=== PATIENT | female | born 1940 | race Caucasian/White ===

== ENCOUNTER 2019-08-15 11:36 | Observation (INO) ==
[2019-08-15] MEDS ORDERED: SODIUM CHLORIDE 0.9% 500 ML IV SCH (13:15)
--- NOTE | 2019-08-15 13:19 | Emergency Department Note ---
Impression & Plan Near syncope, Bigeminy, Bradycardia, Diaphoresis ED Provider Note NAME: RENATO ALICIA AGE: 78 SEX: F : 1940 ARRIVES VIA: Ambulance INFORMANT: [Patient][ems] ED PROVIDER(S): [Inocencio Cohn MD] CHIEF COMPLAINT: Near syncope HISTORY OF PRESENT ILLNESS: The patient is a 78-year-old female who presents by EMS after a near syncopal episode. The patient was outside and on the way in, began to feel warm across the chest. No chest pain, no dyspnea. She felt lightheaded and dizzy. She sat down in a chair and began to sweat. She felt quite faint. She was nauseated and vomited 1 time. Her whole episode lasted for about 15 to 20 minutes. Again, no chest pain or shortness of breath. The patient's pulse was noted to be low and EMS was summoned. The patient states she now feels better than before. She is on digoxin for a reported faster heart rate. She has had 5 coronary stents but never had an OK. The patient states she does at times get dizzy. The spells usually last few seconds at most, this was quite a bit longer and scared her. REVIEW OF SYSTEMS: See HPI for pertinent positives and negatives. A total of ten systems were reviewed and were otherwise negative. PMHx/PSHx: See Below SOCIAL HISTORY: See Below. PHYSICAL EXAM: GENERAL: Patient is in no acute distress. HEENT: No acute trauma, normocephalic atraumatic, mucous membranes moist, no nasal congestion, no scleral icterus. NECK: No stridor, no adenopathy, no meningismus, trachea is midline. LUNGS: Clear to auscultation bilaterally, no wheeze, no rhonchi, breath sounds equal. HEART: Irregular rhythm, somewhat bradycardic, no murmurs. ABDOMEN: Soft, nontender, bowel sounds positive, no hernias, no peritonitis. EXTREMITIES: No cyanosis or edema, full range of motion of all the joints without pain or difficulty, no signs for acute trauma. NEUROLOGIC: Oriented x 3, no acute motor or sensory deficits, no focal weakness. SKIN: No rash, no jaundice, no diaphoresis. DIFFERENTIAL DIAGNOSIS: Infection, dehydration, metabolic abnormality, hypo/hyperglycemia, dysrhythmia, A. fib or a flutter, OK, electrolyte disturbance, anemia, hypoxia, cardiac sources, intracerebral event, toxicologic, neurologic, as well as other pathologies. EMERGENCY DEPARTMENT COURSE/PROCEDURES: ECG: Indication was near syncope. The EKG shows a sinus rhythm with PVCs in a pattern of bigeminy. The rate is 68. There is no ST elevation, the QTc is 416. No PACs. Continuous Cardiac Monitoring: An order was placed for continuous cardiac monitoring. The monitor shows a rate of 66 with sinus rhythm with frequent PVCs. MEDICAL DECISION MAKING: There is a very slight leukocytosis, this could be consistent with the stress of her situation or possibly infection. A very mild anemia was noted. There was a normal platelet count. There was some dehydration/renal insufficiency present with a creatinine of 1.34. Magnesium was low at 1.6. No concerning liver enzyme elevation. The patient appeared to be in a euthyroid state. Urinalysis does not show evidence for infection. Digoxin level was actually low. EKG showed sinus rhythm with bigeminy, basically very frequent PVCs. Cardiac enzyme testing x1 was not consistent with acute cardiac injury. The patient received IV saline for hydration. She was given oral and IV magnesium. The patient presents with a near syncopal event. She was bradycardic on scene. She has had multiple PVCs, at times, she is in bigeminy. Given her cardiac history, given her presentation and findings, I do think a hospital stay is warranted. I did speak to the patient and wrapper caser. The on-call hospitalist was consulted. Past Med/Surg History Medical History CAD (coronary artery disease) DM w/o complication type II Right leg DVT 03/2019 - treated 3 months with eliquis (provoked by arthroscopic knee surgery) Surgical History H/O arthroscopy of right knee H/O: hysterectomy History of coronary artery stent placement 5 stents S/P appendectomy S/P laparoscopic cholecystectomy Family History Daughter , age 57 Coronary heart disease Congestive heart failure Father , age 71 Heart disease Mother , age 77 Heart disease Diabetes Social History Preferred Language: Eritrean Communication Ability: Effective Audio Operator Required: No Beliefs That Will Affect Care: None marital status: Current Living Situation: Spouse current occupational status: retired current occupation: worked in [employer] nearly 40 years Other Information That Helps Us Care for You: No other: 3 children; 1 recently (daughter) Feels Safe at Home: Yes Safety Concerns: Feels Safe At This Time Smoking Status: Never smoker Hx Alcohol Use: No Hx Substance Use: No Allergies Allergies Allergy/AdvReac Type Severity Reaction Status Date / Time No Known Allergies Allergy Unverified 08/15/19 14:03 Home Meds Home Medications Medication Instructions Recorded Confirmed aspirin [Aspir-81] 81 mg PO QAM 08/15/19 08/15/19 carvedilol 12.5 mg PO BID 08/15/19 08/15/19 digoxin 125 mcg PO QAM 08/15/19 08/15/19 metformin 1,000 mg PO BID 08/15/19 08/15/19 Results & Data (ED) Vital Signs Vital Signs - 24 hr 08/15/19 11:51 08/15/19 13:22 08/15/19 13:51 Temperature 36.7 C Temperature Source Oral Pulse Rate 73 Pulse Rate [Apical] 68 Respiratory Rate 18 18 Blood Pressure 158/51 H Blood Pressure [Left Arm] 151/52 H Blood Pressure Mean 86 Blood Pressure Mean [Left Arm] 85 Pulse Oximetry 98 96 97 Oxygen Delivery Method Room Air Room Air Room Air Sepsis Recent Fever Within 48 Hours No Sepsis New/Unexplained Change in Mental Status No Sepsis Action Taken by Nursing No Action Required 08/15/19 15:00 Temperature Temperature Source Pulse Rate Pulse Rate [Apical] 81 Respiratory Rate 18 Blood Pressure Blood Pressure [Left Arm] 168/102 H Blood Pressure Mean Blood Pressure Mean [Left Arm] 124 Pulse Oximetry 97 Oxygen Delivery Method Room Air Sepsis Recent Fever Within 48 Hours Sepsis New/Unexplained Change in Mental Status Sepsis Action Taken by Shelter Medications Current Medication List: was personally reviewed by me Laboratory Data Attestation: I reviewed the patient's lab results. Result diagrams: 08/15/19 12:20 08/15/19 12:20 Lab Results 08/15/19 08/15/19 08/15/19 Range/Units 12:20 12:20 12:20 WBC 10.89 H (4.8-10.8) K/uL RBC 3.69 L (4.2-5.4) M/uL Hgb 11.1 L (12.0-16.0) g/dL Hct 34.2 L (37-47) % MCV 92.7 (80-100) fL MCH 30.1 (25-34) pg MCHC 32.5 (32-36) g/dL RDW Std Deviation 48.6 H (36.4-46.3) fL RDW Coeff of Valerie 14.2 (11.5-14.5) % Plt Count 339 (130-400) K/uL MPV 11.4 H (7.4-10.4) fL Immature Gran % (Auto) 0.2 % Neut % (Auto) 66.6 % Lymph % (Auto) 24.1 % [place] % (Auto) 5.9 % Eos % (Auto) 1.7 % Baso % (Auto) 1.5 % Immature Gran # (Auto) 0.02 (0.00-0.02) K/uL Neut # (Auto) 7.27 H (1.4-6.5) K/uL Lymph # (Auto) 2.62 (1.2-3.4) K/uL [place] # (Auto) 0.64 H (0.11-0.59) K/uL Eos # (Auto) 0.18 (0-0.5) K/uL Baso # (Auto) 0.16 (0-0.2) K/uL Sodium 140 (136-145) mmol/L Potassium 4.6 (3.5-5.1) mmol/L Chloride 107 (98-107) mmol/L Carbon Dioxide 25 (21-32) mmol/L Anion Gap 8.0 (3-11) BUN 19 H (7-18) mg/dl Creatinine 1.34 H (0.6-1.2) mg/dl Est Cr Clr Drug Dosing 29.0 ml/min Est GFR ( Amer) 44.2 Est GFR (Non-Af Amer) 38.1 BUN/Creatinine Ratio 13.8 (10-20) Glucose 104 H (70-99) mg/dl Calcium 8.8 (8.5-10.1) mg/dl Magnesium 1.6 L (1.8-2.4) mg/dl Total Bilirubin 0.3 (0.2-1) mg/dl AST 15 (15-37) U/L ALT 12 (12-78) U/L Alkaline Phosphatase 57 (45-117) U/L Troponin I < 0.015 (0-0.045) ng/ml Total Protein 6.6 (6.4-8.2) gm/dl Albumin 2.9 L (3.4-5.0) gm/dl Globulin 3.7 (2.5-4.0) gm/dl Albumin/Globulin Ratio 0.8 L (0.9-2) TSH 2.650 (0.300-4.500) uIu/ml Urine Color Urine Appearance (Clear) Urine pH (4.5-7.5) Ur Specific [place] (1.000-1.030) Urine Protein (Negative) Urine Glucose (UA) (Negative) Urine Ketones (Negative) Urine Blood (Negative) Urine Nitrite (Negative) Urine Bilirubin (Negative) Urine Urobilinogen (Negative) Ur Leukocyte Esterase (Negative) Digoxin 0.2 L (0.8-2.0) ng/ml 08/15/19 Range/Units 15:50 WBC (4.8-10.8) K/uL RBC (4.2-5.4) M/uL Hgb (12.0-16.0) g/dL Hct (37-47) % MCV (80-100) fL MCH (25-34) pg MCHC (32-36) g/dL RDW Std Deviation (36.4-46.3) fL RDW Coeff of Valerie (11.5-14.5) % Plt Count (130-400) K/uL MPV (7.4-10.4) fL Immature Gran % (Auto) % Neut % (Auto) % Lymph % (Auto) % [place] % (Auto) % Eos % (Auto) % Baso % (Auto) % Immature Gran # (Auto) (0.00-0.02) K/uL Neut # (Auto) (1.4-6.5) K/uL Lymph # (Auto) (1.2-3.4) K/uL [place] # (Auto) (0.11-0.59) K/uL Eos # (Auto) (0-0.5) K/uL Baso # (Auto) (0-0.2) K/uL Sodium (136-145) mmol/L Potassium (3.5-5.1) mmol/L Chloride (98-107) mmol/L Carbon Dioxide (21-32) mmol/L Anion Gap (3-11) BUN (7-18) mg/dl Creatinine (0.6-1.2) mg/dl Est Cr Clr Drug Dosing ml/min Est GFR ( Amer) Est GFR (Non-Af Amer) BUN/Creatinine Ratio (10-20) Glucose (70-99) mg/dl Calcium (8.5-10.1) mg/dl Magnesium (1.8-2.4) mg/dl Total Bilirubin (0.2-1) mg/dl AST (15-37) U/L ALT (12-78) U/L Alkaline Phosphatase (45-117) U/L Troponin I (0-0.045) ng/ml Total Protein (6.4-8.2) gm/dl Albumin (3.4-5.0) gm/dl Globulin (2.5-4.0) gm/dl Albumin/Globulin Ratio (0.9-2) TSH (0.300-4.500) uIu/ml Urine Color Yellow Urine Appearance Clear (Clear) Urine pH 5.0 (4.5-7.5) Ur Specific [place] 1.012 (1.000-1.030) Urine Protein Negative (Negative) Urine Glucose (UA) Negative (Negative) Urine Ketones Negative (Negative) Urine Blood Negative (Negative) Urine Nitrite Negative (Negative) Urine Bilirubin Negative (Negative) Urine Urobilinogen Negative (Negative) Ur Leukocyte Esterase Negative (Negative) Digoxin (0.8-2.0) ng/ml Administered Medications Carvedilol (Coreg) 12.5 mg PO BID [facility] Stop: 09/14/19 20:59 Last Admin: 08/15/19 20:05 Dose: 12.5 mg Documented by: [id number] Enoxaparin Sodium (Lovenox) 30 mg SQ Q24H [facility] Stop: 09/14/19 19:59 Last Admin: 08/15/19 20:05 Dose: 30 mg Documented by: [id number] Sodium Chloride (Nss 1000ml) 1,000 mls @ 75 mls/hr IV .[id number] [facility] Stop: 08/16/19 08:13 Last Admin: 08/15/19 20:04 Dose: 75 mls/hr Documented by: [id number] Insulin Aspart (Novolog Flexpen) 0 units SC ACHS [facility] Stop: 09/14/19 18:53 Last Admin: 08/15/19 20:04 Dose: Not Given Documented by: [id number] Cosigned by: [id number] Admin: 08/15/19 20:04 Dose: Not Given Documented by: [id number] Cosigned by: [id number] Discontinued Medications Sodium Chloride (Nss) 500 mls @ 999 mls/hr IV .Q31M [facility] Stop: 08/15/19 13:45 Last Infusion: 08/15/19 14:01 Dose: 0 mls/hr Documented by: [id number] Admin: 08/15/19 13:27 Dose: 999 mls/hr Documented by: [id number] Magnesium Sulfate/Dextrose (Magnesium Sulfate / D5w) 1 gm in 100 mls @ 100 mls/hr IV NOW STA Stop: 08/15/19 14:37 Last Infusion: 08/15/19 14:51 Dose: 0 mls/hr Documented by: [id number] Admin: 08/15/19 13:47 Dose: 100 mls/hr Documented by: [id number] Magnesium Oxide (Mag-Ox) 400 mg PO NOW STA Stop: 08/15/19 13:39 Last Admin: 08/15/19 13:47 Dose: 400 mg Documented by: [id number] Imaging Data Radiologist's Impression: XR chest 1V portable HISTORY: 78 years-old Female weakness acute weakness COMPARISON: None TECHNIQUE: Portable AP view of the chest FINDINGS: Cardiomediastinal and hilar silhouettes are within normal limits. Coronary arterial stent. Calcified plaque of the thoracic aortic arch. No pneumothorax, large pleural effusion, overt pulmonary edema or airspace consolidation typical for pneumonia. Mild blunting of the costophrenic angles. Degenerative changes of the shoulders and spine. IMPRESSION: 1. No airspace consolidation to suggest pneumonia. 2. Mild blunting of the costophrenic angles may be secondary to atelectasis versus trace effusions. Blood Pressure Blood Pressure Findings: Elevated blood pressure Blood Pressure Disposition: further management by hospitalist Discharge Plan Visit Data *Final* Discharge Date/Time: 08/15/19 18:11 Chief Complaint: Syncope (Near Syncope) Stated Complaint: Near Syncope/Bradycardia ED Provider: Inocencio Cohn Discharge Problem: Near syncope, Bigeminy, Bradycardia, Diaphoresis Patient Disposition: Admitted As Inpatient Condition: Good Discharge Instructions Interventions: ED Discharge Assessment Last Done: 08/15/19 18:11
[2019-08-15 13:28] LABS: Basophils # (auto) 0.16 K/uL (0-0.2); Basophils % (auto) 1.5 %; Eosinophils # (auto) 0.18 K/uL (0-0.5); Eosinophils % (auto) 1.7 %; Hematocrit (blood only) 34.2 % (37-47); Hemoglobin 11.1 g/dL (12.0-16.0); Immature Granulocytes # (auto) 0.02 K/uL (0.00-0.02); Immature Granulocytes % (auto) 0.2 %; Lymphocytes # (auto) 2.62 K/uL (1.2-3.4); Lymphocytes % (auto) 24.1 %; Mean Corpuscular Hemoglobin 30.1 pg (25-34); Mean Corpuscular Hgb Conc 32.5 g/dL (32-36); Mean Corpuscular Volume 92.7 fL (80-100); Mean Platelet Volume 11.4 fL (7.4-10.4); Monocytes # (auto) 0.64 K/uL (0.11-0.59); Monocytes % (auto) 5.9 %; Neutrophils # (auto) 7.27 K/uL (1.4-6.5); Neutrophils % (auto) 66.6 %; Platelet Count 339 K/uL (130-400); RDW Coefficient of Variation 14.2 % (11.5-14.5); RDW Standard Deviation 48.6 fL (36.4-46.3); Red Blood Count 3.69 M/uL (4.2-5.4); White Blood Count 10.89 K/uL (4.8-10.8)
[2019-08-15 13:35] LABS: Albumin Level 2.9 gm/dl (3.4-5.0); BUN Creatinine Ratio 13.8 (10-20); Blood Urea Nitrogen 19 mg/dl (7-18); Calcium 8.8 mg/dl (8.5-10.1); Carbon Dioxide 25 mmol/L (21-32); Chloride 107 mmol/L (98-107); Est GFR (African American) 44.2; Est GFR (Non-African American) 38.1; Glucose 104 mg/dl (70-99); Magnesium 1.6 mg/dl (1.8-2.4); Potassium 4.6 mmol/L (3.5-5.1); Sodium 140 mmol/L (136-145)
--- NOTE | 2019-08-15 13:36 | XRay Report ---
XR chest 1V portable HISTORY: 78 years-old Female weakness acute weakness COMPARISON: None TECHNIQUE: Portable AP view of the chest FINDINGS: Cardiomediastinal and hilar silhouettes are within normal limits. Coronary arterial stent. Calcified plaque of the thoracic aortic arch. No pneumothorax, large pleural effusion, overt pulmonary edema or airspace consolidation typical for pneumonia. Mild blunting of the costophrenic angles. Degenerative changes of the shoulders and spine. IMPRESSION: 1. No airspace consolidation to suggest pneumonia. 2. Mild blunting of the costophrenic angles may be secondary to atelectasis versus trace effusions. ACT 112: Negative or not required by law. The above report was generated using voice recognition software. It may contain grammatical, syntax o r spelling errors. Electronically signed by: Jasson Driver M.D. 08/15/2019 1:35 PM
[2019-08-15] MEDS ORDERED: MAGNESIUM SULFATE / D5W 1 GM/100 ML BAG IV STA (13:38)
[2019-08-15] MEDS ORDERED: MAGNESIUM OXIDE 400 MG TAB PO STA (13:38)
[2019-08-15 13:46] LABS: Alanine Aminotransferase 12 U/L (12-78); Albumin Globulin Ratio 0.8 (0.9-2); Alkaline Phosphatase 57 U/L (45-117); Aspartate Aminotransferase 15 U/L (15-37); Bilirubin,Total 0.3 mg/dl (0.2-1); Globulin 3.7 gm/dl (2.5-4.0); Total Protein 6.6 gm/dl (6.4-8.2); Troponin I < 0.015 ng/ml (0-0.045)
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
--- NOTE | 2019-08-15 15:34 | Electrocardiogram Report ---
Test Reason : Blood Pressure : / mmHG Vent. Rate : 068 BPM Atrial Rate : 068 BPM P-R Int : 168 ms QRS Dur : 088 ms QT Int : 392 ms P-R-T Axes : 016 013 031 degrees QTc Int : 416 ms Sinus rhythm with frequent Premature ventricular complexes in a pattern of bigeminy Otherwise normal ECG No previous ECGs available Confirmed by Jamey Trejo ([id number]) on 08/15/2019 3:33:49 PM Referred By: REFERRED SELF Confirmed By:Rick Trejo
[2019-08-15 16:12] LABS: Appearance Urine Clear (Clear); Bilirubin Urine Negative (Negative); Blood Urine Negative (Negative); Color Urine Yellow; Glucose Urine UA Negative (Negative); Ketones Urine Negative (Negative); Leukocyte Esterase Urine Negative (Negative); Nitrite Urine Negative (Negative); Protein Urine Negative (Negative); Specific Gravity Urine 1.012 (1.000-1.030); Urobilinogen Urine Negative (Negative)
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
[2019-08-15] MEDS ORDERED: SODIUM CHLORIDE 0.9% 1000ML 1,000 ML IV SCH (18:54)
[2019-08-15] MEDS ORDERED: ONDANSETRON INJ 2 MG/ML 2 ML VIAL IV PRN (18:54)
[2019-08-15] MEDS ORDERED: ACETAMINOPHEN 325 MG TAB PO PRN (18:54)
[2019-08-15] MEDS ORDERED: NITROGLYCERIN SL 0.4 MG/TAB TAB SL PRN (18:54)
[2019-08-15] MEDS ORDERED: CARBOHYDRATES FOR HYPOGLYCEMIA PO PRN (19:15)
[2019-08-15] MEDS ORDERED: GLUCOSE 10 TABS/TUBE PO PRN (19:15)
[2019-08-15] MEDS ORDERED: GLUCOSE 40% GEL 15 GM TUBE PO PRN (19:15)
[2019-08-15] MEDS ORDERED: GLUCAGON FOR INJ 1 MG VIAL IM PRN (19:15)
[2019-08-15] MEDS ORDERED: DEXTROSE 50% 50 ML SYRINGE IV PRN (19:15)
[2019-08-15] MEDS ORDERED: ENOXAPARIN INJ 30 MG/0.3 ML SYR SQ SCH (20:00)
[2019-08-15] MEDS: INSULIN ASPART 100 UNITS/ML 3 ML PEN SC SCH (20:04)
[2019-08-15] MEDS: carvediloL 12.5 MG TAB PO SCH (20:05)
[2019-08-16] MEDS: carvediloL 12.5 MG TAB PO SCH (07:33)
[2019-08-16] MEDS: INSULIN ASPART 100 UNITS/ML 3 ML PEN SC SCH ×2 (08:38→12:22)
[2019-08-16] MEDS ORDERED: ASPIRIN 81 MG ECTAB PO SCH (09:00)
--- NOTE | 2019-08-16 09:30 | XCELERA ---
[id number]
[2019-08-16 10:17] LABS: Basophils # (auto) 0.11 K/uL (0-0.2); Basophils % (auto) 1.3 %; Eosinophils # (auto) 0.25 K/uL (0-0.5); Eosinophils % (auto) 2.9 %; Hemoglobin 10.4 g/dL (12.0-16.0); Immature Granulocytes # (auto) 0.02 K/uL (0.00-0.02); Immature Granulocytes % (auto) 0.2 %; Lymphocytes # (auto) 2.75 K/uL (1.2-3.4); Mean Corpuscular Hemoglobin 29.6 pg (25-34); Mean Corpuscular Hgb Conc 31.5 g/dL (32-36); Mean Platelet Volume 10.7 fL (7.4-10.4); Monocytes # (auto) 0.31 K/uL (0.11-0.59); Monocytes % (auto) 3.6 %; Neutrophils # (auto) 5.16 K/uL (1.4-6.5); Platelet Count 323 K/uL (130-400); RDW Coefficient of Variation 14.4 % (11.5-14.5); RDW Standard Deviation 49.3 fL (36.4-46.3); Red Blood Count 3.51 M/uL (4.2-5.4)
--- NOTE | 2019-08-16 10:29 | Cardiology Progress Note ---
Date of Service August 16, 2019 Assessment & Plan (1) Pre-syncope: Believe the etiology the patient's episode was likely high vagal tone. There was some concern regarding an arrhythmia given her cardiac history. However, with preserved LV systolic function in the absence of notable arrhythmi as on telemetry monitoring he would be safe for discharge. (2) Ventricular bigeminy: Does have frequent PVCs. She is not symptomatic. She has preserved LV systolic function. She is on a beta-medardo which could be increased over time perhaps improved efficacy in reducing PVCs.. (3) CAD (coronary artery disease): No current symptoms to suggest coronary insufficiency or angina. I do not think her symptoms were related to an acute coronary event. Symptoms leading up to her prior interventions involve mostly dyspnea which he has not had recently. She should continue on secondary prevention. She is on aspirin. She is not on a anti-lipid agent. Admission and Anticipated Discharge Date Admission Date: August 15, 2019 Subjective Summary the patient is feeling well. No recurrent symptoms of nausea or dizziness. She has not been aware of palpitations. She has been ambulatory without dizziness or recurrent symptoms. Review of Systems Review of Systems: Per HPI Physical Exam Physical Exam: She is alert and oriented x3. Mood affect appear normal. She answered all questions appropriately. HEENT: Sclerae are anicteric. Pupils are equal and reactive to light and accommodation. Extraocular movements were intact. Neuro: Cranial nerves intact Lungs: Lungs are clear to auscultation bilaterally. There are no rales wheezes or rhonchi. She has normal respiratory effort without use of accessory muscles. There is normal pulmonary excursion. Cardiac: The rhythm was irregular with frequent ectopy. S1 and S2 were normal. There are no murmurs on examination. The PMI was not markedly displaced on palpation. Abdomen: The abdomen was soft and nontender. Extremities: Patient has bilateral radial pulses that are equal in intensity. There is no evidence cyanosis or clubbing. There was no evidence of significant peripheral edema bilaterally. Skin: There are no rashes noted on examination today. She has some abrasions on her right hand and forearm Results & Data ([facility]) Vital Signs (Past 12 Hours) Vital Signs Temp Pulse Pulse Resp BP BP Pulse Ox 08/16/19 07:47 36.6 C 86 18 145/71 H 95 08/16/19 04:34 36.5 C 64 17 138/58 L 98 08/16/19 00:18 36.4 C L 56 L 18 125/60 96 Laboratory Results Abnormal Lab Results 08/15/19 08/15/19 08/15/19 12:20 12:20 12:20 WBC 10.89 H RBC 3.69 L Hgb 11.1 L Hct 34.2 L MCV 92.7 MCH 30.1 MCHC 32.5 RDW Std Deviation 48.6 H RDW Coeff of Valerie 14.2 Plt Count 339 MPV 11.4 H Immature Gran % (Auto) 0.2 Neut % (Auto) 66.6 Lymph % (Auto) 24.1 Wheeler % (Auto) 5.9 Eos % (Auto) 1.7 Baso % (Auto) 1.5 Immature Gran # (Auto) 0.02 Neut # (Auto) 7.27 H Lymph # (Auto) 2.62 Wheeler # (Auto) 0.64 H Eos # (Auto) 0.18 Baso # (Auto) 0.16 Sodium 140 Potassium 4.6 Chloride 107 Carbon Dioxide 25 Anion Gap 8.0 BUN 19 H Creatinine 1.34 H Est Cr Clr Drug Dosing 29.0 Est GFR ( Amer) 44.2 Est GFR (Non-Af Amer) 38.1 BUN/Creatinine Ratio 13.8 Glucose 104 H POC Glucose Calcium 8.8 Magnesium 1.6 L Total Bilirubin 0.3 AST 15 ALT 12 Alkaline Phosphatase 57 Troponin I < 0.015 Total Protein 6.6 Albumin 2.9 L Globulin 3.7 Albumin/Globulin Ratio 0.8 L TSH 2.650 Urine Color Urine Appearance Urine pH Ur Specific [place] Urine Protein Urine Glucose (UA) Urine Ketones Urine Blood Urine Nitrite Urine Bilirubin Urine Urobilinogen Ur Leukocyte Esterase Digoxin 0.2 L 08/15/19 08/15/19 08/15/19 15:50 19:03 19:06 WBC RBC Hgb Hct MCV MCH MCHC RDW Std Deviation RDW Coeff of Valerie Plt Count MPV Immature Gran % (Auto) Neut % (Auto) Lymph % (Auto) Wheeler % (Auto) Eos % (Auto) Baso % (Auto) Immature Gran # (Auto) Neut # (Auto) Lymph # (Auto) Wheeler # (Auto) Eos # (Auto) Baso # (Auto) Sodium Potassium Chloride Carbon Dioxide Anion Gap BUN Creatinine Est Cr Clr Drug Dosing Est GFR ( Amer) Est GFR (Non-Af Amer) BUN/Creatinine Ratio Glucose POC Glucose 87 Calcium Magnesium Total Bilirubin AST ALT Alkaline Phosphatase Troponin I < 0.015 Total Protein Albumin Globulin Albumin/Globulin Ratio TSH Urine Color Yellow Urine Appearance Clear Urine pH 5.0 Ur Specific [place] 1.012 Urine Protein Negative Urine Glucose (UA) Negative Urine Ketones Negative Urine Blood Negative Urine Nitrite Negative Urine Bilirubin Negative Urine Urobilinogen Negative Ur Leukocyte Esterase Negative Digoxin 08/16/19 08/16/19 08/16/19 01:07 08:11 09:58 WBC 8.60 RBC 3.51 L Hgb 10.4 L Hct 33.0 L MCV 94.0 MCH 29.6 MCHC 31.5 L RDW Std Deviation 49.3 H RDW Coeff of Valerie 14.4 Plt Count 323 MPV 10.7 H Immature Gran % (Auto) 0.2 Neut % (Auto) 60.0 Lymph % (Auto) 32.0 Wheeler % (Auto) 3.6 Eos % (Auto) 2.9 Baso % (Auto) 1.3 Immature Gran # (Auto) 0.02 Neut # (Auto) 5.16 Lymph # (Auto) 2.75 Wheeler # (Auto) 0.31 Eos # (Auto) 0.25 Baso # (Auto) 0.11 Sodium Potassium Chloride Carbon Dioxide Anion Gap BUN Creatinine Est Cr Clr Drug Dosing Est GFR ( Amer) Est GFR (Non-Af Amer) BUN/Creatinine Ratio Glucose POC Glucose 136 H Calcium Magnesium Total Bilirubin AST ALT Alkaline Phosphatase Troponin I < 0.015 Total Protein Albumin Globulin Albumin/Globulin Ratio TSH Urine Color Urine Appearance Urine pH Ur Specific [place] Urine Protein Urine Glucose (UA) Urine Ketones Urine Blood Urine Nitrite Urine Bilirubin Urine Urobilinogen Ur Leukocyte Esterase Digoxin Diagnostic Findings Echocardiogram performed today revealed preserved LV systolic function. Mild mitral regurgitation. ECG Additional Comments: Laboratory demonstrated frequent PVCs but no other significant arrhythmias. No significant pauses. PG Care Time/CCT Total # of Minutes Spent Total Time Spent with Patient: Total time spent is greater than 50% in coordination of care (as documented) at patient's floor/unit and/or counseling patient: Coding Level of Care Code 51378 Subseq Hosp Care Lvl 2 Diagnoses Pre-syncope R55 Ventricular bigeminy I49.9 CAD (coronary artery disease) I25.10 Coronary Disease-Associated Artery/Lesion type: [place] artery [place] vs. transplanted heart: [place] heart Associated angina: without angina (1) CAD (coronary artery disease) Coronary Disease-Associated Artery/Lesion type: [place] artery [place] vs. transplanted heart: [place] heart Associated angina: without angina Qualified Code(s): I25.10 - Atherosclerotic heart disease of [place] coronary artery without angina pectoris
[2019-08-16 10:37] LABS: BUN Creatinine Ratio 11.9 (10-20); Calcium 8.2 mg/dl (8.5-10.1); Creatinine Clr Calc Pharmacy 32.7 ml/min; Est GFR (African American) 51.5; Est GFR (Non-African American) 44.5; Magnesium 1.7 mg/dl (1.8-2.4); Potassium 4.3 mmol/L (3.5-5.1)
[2019-08-16 10:42] LABS: Ferritin 86.6 ng/ml (8-388)
[2019-08-16 10:48] LABS: Folate (Folic Acid) 12.84 ng/ml (>5.38)
[2019-08-16] MEDS ORDERED: MAGNESIUM SULFATE / D5W 1 GM/100 ML BAG IV ONE (11:00)
--- NOTE | 2019-08-16 12:16 | Electrocardiogram Report ---
Test Reason : Blood Pressure : / mmHG Vent. Rate : 059 BPM Atrial Rate : 059 BPM P-R Int : 176 ms QRS Dur : 088 ms QT Int : 422 ms P-R-T Axes : 004 019 030 degrees QTc Int : 417 ms Sinus bradycardia with frequent Premature ventricular complexes in a pattern of bigeminy Otherwise normal ECG When compared with ECG of 15-AUG-2019 11:47, No significant change was found Confirmed by Jamey Trejo ([id number]) on 08/16/2019 12:15:35 PM Referred By: REFERRED SELF Confirmed By:Rick Trejo
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
== END 2019-08-16 14:25 | disposition home or self-care (01) ==
LOC: ED 11:36 → 2W 11:36 → SUATTDRO 16:07 → 2W 18:11

== ENCOUNTER 2020-07-08 15:59 | Observation (INO) ==
[2020-07-08 16:32] LABS: Basophils # (auto) 0.06 K/uL (0-0.2); Basophils % (auto) 0.5 %; Eosinophils # (auto) 0.19 K/uL (0-0.5); Eosinophils % (auto) 1.7 %; Hematocrit (blood only) 36.8 % (37-47); Hemoglobin 12.1 g/dL (12.0-16.0); Immature Granulocytes # (auto) 0.01 K/uL (0.00-0.02); Immature Granulocytes % (auto) 0.1 %; Lymphocytes # (auto) 3.44 K/uL (1.2-3.4); Lymphocytes % (auto) 31.3 %; Mean Corpuscular Hemoglobin 30.2 pg (25-34); Mean Corpuscular Hgb Conc 32.9 g/dL (32-36); Mean Corpuscular Volume 91.8 fL (80-100); Mean Platelet Volume 11.7 fL (7.4-10.4); Monocytes # (auto) 0.73 K/uL (0.11-0.59); Monocytes % (auto) 6.6 %; Neutrophils # (auto) 6.57 K/uL (1.4-6.5); Neutrophils % (auto) 59.8 %; Platelet Count 290 K/uL (130-400); RDW Coefficient of Variation 14.5 % (11.5-14.5); RDW Standard Deviation 48.9 fL (36.4-46.3); Red Blood Count 4.01 M/uL (4.2-5.4)
[2020-07-08 16:42] LABS: Alanine Aminotransferase 13 U/L (12-78); Albumin Level 3.4 gm/dl (3.4-5.0); Aspartate Aminotransferase 15 U/L (15-37); BUN Creatinine Ratio 13.7 (10-20); Blood Urea Nitrogen 21 mg/dl (7-18); Calcium 9.1 mg/dl (8.5-10.1); Carbon Dioxide 26 mmol/L (21-32); Chloride 106 mmol/L (98-107); Creatinine Clr Calc Pharmacy 27.4 ml/min; Est GFR (African American) 37.7; Est GFR (Non-African American) 32.5; Glucose 88 mg/dl (70-99); Magnesium 1.8 mg/dl (1.8-2.4); Potassium 4.2 mmol/L (3.5-5.1); Sodium 140 mmol/L (136-145)
[2020-07-08 16:46] LABS: Partial Thromboplastin Ratio 0.8; Partial Thromboplastin Time 20.9 Seconds (21.0-31.0); Prothrombin Time 10.3 Seconds (9.0-12.0)
[2020-07-08 16:53] LABS: Albumin Globulin Ratio 0.9 (0.9-2); Alkaline Phosphatase 55 U/L (45-117); Bilirubin,Total 0.3 mg/dl (0.2-1); Globulin 3.6 gm/dl (2.5-4.0); Troponin I < 0.015 ng/ml (0-0.045)
--- NOTE | 2020-07-08 17:00 | XRay Report ---
SINGLE VIEW CHEST CLINICAL HISTORY: Dysrhythmia. FINDINGS: An AP, portable, upright chest radiograph is compared to study dated 08/15/2019. The heart i s enlarged noting atherosclerotic calcification of the thoracic aorta. The pulmonary vasculature is n oncongested. Mild atelectasis is noted at the lung bases. The lungs and pleural spaces are otherwise clear. No pneumothorax is seen. The skeletal structures are osteopenic. The bony thorax is grossly in tact. IMPRESSION: Cardiomegaly with no active disease in the chest. ACT 112: Negative or not required by law. Electronically signed by: Inocencio Jessica M.D. 07/08/2020 4:59 PM
[2020-07-08] MEDS ORDERED: SODIUM CHLORIDE 0.9% 1000ML 500 ML IV ONE (17:03)
[2020-07-08 17:04] LABS: Lyme Ab IgG w/WB Rflx Negative (Negative)
[2020-07-08 17:05] LABS: Lyme Ab IgM w/WB Rflx Negative (Negative)
[2020-07-08 17:19] LABS: Phosphorus 3.1 mg/dl (2.5-4.9)
[2020-07-08 18:10] LABS: Influenza A virus by PCR Negative (Neg); Influenza B virus by PCR Negative (Neg); RSV by PCR Negative (Neg); SARS CoV2 RNA(COVID-19) InHosp NEGATIVE (Negative)
[2020-07-08] MEDS: MAGNESIUM SULFATE / D5W 1 GM/100 ML BAG IV SCH ×2 (18:24→19:29)
[2020-07-08] MEDS: SODIUM CHLORIDE 0.9% 1000ML 1,000 ML IV SCH (18:24)
--- NOTE | 2020-07-08 18:34 | History & Physical Report ---
Date of Service July 08, 2020 Assessment & Plan (1) Arrhythmia: Patient with fluctuating heart rate - She has had a history of PVC and was placed on Carvedilol which she continues. - PJV vs PVC- with bradycardia on admission - ? 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 (2) CAD (coronary artery disease): Stents as per HPI- patient has her stent cards with her - Continue ASA - Hold Carvedilol tonight - If HR >110 or patient has cardiac symptoms, consider 5mg Lopressor IV - Not on statin (3) History of coronary artery stent placement: As above- no acute concerns at this time (4) DM w/o complication type II: On metformin as outpatient - Hold while in house - Aspart sliding scale- correction factor 40, with 1:20 ratio; goal 120-180 (5) BRENNAN (acute kidney injury): Patient appears euvolemic on exam and has not changed fluid or nutrition intake - BRENNAN type II - Appears pre-renal which may be from vomitting earlier- she received IVF in ER and is now tolerating PO - Urine labs pending- for FeNA - Follow in morning (6) DVT prophylaxis: SCD's, ambulation, heparin 5000 TID sub q CODE: FULL Diet carb consistent History of Present Illness Primary Care Provider: Marlin Rowe MD 79 YOF with past medical history of CAD without infarctions or CABG. She has stents to LAD, Marginal, Circumflex, She follows with Dr. 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 Patient comes in today as she was sitting on her couch doing a word jumble, and got flushed, dizzy, and nauseated which then progressed to vomiting. She called her daughter who came over and they checked her pulse on pulse oximeter, and it said it was in the 30-40 range and it being irregular. She also seen the number go from 40-70 then back to 50. They called EMS and they also reported 40s. She felt like after she got her nausea under control a few hours ago did she feel better. Patient denies any symptoms of chest discomfort or dyspnea. 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 The patient denies any change in her medications, she was just at the doctor's last week with reported HGB A1C 5.7. She also cut her grass last week and can go up and down steps at her house without any dyspnea or chest pain. Overall well appearing. Telemetry was reviewed with sinus rhythm with which appears premature junctional complexes and scattered PVC's. She will be admitted to PCU with telemetry monitoring, ECHO, cardiology consult, and will hold her Carvedilol tonight. Allergies Allergy/AdvReac Type Severity Reaction Status Date / Time No Known Allergies Allergy Unverified 07/08/20 16:54 Home Medications Medication Instructions Recorded Confirmed Type carvedilol 12.5 mg PO BID 08/15/19 07/08/20 History metformin 1,000 mg PO BID 08/15/19 07/08/20 History aspirin [Aspirin Low Dose] 81 mg PO QAM 07/08/20 07/08/20 History cyanocobalamin (vitamin B-12) 1,000 mcg SUBLINGUAL DAILY 07/08/20 07/08/20 History [Vitamin B-12] Past Med/Surg History Medical History (Updated 07/08/20 @ 19:03 by LA Dickerson) CAD (coronary artery disease) DM w/o complication type II Right leg DVT 03/2019 - treated 3 months with eliquis (provoked by arthroscopic knee surgery) Surgical History H/O arthroscopy of right knee H/O: hysterectomy History of coronary artery stent placement 5 stents S/P appendectomy S/P laparoscopic cholecystectomy Family History Daughter , age 57 Coronary heart disease Congestive heart failure Father , age 71 Heart disease Mother , age 77 Heart disease Diabetes Social History Smoking Status: Never smoker Hx Alcohol Use: No Hx Substance Use: No Preferred Language: Uzbek Communication Ability: Effective 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 Beliefs That Will Affect Care: None marital status: Current Living Situation: Spouse current occupational status: retired current occupation: worked in [employer] nearly 40 years other: 3 children; 1 recently (daughter) Feels Safe at Home: Yes Assistive Devices: Denture - Upper, Denture - Lower and Hearing Aid - Bilateral Review of Systems Review of Systems: REVIEW OF SYSTEMS: Constitutional: No fever, sweats or chills Eyes: No diplopia, no worsening or blurred vision ENT: (+) wears hearing aid, no trouble swallowing Respiratory: No cough, sputum, dyspnea at rest or on exertion Cardiovascular: (+) palpitations with dizziness, No chest pain, tightness Abdomen: (+) nausea, vomiting, No pain, diarrhea or constipation Musculoskeletal: No joint pain, calf pain, swelling Neurologic: No weakness, numbness/tingling, or balance problems Psychiatric: No anxiety or depression Skin: No rash or itch, has skin tag on gluteal cleft Physical Exam Physical Exam: PHYSICAL EXAM: General: awake, alert, no apparent distress Head: Normocephalic, atraumatic ENT: PERRL, EOMI, no pharyngeal exudate, mucous membranes moist Neuro: AAO x 3, speech clear and appropriate, strength intact bilaterally 5/5, sensation intact and equal all extremities and dermatomes, no pronator drift Chest: equal rise and fall of the chest, no accessory muscle use, no heaves or thrills, Clear to auscultation, on room air, Cardiac: Irregular rate and rhythm, telemetry reviewed as above, skin warm dry, cap refill <3 seconds, peripheral pulses +2 no JVD, no murmur, no edema GI: NABS x 4 quadrants, soft, nontender to palpation, no rebound, guarding or tenderness : Spontaneously voiding, no pain, no CVA tenderness, Extremities: Normal inspection, no peripheral edema or erythema, calfs nontender to palpation Psych: Normal mood and affect Skin: no rash or erythema Results & Data Results & Data ([facility]) Vital Signs (Past 12 Hours) Vital Signs Temp Pulse Pulse Resp BP BP Pulse Ox 07/08/20 17:00 73 18 147/88 H 96 07/08/20 16:48 74 87 17 150/64 H 150/64 H 95 07/08/20 16:31 78 22 126/92 97 07/08/20 16:19 61 18 150/78 H 98 07/08/20 16:08 36.7 C 65 20 150/78 H 97 Laboratory Results Abnormal lab results 07/08/20 07/08/20 07/08/20 Range/Units 15:40 15:40 15:40 WBC 11.00 H (4.8-10.8) K/uL RBC 4.01 L (4.2-5.4) M/uL Hct 36.8 L (37-47) % RDW Std Deviation 48.9 H (36.4-46.3) fL MPV 11.7 H (7.4-10.4) fL Neut # (Auto) 6.57 H (1.4-6.5) K/uL Lymph # (Auto) 3.44 H (1.2-3.4) K/uL [place] # (Auto) 0.73 H (0.11-0.59) K/uL APTT 20.9 L (21.0-31.0) Seconds BUN 21 H (7-18) mg/dl Creatinine 1.52 H (0.6-1.2) mg/dl Diagnostic Findings Chest X-Ray 07/08/20 16:15 SINGLE VIEW CHEST CLINICAL HISTORY: Dysrhythmia. FINDINGS: An AP, portable, upright chest radiograph is compared to study dated 08/15/2019. The heart is enlarged noting atherosclerotic calcification of the thoracic aorta. The pulmonary vasculature is noncongested. Mild atelectasis is noted at the lung bases. The lungs and pleural spaces are otherwise clear. No pneumothorax is seen. The skeletal structures are osteopenic. The bony thorax is grossly intact. IMPRESSION: Cardiomegaly with no active disease in the chest. Electronically signed by: Inocencio Jessica M.D. 07/08/2020 4:59 PM Medications Administered Sodium Chloride (Nss 1000ml) 1,000 mls @ 150 mls/hr IV .Q6H40M HAFSA Stop: 08/07/20 17:14 Last Admin: 07/08/20 18:24 Dose: 150 mls/hr Documented by: [id number] Magnesium Sulfate/Dextrose (Magnesium Sulfate / D5w) 1 gm in 100 mls @ 50 mls/hr IV Q1H HAFSA Stop: 07/08/20 19:59 Last Admin: 07/08/20 18:24 Dose: 50 mls/hr Documented by: [id number] Discontinued Medications Sodium Chloride (Nss 1000ml) 500 mls @ 999 mls/hr IV .Q31M ONE Stop: 07/08/20 17:33 Last Admin: 07/08/20 17:23 Dose: 999 mls/hr Documented by: [id number] ECG Additional Comments: Sinus rhythm with frequent Premature ventricular complexes in a pattern of bigeminy Otherwise normal ECG When compared with ECG of 16-AUG-2019 06:35, No significant change was found Code Status & VTE Plan Code Status CODE: FULL VTE: SCD's, ambulation, heaparin 5000 TID Subq VTE Prophylaxis Plan VTE Prophylaxis will be ordered: Yes Supervising Physician Co-Signing Physician Notes Case discussed with nurse practitioner, agree with his note above. Patient presented to the emergency room after an episode of near syncope with diaphoresis and nausea with vomiting. Patient was found to be in bigeminy on presentation, appears that the patient has had symptomatology like this before with previous findings. Plan to consult cardiology to discuss possible pacemaker placement. Hold carvedilol. 2D echo. Replete magnesium. IV fluids for acute kidney injury. PG Care Time/CCT Total # of Minutes Spent Total Time Spent with Patient: Total time spent is greater than 50% in coordination of care (as documented) at patient's floor/unit and/or counseling patient: Coding Level of Care Code 97605 Initial Inpt Care Lvl 3 Diagnoses Arrhythmia I49.8 Arrhythmia type: other cardiac arrhythmia CAD (coronary artery disease) I25.10 Associated angina: without angina Coronary Disease-Associated Artery/Lesion type: [place] artery [place] vs. 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 transplanted heart: [place] heart Qualified Code(s): I25.10 - Atherosclerotic heart disease of [place] coronary artery without angina pectoris (3) Arrhythmia Arrhythmia type: other cardiac arrhythmia Qualified Code(s): I49.8 - Other specified cardiac arrhythmias
--- NOTE | 2020-07-08 18:49 | Emergency Department Note ---
History of Present Illness General Chief complaint: Bradycardia Stated complaint: BRADYCARDIA Time Seen by Provider: 07/08/20 16:04 Source: patient and RN notes reviewed Mode of arrival: EMS Limitations: no limitations History of Present Illness Provider complaint: Near syncopal episode, diaphoresis This patient is a 79-year-old female who presents emergency department by EMS after a near syncopal episode. The patient states she was sitting at a table and without changing positions suddenly felt lightheaded, dizzy and became diaphoretic. She states she sweat through her clothing. Patient did experience some chest pressure but did not have any palpitations. This did happen her one time previously in August 2019. The patient was admitted to our facility and was noted to be in bigeminy at that time. Patient states she was feeling well prior to the incident. She had eaten breakfast. Her daughter was present and is a nursing home manager, took her heart rate and it was noted to be in the 40s. EMS was called. The patient is uncertain if she completely lost consciousness but she denies any prolonged period of unconsciousness. She also denies any head injury. Home Medications Medication Instructions Recorded Confirmed Type metformin 1,000 mg PO BID 08/15/19 07/08/20 History aspirin [Aspirin Low Dose] 81 mg PO QAM 07/08/20 07/08/20 History cyanocobalamin (vitamin B-12) 1,000 mcg SUBLINGUAL DAILY 07/08/20 07/08/20 Histo ry carvedilol 6.25 mg PO BID #0 tab 07/10/20 07/08/20 Rx Allergies Allergy/AdvReac Type Severity Reaction Status Date / Time No Known Allergies Allergy Unverified 07/08/20 16:54 Past Med/Surg History Medical History (Updated 07/12/20 @ 14:10 by Yeal Roberson MD) CAD (coronary artery disease) DM w/o complication type II Right leg DVT 03/2019 - treated 3 months with eliquis (provoked by arthroscopic knee surgery) Surgical History H/O arthroscopy of right knee H/O: hysterectomy History of coronary artery stent placement 5 stents S/P appendectomy S/P laparoscopic cholecystectomy Family History Daughter , age 57 Coronary heart disease Congestive heart failure Father , age 71 Heart disease Mother , age 77 Heart disease Diabetes Social History Smoking Status: Never smoker Hx Alcohol Use: No Hx Substance Use: No Preferred Language: Bolivian Communication Ability: Effective Key Bed Installer Required: No Beliefs That Will Affect Care: None marital status: Current Living Situation: Spouse current occupational status: retired current occupation: worked in [employer] nearly 40 years other: 3 children; 1 recently (daughter) Feels Safe at Home: Yes Assistive Devices: None Review of Systems See HPI for pertinent positives & negatives. and A total of 10 systems reviewed and were otherwise negative Physical Exam Vital Signs Vital Signs - 24 hr 07/08/20 16:08 07/08/20 16:19 07/08/20 16:31 Temperature 36.7 C Temperature Source Oral Pulse Rate 65 61 78 Pulse Rate [Left Finger] Pulse Rate from SpO2 Sensor 67 106 H Pulse Rhythm Regular Pulse Strength Normal Respiratory Rate 20 18 22 Respiratory Effort / Characteristics Non-Labored Spontaneous Respiratory Depth Normal Respiratory Pattern Regular Blood Pressure 150/78 H 150/78 H 126/92 Blood Pressure [Left Arm] Blood Pressure Mean 102 102 103 Blood Pressure Mean [Left Arm] Blood Pressure Position Sitting Blood Pressure Position [Left Arm] Pulse Oximetry 97 98 97 Oxygen Delivery Method Room Air Sepsis Recent Fever Within 48 Hours No Sepsis New/Unexplained Change in Mental Status No Sepsis Action Taken by Nursing No Action Required 07/08/20 16:48 07/08/20 17:00 07/08/20 17:31 Temperature Temperature Source Pulse Rate 74 73 65 Pulse Rate [Left Finger] 87 Pulse Rate from SpO2 Sensor 98 H 83 104 H Pulse Rhythm Pulse Strength Respiratory Rate 17 18 31 H Respiratory Effort / Characteristics Non-Labored Spontaneous Respiratory Depth Normal Respiratory Pattern Regular Blood Pressure 150/64 H 147/88 H 155/61 H Blood Pressure [Left Arm] 150/64 H Blood Pressure Mean 92 107 92 Blood Pressure Mean [Left Arm] 92 Blood Pressure Position Blood Pressure Position [Left Arm] Sitting Pulse Oximetry 95 96 95 Oxygen Delivery Method Room Air Sepsis Recent Fever Within 48 Hours Sepsis New/Unexplained Change in Mental Status Sepsis Action Taken by Nursing 07/08/20 18:01 07/08/20 18:31 Temperature Temperature Source Pulse Rate 71 68 Pulse Rate [Left Finger] Pulse Rate from SpO2 Sensor 43 L 78 Pulse Rhythm Pulse Strength Respiratory Rate 18 18 Respiratory Effort / Characteristics Respiratory Depth Respiratory Pattern Blood Pressure 120/57 L 145/110 H Blood Pressure [Left Arm] Blood Pressure Mean 78 121 Blood Pressure Mean [Left Arm] Blood Pressure Position Blood Pressure Position [Left Arm] Pulse Oximetry 97 96 Oxygen Delivery Method Sepsis Recent Fever Within 48 Hours Sepsis New/Unexplained Change in Mental Status Sepsis Action Taken by Nursing Vital signs reviewed. General: Well-appearing 79-year-old female, in no significant distress. HEENT: No scleral icterus, PERRLA, neck supple. Atraumatic. Cardiovascular: Irregular with frequent ectopy, no extra sounds. Pulmonary: Clear to auscultation bilaterally, normal work of breathing. Abdomen: Soft, nontender, nondistended, positive bowel sounds. Musculoskeletal: Atraumatic, no peripheral edema. Neurologic: Patient awake alert and oriented x 3 Skin: Warm, dry, no rash Course Administered Medications Discontinued Medications Aspirin (Aspirin 81 Mg Ectab) 81 mg PO QAM [facility] Stop: 08/08/20 08:59 Last Admin: 07/10/20 08:45 Dose: 81 mg Documented by: [id number] Admin: 07/09/20 07:57 Dose: 81 mg Documented by: [id number] Carvedilol (Carvedilol 6.25 Mg Tab) 6.25 mg PO BID [facility] Stop: 08/08/20 20:59 Last Admin: 07/10/20 08:45 Dose: 6.25 mg Documented by: [id number] Admin: 07/09/20 22:39 Dose: 6.25 mg Documented by: [id number] Cyanocobalamin (Cyanocobalamin 500 Mcg Tablet (Vitamin B-12)) 1,000 mcg PO DAILY [facility] Stop: 08/08/20 08:59 Last Admin: 07/10/20 08:45 Dose: 1,000 mcg Documented by: [id number] Admin: 07/09/20 07:57 Dose: 1,000 mcg Documented by: [id number] Heparin Sodium (Porcine) (Heparin Sod 5,000 Unit/0.5 Ml Vial) 5,000 units SQ Q8 [facility] Stop: 08/07/20 21:59 Last Admin: 07/10/20 06:05 Dose: 5,000 units Documented by: [id number] Admin: 07/09/20 22:19 Dose: 5,000 units Documented by: [id number] Admin: 07/09/20 13:26 Dose: 5,000 units Documented by: [id number] Admin: 07/09/20 05:29 Dose: 5,000 units Documented by: [id number] Admin: 07/08/20 22:59 Dose: 5,000 units Documented by: [id number] Sodium Chloride (Nss 1000ml) 500 mls @ 999 mls/hr IV .Q31M ONE Stop: 07/08/20 17:33 Last Infusion: 07/08/20 19:24 Dose: 0 mls/hr Documented by: [id number] Admin: 07/08/20 17:23 Dose: 999 mls/hr Documented by: [id number] Sodium Chloride (Nss 1000ml) 1,000 mls @ 150 mls/hr IV .Q6H40M [facility] Stop: 08/07/20 17:14 Last Infusion: 07/09/20 13:18 Dose: 0 mls/hr Documented by: [id number] Admin: 07/09/20 07:54 Dose: 150 mls/hr Documented by: [id number] Infusion: 07/09/20 07:54 Dose: 150 mls/hr Documented by: [id number] Admin: 07/09/20 01:59 Dose: 150 mls/hr Documented by: [id number] Infusion: 07/09/20 01:05 Dose: 150 mls/hr Documented by: [id number] Admin: 07/08/20 18:24 Dose: 150 mls/hr Documented by: [id number] Magnesium Sulfate/Dextrose (Magnesium Sulfate / D5w) 1 gm in 100 mls @ 50 mls/hr IV Q1H [facility] Stop: 07/08/20 19:59 Last Infusion: 07/08/20 21:33 Dose: 0 mls/hr Documented by: [id number] Admin: 07/08/20 19:29 Dose: 50 mls/hr Documented by: [id number] Infusion: 07/08/20 19:29 Dose: 50 mls/hr Documented by: [id number] Admin: 07/08/20 18:24 Dose: 50 mls/hr Documented by: [id number] Insulin Aspart (Insulin Aspart 100 Units/Ml 3 Ml Pen) 0 units SC ACHS [facility] Stop: 08/07/20 21:29 Last Admin: 07/10/20 12:31 Dose: Not Given Documented by: [id number] Admin: 07/10/20 08:43 Dose: Not Given Documented by: [id number] Admin: 07/09/20 22:19 Dose: Not Given Documented by: [id number] Admin: 07/09/20 17:06 Dose: Not Given Documented by: [id number] Admin: 07/09/20 11:53 Dose: Not Given Documented by: [id number] Admin: 07/09/20 07:56 Dose: 1 units Documented by: [id number] Cosigned by: [id number] Admin: 07/08/20 21:50 Dose: Not Given Documented by: [id number] Cosigned by: [id number] Lidocaine HCl (Lidocaine Hcl 1% 20 Ml Vial) Confirm Administered Dose 20 ml .ROUTE .STK-MED ONE Stop: 07/10/20 08:50 Last Admin: 07/10/20 11:08 Dose: Not Given Documented by: [id number] Medical Decision Making Differential Diagnosis Vasovagal event, dehydration, infection, hypoglycemia, electrolyte abnormalities, cardiac sources, intracerebral event, pulmonary embolism, seizure, toxicologic, neurologic, as well as other pathologies. Medical Records Attestation: I reviewed the patient's medical records. Home Medications Current Medication List: was personally reviewed by me Laboratory Data Attestation: I reviewed the patient's lab results. Result diagrams: 07/10/20 06:46 07/10/20 06:46 Lab Results 07/08/20 07/08/20 07/08/20 Range/Units 15:40 15:40 15:40 WBC 11.00 H (4.8-10.8) K/uL RBC 4.01 L (4.2-5.4) M/uL Hgb 12.1 (12.0-16.0) g/dL Hct 36.8 L (37-47) % MCV 91.8 (80-100) fL MCH 30.2 (25-34) pg MCHC 32.9 (32-36) g/dL RDW Std Deviation 48.9 H (36.4-46.3) fL RDW Coeff of Valerie 14.5 (11.5-14.5) % Plt Count 290 (130-400) K/uL MPV 11.7 H (7.4-10.4) fL Immature Gran % (Auto) 0.1 % Neut % (Auto) 59.8 % Lymph % (Auto) 31.3 % [place] % (Auto) 6.6 % Eos % (Auto) 1.7 % Baso % (Auto) 0.5 % Neut # (Auto) 6.57 H (1.4-6.5) K/uL Lymph # (Auto) 3.44 H (1.2-3.4) K/uL [place] # (Auto) 0.73 H (0.11-0.59) K/uL Eos # (Auto) 0.19 (0-0.5) K/uL Baso # (Auto) 0.06 (0-0.2) K/uL Immature Gran # (Auto) 0.01 (0.00-0.02) K/uL PT 10.3 (9.0-12.0) Seconds INR 1.0 (0.9-1.1) APTT 20.9 L (21.0-31.0) Seconds PTT Ratio 0.8 Sodium 140 (136-145) mmol/L Potassium 4.2 (3.5-5.1) mmol/L Chloride 106 (98-107) mmol/L Carbon Dioxide 26 (21-32) mmol/L Anion Gap 8.0 (3-11) BUN 21 H (7-18) mg/dl Creatinine 1.52 H (0.6-1.2) mg/dl Est Cr Clr Drug Dosing 27.4 ml/min Est GFR ( Amer) 37.7 Est GFR (Non-Af Amer) 32.5 BUN/Creatinine Ratio 13.7 (10-20) Glucose 88 (70-99) mg/dl Calcium 9.1 (8.5-10.1) mg/dl Phosphorus 3.1 (2.5-4.9) mg/dl Magnesium 1.8 (1.8-2.4) mg/dl Total Bilirubin 0.3 (0.2-1) mg/dl AST 15 (15-37) U/L ALT 13 (12-78) U/L Alkaline Phosphatase 55 (45-117) U/L Troponin I < 0.015 (0-0.045) ng/ml Total Protein 7.0 (6.4-8.2) gm/dl Albumin 3.4 (3.4-5.0) gm/dl Globulin 3.6 (2.5-4.0) gm/dl Albumin/Globulin Ratio 0.9 (0.9-2) TSH 4.490 (0.300-4.500) uIu/ml Lyme Disease IgG Ab (Negative) Lyme Disease IgM Ab (Negative) COVID-19 Eval Order SARS-CoV-2 (PCR) (Negative) Influenza Type A (PCR) (Neg) Influenza Type B (PCR) (Neg) RSV (RT-PCR) (Neg) 07/08/20 07/08/20 07/08/20 Range/Units 15:40 17:21 17:21 WBC (4.8-10.8) K/uL RBC (4.2-5.4) M/uL Hgb (12.0-16.0) g/dL Hct (37-47) % MCV (80-100) fL MCH (25-34) pg MCHC (32-36) g/dL RDW Std Deviation (36.4-46.3) fL RDW Coeff of Valerie (11.5-14.5) % Plt Count (130-400) K/uL MPV (7.4-10.4) fL Immature Gran % (Auto) % Neut % (Auto) % Lymph % (Auto) % [place] % (Auto) % Eos % (Auto) % Baso % (Auto) % Neut # (Auto) (1.4-6.5) K/uL Lymph # (Auto) (1.2-3.4) K/uL [place] # (Auto) (0.11-0.59) K/uL Eos # (Auto) (0-0.5) K/uL Baso # (Auto) (0-0.2) K/uL Immature Gran # (Auto) (0.00-0.02) K/uL PT (9.0-12.0) Seconds INR (0.9-1.1) APTT (21.0-31.0) Seconds PTT Ratio Sodium (136-145) mmol/L Potassium (3.5-5.1) mmol/L Chloride (98-107) mmol/L Carbon Dioxide (21-32) mmol/L Anion Gap (3-11) BUN (7-18) mg/dl Creatinine (0.6-1.2) mg/dl Est Cr Clr Drug Dosing ml/min Est GFR ( Amer) Est GFR (Non-Af Amer) BUN/Creatinine Ratio (10-20) Glucose (70-99) mg/dl Calcium (8.5-10.1) mg/dl Phosphorus (2.5-4.9) mg/dl Magnesium (1.8-2.4) mg/dl Total Bilirubin (0.2-1) mg/dl AST (15-37) U/L ALT (12-78) U/L Alkaline Phosphatase (45-117) U/L Troponin I (0-0.045) ng/ml Total Protein (6.4-8.2) gm/dl Albumin (3.4-5.0) gm/dl Globulin (2.5-4.0) gm/dl Albumin/Globulin Ratio (0.9-2) TSH (0.300-4.500) uIu/ml Lyme Disease IgG Ab Negative (Negative) Lyme Disease IgM Ab Negative (Negative) COVID-19 Eval Order CovFluRsv at [facility] SARS-CoV-2 (PCR) NEGATIVE (Negative) Influenza Type A (PCR) Negative (Neg) Influenza Type B (PCR) Negative (Neg) RSV (RT-PCR) Negative (Neg) Imaging Data Radiologist's Impression: Chest X-Ray 07/08/20 16:15 SINGLE VIEW CHEST CLINICAL HISTORY: Dysrhythmia. FINDINGS: An AP, portable, upright chest radiograph is compared to study dated 08/15/2019. The heart is enlarged noting atherosclerotic calcification of the thoracic aorta. The pulmonary vasculature is noncongested. Mild atelectasis is noted at the lung bases. The lungs and pleural spaces are otherwise clear. No pneumothorax is seen. The skeletal structures are osteopenic. The bony thorax is grossly intact. IMPRESSION: Cardiomegaly with no active disease in the chest. ACT 112: Negative or not required by law. Electronically signed by: Inocencio Jessica M.D. 07/08/2020 4:59 PM ECG Data Attestation: I personally reviewed and interpreted this ECG as follows: Indication: + syncope Rate (beats per minute): 66 Rhythm: + sinus rhythm and + other (Bigeminy) ECG Intervals/blocks: + Normal QT-c ECG Loco: + Normal ECG ST segments: + Normal ST segments ECG Findings: + PVCs Blood Pressure Blood Pressure Findings: Elevated blood pressure Blood Pressure Disposition: further management by hospitalist PRISCA Narrative This patient was evaluated and appeared to be in no significant distress. Patient was hydrated gently with IV fluid. An order for cardiac monitoring was placed and the patient is noted to be in a sinus rhythm at 74 bpm in a bigeminy pattern. Patient's laboratory work is fairly reassuring. Previous records were reviewed and reveal a very similar presentation. Patient did have some short runs of a tachy arrhythmia that appeared to be supraventricular in nature. There is a possibility that the patient has had nonsustained runs of V. tach causing the syncope nonetheless the patient will require evaluation by cardiology and should be further evaluated by the hospitalist for the unprovoked syncopal episode. Patient and family were made aware of the findings and agree with the plan. The hospitalist service was consulted for further management. Impression & Plan Frequent PVCs, Syncope Discharge Plan Visit Data Chief Complaint: Bradycardia Stated Complaint: BRADYCARDIA ED Provider: Yael Roberson Discharge Problem: Frequent PVCs, Syncope Patient Disposition: Admitted As Inpatient Discharge Instructions Interventions: ED Discharge Assessment Last Done: 07/08/20 20:35 Discharge Problem: Syncope Qualifiers: Syncope type: unspecified Qualified Code(s): R55 - Syncope and collapse
[2020-07-08] MEDS ORDERED: GLUCAGON FOR INJ 1 MG VIAL SQ PRN (21:30)
[2020-07-08] MEDS ORDERED: GLUCOSE 10 TABS/TUBE PO PRN (21:30)
[2020-07-08] MEDS ORDERED: ACETAMINOPHEN 325 MG TAB PO PRN (21:30)
[2020-07-08] MEDS ORDERED: POLYETHYLENE (MIRALAX) 17 GM PACK PO PRN (21:30)
[2020-07-08] MEDS ORDERED: ONDANSETRON INJ 2 MG/ML 2 ML VIAL IV PRN (21:30)
[2020-07-08] MEDS ORDERED: GLUCOSE 40% GEL 15 GM TUBE PO PRN (21:30)
[2020-07-08] MEDS ORDERED: CARBOHYDRATES FOR HYPOGLYCEMIA PO PRN (21:30)
[2020-07-08] MEDS ORDERED: DEXTROSE 50% 50 ML SYRINGE IV PRN (21:30)
[2020-07-08] MEDS: INSULIN ASPART 100 UNITS/ML 3 ML PEN SC SCH (21:50)
[2020-07-08 22:12] LABS: Appearance Urine Clear (Clear); Bilirubin Urine Negative (Negative); Blood Urine Negative (Negative); Color Urine Yellow; Glucose Urine UA Negative (Negative); Ketones Urine Negative (Negative); Leukocyte Esterase Urine Negative (Negative); Nitrite Urine Negative (Negative); Protein Urine Negative (Negative); Specific Gravity Urine 1.011 (1.000-1.030); Urobilinogen Urine Negative (Negative)
[2020-07-08 22:30] LABS: Creatinine Urine Random 49.7 mg/dl
[2020-07-08] MEDS: HEPARIN SOD 5,000 UNIT/0.5 ML VIAL SQ SCH (22:59)
[2020-07-09] MEDS: SODIUM CHLORIDE 0.9% 1000ML 1,000 ML IV SCH ×2 (01:59→07:54)
[2020-07-09] MEDS: HEPARIN SOD 5,000 UNIT/0.5 ML VIAL SQ SCH ×3 (05:29→22:19)
[2020-07-09 06:22] LABS: Basophils # (auto) 0.05 K/uL (0-0.2); Basophils % (auto) 0.5 %; Eosinophils # (auto) 0.15 K/uL (0-0.5); Eosinophils % (auto) 1.5 %; Hematocrit (blood only) 34.4 % (37-47); Hemoglobin 11.3 g/dL (12.0-16.0); Immature Granulocytes # (auto) 0.03 K/uL (0.00-0.02); Immature Granulocytes % (auto) 0.3 %; Lymphocytes # (auto) 3.31 K/uL (1.2-3.4); Lymphocytes % (auto) 33.1 %; Mean Corpuscular Hemoglobin 30.1 pg (25-34); Mean Corpuscular Hgb Conc 32.8 g/dL (32-36); Mean Corpuscular Volume 91.7 fL (80-100); Monocytes # (auto) 0.63 K/uL (0.11-0.59); Monocytes % (auto) 6.3 %; Neutrophils # (auto) 5.84 K/uL (1.4-6.5); Neutrophils % (auto) 58.3 %; Platelet Count 281 K/uL (130-400); RDW Coefficient of Variation 14.7 % (11.5-14.5); RDW Standard Deviation 49.2 fL (36.4-46.3); Red Blood Count 3.75 M/uL (4.2-5.4); White Blood Count 10.01 K/uL (4.8-10.8)
[2020-07-09 06:56] LABS: BUN Creatinine Ratio 13.3 (10-20); Calcium 8.4 mg/dl (8.5-10.1); Creatinine Clr Calc Pharmacy 34.4 ml/min; Est GFR (African American) 50.6; Est GFR (Non-African American) 43.7; Magnesium 2.1 mg/dl (1.8-2.4); Potassium 3.8 mmol/L (3.5-5.1)
[2020-07-09] MEDS: INSULIN ASPART 100 UNITS/ML 3 ML PEN SC SCH ×4 (07:56→22:19)
[2020-07-09] MEDS: CYANOCOBALAMIN 500 MCG TABLET (VITAMIN B-12) PO SCH (07:57)
[2020-07-09] MEDS: ASPIRIN 81 MG ECTAB PO SCH (07:57)
--- NOTE | 2020-07-09 11:20 | Cardiology Consultation ---
Date of Consultation July 09, 2020 Assessment & Plan (1) Pre-syncope: Her episode yesterday appeared vasovagal in nature as her lightheadedness/near syncope was accompanied by nausea, vomiting, and diaphoresis. She also felt very tired and fatigued afterwards. Her heart rate was reportedly low in the 30s when symptomatic, however, given her frequent PVCs, the low heart rate could have just been secondary to pulse deficit. There has been no documented arrhythmia which would warrant a pacemaker. At this point, would recommend long-term monitoring such as a loop recorder. Would also recommend reducing her carvedilol dose to 6.[address] Peterson will be in to see the patient later today and will discuss possible loop recorder insertion with her. (2) Ventricular bigeminy: She has a history of frequent PVCs, which were documented during her last admission in August 2019 as well. She is asymptomatic. Echocardiogram preliminarily shows preserved LV systolic function. Given her event yesterday, would recommend reducing her beta medardo dose, as noted above. (3) CAD (coronary artery disease): She has no current symptoms to suggest coronary insufficiency or angina. Continue aspirin therapy given prior PCI. Continue beta medardo therapy as tolerated. Patient was discussed with Dr. Peterson who will also be in to see the patient today. Supervising Physician Co-Signing Physician Notes Patient was seen and examined today. Agree with note as outlined by Clau, with the following additions: This is her third such event in the past 1 year since August of 2019 where she developed lightheadedness, near-syncope with nausea, vomiting, and diaphoresis. She was seen by Dr. Trejo in December of 2019. It was felt that her symptoms were more consistent with increased vagal tone. She denies chest pain, shortness of breath, true syncope, or edema. When she was seen shortly after noon today, she was back to baseline. She states that in between these 3 episodes from August 2019, December 2019, and June of 2020, she did not have any significant lightheadedness or near-syncope. Her primary adult education professional recently retired with [employer] [facility] but she is scheduled to establish care with a new adult education professional in the same group in August of 2020. Exam notable for: General: No acute distress neck: No JVD. No bruit. cardiac: Regular with ectopy. lungs: Clear to auscultation bilaterally. extremities: No significant pitting edema. No cyanosis. 2+ radial pulses bilaterally. Echo 07/09/2020 demonstrated normal LV size, wall motion, systolic function. EF 60-65%. Mildly dilated RV with normal systolic function. Severe biatrial dilation. Mild MR. RVSP 22. Telemetry personally reviewed: Sinus rhythm with short atrial runs. PVCs. Blocked P waves, that occurred during T-wave of PVCs. ECGs personally reviewed: ECG 07/09/2020 at 5:39 a.m.: Sinus bradycardia with frequent PVCs. 56 bpm. ECG 07/08/2020 at 4:07 p.m.: Sinus rhythm with PVCs in bigeminal pattern. 66 bpm. ASSESSMENT/PLAN: 1. Near-syncope: Based on her description, her presentation is consistent with increased vagal tone. This is her third such event in less than 1 year. Given evidence of sinus bradycardia, can reduce carvedilol to 6.25 mg twice daily for now. Recommend loop recorder to evaluate for arrhythmia, pause, heart block, or other electrical disturbance that could cause her symptoms. 2. PVCs: Not likely playing a role in her presentation. PVCs in a bigeminal pattern may be responsible for her recorded pulse of 30s pre hospital, due to pulse deficit. Loop recorder ordered as above for further evaluation. 3. CAD s/p prior PCI: No angina. Continue anti-platelet therapy and beta- medardo as tolerated. recommend high-intensity statin therapy if no contraindication. 4. Disposition: Patient care discussed with shot polisher and inspector, Dr. Trejo, who has followed her before while hospitalized here. He was agreeable for loop recorder tomorrow. Patient care communicated with primary hospitalist, Dr. Park. History of Present Illness Reason for Consultation: Arrhythmia Requesting Physician: Dr. Donaldson History of Present Illness Mrs. Vicente is a 79-year-old female with a past medical history significant for coronary artery disease s/p PCI, frequent PVCs, type 2 diabetes, and anemia who was admitted yesterday with near-syncope. She reports that yesterday afternoon around 2 pm, she was sitting doing a word search. She then suddenly felt lightheaded, diaphoretic, and nauseous. She then began vomiting. She felt as though she was going to pass out better never actually lost consciousness. Her called her daughter who came over and checked her pulse radially as well as with a pulse oximeter. Her heart rate was reportedly low in the 30s. EMS was called, and they also reportedly noted a low pulse rate. She states that her symptoms lasted about an hour in duration, and she felt very tired afterwards. She was admitted in August 2019 for a similar episode, and at that time, the episode was felt to be secondary to high vagal tone. She is currently resting comfortably in bed. She states that aside from the episode yesterday and in August 2019, she may have had one other similar episode in November 2018, but she did not seek medical attention at that time. She has not had an actual syncopal event. She denies palpitations. She denies chest pain or shortness of breath. She has not noted any lower extremity edema. She denies abnormal bleeding such as melena, hematochezia, or hematuria. She is otherwise asymptomatic. Family history: Noncontributory given her advanced age and known CAD. Social history: She is with a son, daughter, and numerous grandchildren. She also had a daughter who . She denies smoking or alcohol use. Allergies Allergy/AdvReac Type Severity Reaction Status Date / Time No Known Allergies Allergy Unverified 07/08/20 16:54 Home Medications Medication Instructions Recorded Confirmed Type carvedilol 12.5 mg PO BID 08/15/19 07/08/20 History metformin 1,000 mg PO BID 08/15/19 07/08/20 History aspirin [Aspirin Low Dose] 81 mg PO QAM 07/08/20 07/08/20 History cyanocobalamin (vitamin B-12) 1,000 mcg SUBLINGUAL DAILY 07/08/20 07/08/20 History [Vitamin B-12] Patient History Medical History (Updated 07/09/20 @ 11:35 by Essence Olguin PA-C) CAD (coronary artery disease) DM w/o complication type II Right leg DVT 03/2019 - treated 3 months with eliquis (provoked by arthroscopic knee surgery) Surgical History H/O arthroscopy of right knee H/O: hysterectomy History of coronary artery stent placement 5 stents S/P appendectomy S/P laparoscopic cholecystectomy Family History Daughter , age 57 Coronary heart disease Congestive heart failure Father , age 71 Heart disease Mother , age 77 Heart disease Diabetes Social History Smoking Status: Never smoker Hx Alcohol Use: No Hx Substance Use: No Preferred Language: Thai Communication Ability: Effective Division Director Required: No Beliefs That Will Affect Care: None marital status: Current Living Situation: Spouse current occupational status: retired current occupation: worked in [employer] nearly 40 years Other Information That Helps Us Care for You: No other: 3 children; 1 recently (daughter) Feels Safe at Home: Yes Assistive Devices: None Review of Systems Review of Systems: All systems reviewed & are unremarkable except as noted in Subjective Physical Exam Physical Exam: Constitutional: Alert, oriented, in no acute distress HEENT: Head is atraumatic and normocephalic. EOMs intact. Sclera non-icteric. Face is symmetric. No perioral cyanosis. Mucous membranes moist Neck: Supple, no JVD Pulmonary: Normal respiratory effort, clear to auscultation throughout Cardiac: Regular with frequent ectopy in a bigeminy pattern, normal S1 and S2, no gallops, no rubs, no murmurs Extremities: No edema. No clubbing or cyanosis. 2+ radial pulses bilaterally Abdomen: Normal bowel sounds, soft, non-tender, no abdominal masses palpated Skin: Normal skin color, turgor, and pigmentation. No rash or skin lesions Neurological: Oriented to person, place, and time Results & Data ([facility]) Vital Signs (Past 12 Hours) Vital Signs Temp Pulse Pulse Resp BP BP Pulse Ox 07/09/20 07:06 98.1 F 57 L 18 140/58 L 96 07/09/20 04:18 54 L 07/09/20 04:16 97.3 F L 34 L 18 136/67 97 07/09/20 00:06 67 07/08/20 23:16 97.9 F 59 L 20 154/61 H 99 Diagnostic Findings ECG 07/08/20: Sinus rhythm with frequent PVCs in a pattern of bigeminy. 66 bpm. ECG 07/09/20: Sinus bradycardia with frequent PVCs with blocked P waves. 56 bpm. Telemetry monitoring: Sinus rhythm with frequent PVCs, often times in a pattern of bigeminy. Blocked P waves at times. Rate is primarily in the 50s. Echo preliminarily shows preserved LV systolic function with no significant valvular abnormality. PG Care Time/CCT Total # of Minutes Spent Total Time Spent with Patient: Total time spent is greater than 50% in coordination of care (as documented) at patient's floor/unit and/or counseling patient: Coding Level of Care Code 83623 Initial Inpt Care Lvl 3 Diagnoses Pre-syncope R55 Ventricular bigeminy I49.9 CAD (coronary artery disease) I25.10 Associated angina: without angina Coronary Disease-Associated Artery/Lesion type: [place] artery [place] vs. transplanted heart: [place] heart (1) CAD (coronary artery disease) Associated angina: without angina Coronary Disease-Associated Artery/Lesion type: [place] artery [place] vs. transplanted heart: [place] heart Qualified Code(s): I25.10 - Atherosclerotic heart disease of [place] coronary artery without angina pectoris
--- NOTE | 2020-07-09 12:06 | XCELERA ---
[id number]
--- NOTE | 2020-07-09 12:56 | Hospitalist Progress Note ---
Date of Service July 09, 2020 Assessment & Plan (1) Arrhythmia: with associated presyncope. Not currently symptomatic off carvedilol with current bradycardia suggesting run of NSVT or more significant bradycardia causing event yesterday. - TTE - severe biatrial dilation, otherwise normal - Serial troponin negative - TSH normal - Lyme negative Ab negative - Cardiology attending consult pending - considering loop recorder (2) CAD (coronary artery disease): Stents as per HPI- patient has her stent cards with her - Continue ASA - Hold Carvedilol - Not on statin (3) History of coronary artery stent placement: As above - no acute concerns at this time (4) DM w/o complication type II: On metformin as outpatient - Hold while inpatient - Novolog sliding scale- correction factor 40, no carb coverage (5) BRENNAN (acute kidney injury): Resolved overnight with IV hydration - Appears pre-renal - FeNa 2.0% (6) DVT prophylaxis: SCDs, ambulation, heparin 5000 SQ TID CODE: FULL Diet: T2DM Admission and Anticipated Discharge Date Admission Date: July 08, 2020 Subjective Feeling well this morning. No repeat of her symptoms that brought her in overnight. Telemetry reviewed with frequent bigeminy and possible p waves following bigeminy with dropped QRS. Review of Systems Review of Systems: All systems reviewed & are unremarkable except as noted in HPI & below Physical Exam Constitutional: WD/WN, vitals as above Eyes: + anicteric sclerae; normal pupil size ENMT: external ear and nose normal, oropharynx normal Respiratory: normal respiratory effort, lungs clear to auscultation Cardiovascular: Rate/Rhythm: + bradycardic and + irregularly irregular Heart Sounds: no murmur Vessels: no JVD Extremities: normal capillary refill Gastrointestinal (Abdomen): normal bowel sounds, soft, nontender, no hepatosplenomegaly Musculoskeletal: no cyanosis or clubbing, extremities motor strength 5/5 Skin: no rashes, warm and dry Neurologic: moves all extremities and awake; not confused Psychiatric: A+Ox3, euthymic affect Results & Data Results & Data ([facility]) Vital Signs (Past 12 Hours) Vital Signs Temp Pulse Resp BP BP Pulse Ox 07/09/20 11:17 36.7 C 90 18 95/53 L 98 07/09/20 07:06 36.7 C 57 L 18 140/58 L 96 07/09/20 04:18 54 L 07/09/20 04:16 36.3 C L 34 L 18 136/67 97 ECG Indication: other (pre-syncope) Rate (beats per minute): 56 Rhythm: sinus bradycardia Findings: + PVC Comparison ECG Date: from (July 08, 2020) Change: no significant change PG Care Time/CCT Total # of Minutes Spent Total Time Spent with Patient: Total time spent is greater than 50% in coordination of care (as documented) at patient's floor/unit and/or counseling patient: Coding Level of Care Code 29781 Subseq Hosp Care Lvl 2 Diagnoses Arrhythmia I49.8 Arrhythmia type: other cardiac arrhythmia CAD (coronary artery disease) I25.10 Associated angina: without angina Coronary Disease-Associated Artery/Lesion type: three [place] artery [place] vs. transplanted heart: three affiliated heart History of coronary artery stent placement Z95.5 DM w/o complication type II E11.9 Diabetes mellitus director long term care insulin use: without care home use BRENNAN (acute kidney injury) N17.9 DVT prophylaxis Z29.9 (1) DM w/o complication type II Diabetes mellitus director long term care insulin use: without care home use Qualified Code(s): E11.9 - Type 2 diabetes mellitus without complications (2) CAD (coronary artery disease) Associated angina: without angina Coronary Disease-Associated Artery/Lesion type: three affiliated artery [place] vs. transplanted heart: three affiliated heart Qualified Code(s): I25.10 - Atherosclerotic heart disease of three affiliated coronary artery without angina pectoris (3) Arrhythmia Arrhythmia type: other cardiac arrhythmia Qualified Code(s): I49.8 - Other specified cardiac arrhythmias
[2020-07-09] MEDS: carvediloL 6.25 MG TAB PO SCH (22:39)
--- NOTE | 2020-07-09 22:57 | Electrocardiogram Report ---
Test Reason : Blood Pressure : / mmHG Vent. Rate : 066 BPM Atrial Rate : 066 BPM P-R Int : 168 ms QRS Dur : 084 ms QT Int : 408 ms P-R-T Axes : -24 020 047 degrees QTc Int : 427 ms Sinus rhythm with frequent Premature ventricular complexes in a pattern of bigeminy Otherwise normal ECG When compared with ECG of 16-AUG-2019 06:35, No significant change was found Confirmed by Teodoro Peterson ([id number]) on 07/09/2020 10:56:48 PM Referred By: REFERRED SELF Confirmed By:Teodoro Peterson
--- NOTE | 2020-07-10 06:01 | Electrocardiogram Report ---
Test Reason : Blood Pressure : / mmHG Vent. Rate : 056 BPM Atrial Rate : 056 BPM P-R Int : 192 ms QRS Dur : 092 ms QT Int : 468 ms P-R-T Axes : 034 028 039 degrees QTc Int : 451 ms Sinus bradycardia with frequent Premature ventricular complexes Otherwise normal ECG When compared with ECG of 08-JUL-2020 16:07, No significant change was found Confirmed by Teodoro Peterson ([id number]) on 07/10/2020 6:01:21 AM Referred By: REFERRED SELF Confirmed By:Teodoro Peterson
[2020-07-10] MEDS: HEPARIN SOD 5,000 UNIT/0.5 ML VIAL SQ SCH (06:05)
[2020-07-10 07:03] LABS: Basophils # (auto) 0.09 K/uL (0-0.2); Eosinophils # (auto) 0.19 K/uL (0-0.5); Eosinophils % (auto) 2.1 %; Hematocrit (blood only) 36.5 % (37-47); Hemoglobin 12.1 g/dL (12.0-16.0); Immature Granulocytes # (auto) 0.02 K/uL (0.00-0.02); Immature Granulocytes % (auto) 0.2 %; Lymphocytes # (auto) 3.14 K/uL (1.2-3.4); Mean Corpuscular Hemoglobin 30.6 pg (25-34); Mean Corpuscular Hgb Conc 33.2 g/dL (32-36); Mean Corpuscular Volume 92.2 fL (80-100); Mean Platelet Volume 11.1 fL (7.4-10.4); Monocytes # (auto) 0.44 K/uL (0.11-0.59); Monocytes % (auto) 4.8 %; Neutrophils # (auto) 5.36 K/uL (1.4-6.5); Neutrophils % (auto) 57.9 %; Platelet Count 311 K/uL (130-400); RDW Coefficient of Variation 14.6 % (11.5-14.5); RDW Standard Deviation 49.8 fL (36.4-46.3); Red Blood Count 3.96 M/uL (4.2-5.4); White Blood Count 9.24 K/uL (4.8-10.8)
[2020-07-10 07:43] LABS: BUN Creatinine Ratio 16.1 (10-20); Calcium 8.4 mg/dl (8.5-10.1); Creatinine Clr Calc Pharmacy 31.3 ml/min; Est GFR (African American) 45.1; Est GFR (Non-African American) 38.9; Magnesium 1.9 mg/dl (1.8-2.4); Potassium 4.2 mmol/L (3.5-5.1)
[2020-07-10] MEDS: INSULIN ASPART 100 UNITS/ML 3 ML PEN SC SCH ×2 (08:43→12:31)
[2020-07-10] MEDS: CYANOCOBALAMIN 500 MCG TABLET (VITAMIN B-12) PO SCH (08:45)
[2020-07-10] MEDS: carvediloL 6.25 MG TAB PO SCH (08:45)
[2020-07-10] MEDS: ASPIRIN 81 MG ECTAB PO SCH (08:45)
[2020-07-10] MEDS ORDERED: LIDOCAINE 1% LOCAL 20 ML VIAL ONE (08:49)
--- NOTE | 2020-07-10 10:16 | Electrophysiology Report ---
Date of Service July 10, 2020 Electrophysiology Procedure Electrophysiology Procedure Report The procedure performed: Implantation of patient activated loop recorder Staff laborer shaft sinking: Jamey Trejo MD Indication:The patient is a 71-year-old woman with a history of syncope and i rregularity in her heartbeat. device is being implanted for continuous outpatient monitoring Procedure in detail: The patient was informed of the risks benefits and alternatives to the intended procedure. They understood such and wished to proceed. The patient was taken to the electrophysiology suite where the upper chest area was prepped and draped in the usual sterile fashion. An area left lateral to the sternum in the 4th intercostal space was subsequently anesthetized using subcutaneous administration of lidocaine solution. A small incision was made at this site and implantation of the loop recorder was accomplished using a proprietary implantation tool. The small incision was subsequently closed using a single 4 0 Vicryl suture. Steri-Strips and a sterile dressing were then applied. The patient tolerated the procedure well. There were no immediate complications. The device was tested noninvasively prior to conclusion of the procedure. Equipment used: Patient activated loop recorder: [employer]. Model number LNQ11. Serial number [id number] [employer] Electrophysiology codes Implantable Monitors Procedure 1: Implantable Monitors: [id number] Loop Recorder Implant
--- NOTE | 2020-07-10 10:20 | Cardiology Progress Note ---
Date of Service July 10, 2020 Assessment & Plan (1) Pre-syncope: She has had 2 episodes in just under a year which were similar in character. both of them involved symptoms consistent with high vagal tone. While she was told by the paramedics that her heart rate was low, this was likely artifactual given her known ventricular ectopy. I think there is an unclear association between slow heart rates and her symptoms. Most of the time she has no symptoms associated with her frequent ventricular and atrial ectopy. As such, loop recorder was implanted today. Will continue to monitor her symptoms and recordings on an outpatient basis. I think she would be stable for discharge today. (2) Ventricular bigeminy: No overt symptoms. Normal LV systolic function. Beta-medardo has been stopped. (3) CAD (coronary artery disease): She has no current symptoms to suggest coronary insufficiency or angina. Continue aspirin therapy given prior PCI. Continue beta medardo therapy as tolerated. Admission and Anticipated Discharge Date Admission Date: July 08, 2020 Subjective the patient feels well this morning. She has not had any recurrent symptoms of dizziness or lightheadedness. She has been ambulatory to the bathroom and back without symptoms. No sense of palpitation. Review of Systems Review of Systems: Per HPI Physical Exam Physical Exam: She is alert and oriented x3. Mood affect appear normal. She answered all questions appropriately. HEENT: Sclerae are anicteric. Pupils are equal and reactive to light and accommodation. Extraocular movements were intact. Neuro: Cranial nerves intact Lungs: normal respiratory effort Cardiac: The rhythm was irregular with frequent ectopy. Abdomen: The abdomen was soft and nontender. Extremities: Patient has bilateral radial pulses that are equal in intensity. There is no evidence cyanosis or clubbing. There was no evidence of significant peripheral edema bilaterally. Skin: There are no rashes noted on examination today. Results & Data ([facility]) Vital Signs (Past 12 Hours) Vital Signs Temp Pulse Resp BP Pulse Ox 07/10/20 07:21 36.4 C L 51 L 16 158/62 H 98 07/10/20 04:06 36.4 C L 59 L 18 136/65 96 07/09/20 23:28 36.7 C 62 18 156/58 H 94 Laboratory Results Abnormal Lab Results 07/09/20 07/09/20 07/09/20 11:21 16:14 19:55 WBC RBC Hgb Hct MCV MCH MCHC RDW Std Deviation RDW Coeff of Valerie Plt Count MPV Immature Gran % (Auto) Neut % (Auto) Lymph % (Auto) Lassen % (Auto) Eos % (Auto) Baso % (Auto) Neut # (Auto) Lymph # (Auto) [place]assen # (Auto) Eos # (Auto) Baso # (Auto) Immature Gran # (Auto) Sodium Potassium Chloride Carbon Dioxide Anion Gap BUN Creatinine Est Cr Clr Drug Dosing Est GFR ( Amer) Est GFR (Non-Af Amer) BUN/Creatinine Ratio Glucose POC Glucose 90 91 104 H Calcium Magnesium 07/10/20 07/10/20 07/10/20 06:46 06:46 07:37 WBC 9.24 RBC 3.96 L Hgb 12.1 Hct 36.5 L MCV 92.2 MCH 30.6 MCHC 33.2 RDW Std Deviation 49.8 H RDW Coeff of Valerie 14.6 H Plt Count 311 MPV 11.1 H Immature Gran % (Auto) 0.2 Neut % (Auto) 57.9 Lymph % (Auto) 34.0 Lassen % (Auto) 4.8 Eos % (Auto) 2.1 Baso % (Auto) 1.0 Neut # (Auto) 5.36 Lymph # (Auto) 3.14 Lassen # (Auto) 0.44 Eos # (Auto) 0.19 Baso # (Auto) 0.09 Immature Gran # (Auto) 0.02 Sodium 144 Potassium 4.2 Chloride 111 H Carbon Dioxide 28 Anion Gap 5.0 BUN 21 H Creatinine 1.31 H Est Cr Clr Drug Dosing 31.3 Est GFR ( Amer) 45.1 Est GFR (Non-Af Amer) 38.9 BUN/Creatinine Ratio 16.1 Glucose 93 POC Glucose 89 Calcium 8.4 L Magnesium 1.9 PG Care Time/CCT Total # of Minutes Spent Total Time Spent with Patient: Total time spent is greater than 50% in coordination of care (as documented) at patient's floor/unit and/or counseling patient: Coding Level of Care Code 13478 Subseq Hosp Care Lvl 2 Diagnoses Pre-syncope R55 Ventricular bigeminy I49.9 CAD (coronary artery disease) I25.10 Coronary Disease-Associated Artery/Lesion type: [place] artery [place] vs. transplanted heart: [place] heart Associated angina: without angina (1) CAD (coronary artery disease) Coronary Disease-Associated Artery/Lesion type: [place] artery [place] vs. transplanted heart: [place] heart Associated angina: without angina Qualified Code(s): I25.10 - Atherosclerotic heart disease of [place] coronary artery without angina pectoris
--- NOTE | 2020-07-11 06:21 | Electrocardiogram Report ---
Test Reason : Blood Pressure : / mmHG Vent. Rate : 061 BPM Atrial Rate : 061 BPM P-R Int : 188 ms QRS Dur : 088 ms QT Int : 446 ms P-R-T Axes : 027 027 036 degrees QTc Int : 448 ms Sinus rhythm with frequent Premature ventricular complexes Otherwise normal ECG When compared with ECG of 09-JUL-2020 05:39, No significant change was found Confirmed by Teodoro Peterson ([id number]) on 07/11/2020 6:21:30 AM Referred By: REFERRED SELF Confirmed By:Teodoro Peterson
--- NOTE | 2020-07-29 13:45 | Discharge Summary ---
Date of Service July 10, 2020 Admission HPI Per Admitting Provider 79 YOF with past medical history of CAD without infarctions or CABG. She has stents to LAD, Marginal, Circumflex, She follows with Dr. 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 Patient comes in today as she was sitting on her couch doing a word jumble, and got flushed, dizzy, and nauseated which then progressed to vomiting. She called her daughter who came over and they checked her pulse on pulse oximeter, and it said it was in the 30-40 range and it being irregular. She also seen the number go from 40-70 then back to 50. They called EMS and they also reported 40s. She felt like after she got her nausea under control a few hours ago did she feel better. Patient denies any symptoms of chest discomfort or dyspnea. 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 The patient denies any change in her medications, she was just at the doctor's last week with reported HGB A1C 5.7. She also cut her grass last week and can go up and down steps at her house without any dyspnea or chest pain. Overall well appearing. Telemetry was reviewed with sinus rhythm with which appears premature junctional complexes and scattered PVC's. She will be admitted to PCU with telemetry monitoring, ECHO, cardiology consult, and will hold her Carvedilol tonight. Admission Exam Per Admitting Provider General: awake, alert, no apparent distress Head: Normocephalic, atraumatic ENT: PERRL, EOMI, no pharyngeal exudate, mucous membranes moist Neuro: AAO x 3, speech clear and appropriate, strength intact bilaterally 5/5, sensation intact and equal all extremities and dermatomes, no pronator drift Chest: equal rise and fall of the chest, no accessory muscle use, no heaves or thrills, Clear to auscultation, on room air, Cardiac: Irregular rate and rhythm, telemetry reviewed as above, skin warm dry, cap refill <3 seconds, peripheral pulses +2 no JVD, no murmur, no edema GI: NABS x 4 quadrants, soft, nontender to palpation, no rebound, guarding or tenderness : Spontaneously voiding, no pain, no CVA tenderness, Extremities: Normal inspection, no peripheral edema or erythema, calfs nontender to palpation Psych: Normal mood and affect Skin: no rash or erythema Principal Diagnosis Pre-syncope (fainting episode suspected to be secondary to increased vagal tone vs. arrhythmia) Frequent ectopic beats Discharge Exam Constitutional WD/WN, vitals as above Eyes + anicteric sclerae; normal pupil size ENMT external ear and nose normal, oropharynx normal Respiratory normal respiratory effort, lungs clear to auscultation Cardiovascular Rate/Rhythm: + bradycardic and + irregularly irregular Heart Sounds: no murmur Vessels: no JVD Extremities: normal capillary refill Gastrointestinal (Abdomen) normal bowel sounds, soft, nontender, no hepatosplenomegaly Musculoskeletal no cyanosis or clubbing, extremities motor strength 5/5 Skin no rashes, warm and dry Neurologic moves all extremities and awake; not confused Psychiatric A+Ox3, euthymic affect Discharge Data Allergies Allergy/AdvReac Type Severity Reaction Status Date / Time No Known Allergies Allergy Unverified 07/08/20 16:54 Consultations 07/08/20 17:40 ED Decision to Admit Stat 07/08/20 21:30 Consult Cardiology Routine Procedures Performed Operation Date: 07/10/20 09:00 Actual Procedures p Implant Cardiac Event Recorder - Renny Trejo MD Ordered Studies 07/10/20 06:44 CL Cath Imgs for PACS use only Routine Hospital Course (1) Arrhythmia: Arlene Vicente is a 79 year old female admitted at [facility] from July 08-2020 due to a pre-syncopal event associated with diaphoresis and nausea while sitting at home. She was reviewed by cardiology and no heart block was seen on telemetry and you had no recurrence of your symptoms during your admission. Therefore decision was to place a loop recorder to monitor a possible arrhythmia if you were to have a similar event again. Per cardiology recommend also reducing your carvedilol to 6.25mg twice a day. No routine follow up from this visit is needed. If she has similar episodes she was advised to contact her quarrying manager. (2) CAD (coronary artery disease): (3) History of coronary artery stent placement: (4) DM w/o complication type II: (5) BRENNAN (acute kidney injury): Total Time Total Time Spent Total Time Spent (In Minutes): 25 Total Time Includes: Examination of the Patient, Discharge Planning, Medication Reconciliation and Communication With Other Providers Discharge Plan Discharge Items Patient Disposition: Home - Self-Care Reason For Visit: ARRYTHMIA Discharge Diagnosis: Pre-syncope (fainting episode suspected to be secondary to increased vagal tone vs. 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 You were reviewed by cardiology and no heart block was seen on telemetry and you had no recurrence of your symptoms during your admission. Therefore decision was to place a loop recorder to monitor a possible arrhythmia if you were to have a similar event again. Per cardiology recommend also reducing your carvedilol to 6.25mg twice a day. No routine follow up from this visit is needed. If you have similar episodes please contact your quarrying manager. Kind regards, Dr Vladimir Park Pending Studies at Discharge: No Stand-Alone Forms: My [facility], Smoking Cessation Medications and DC Order Prescriptions: Continued metformin 1,000 mg tablet 1,000 mg PO BID RF: 0 aspirin [Aspirin Low Dose] 81 mg Tablet,Delayed Release (Dr/Ec) 81 mg PO QAM RF: 0 cyanocobalamin (vitamin B-12) 1,000 mcg Tablet, Sublingual 1,000 mcg SUBLINGUAL DAILY RF: 0 Changed carvedilol 12.5 mg tablet 6.25 mg PO BID Qty: 0 RF: 0 Discharge Orders: Discharge Order (Routine); Ordered 07/10/20 Ordered By: Vladimir Park Admission Data Admit Date/Time: 07/08/20 19:47 Attending Provider: Vladimir Park Admit Provider: Segundo Riojas Primary Care Provider: Marlin Rowe Other Providers: Segundo Riojas ; Maynor Rm Other Interventions: Discharge Summary Assessment (RN) Last Done: 07/10/20 13:55 Coding Level of Care Code D/C Day Management <30 mins Diagnoses Arrhythmia I49.8 Arrhythmia type: other cardiac arrhythmia CAD (coronary artery disease) I25.10 Associated angina: without angina Coronary Disease-Associated Artery/Lesion type: [place] artery [place] vs. 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
== END 2020-07-10 14:14 | disposition home or self-care (01) ==
LOC: ED 15:59 → SUATTDRO 19:47 → INTOOBSV 19:47 → 2S 19:47 → 2N 07-09 17:44

== ENCOUNTER 2021-04-11 12:01 | Observation (INO) ==
[2021-04-11] MEDS ORDERED: SODIUM CHLORIDE 0.9% 1000ML 1,000 ML IV ONE (12:10)
[2021-04-11] MEDS ORDERED: FAMOTIDINE 20MG IV PUSH 20 MG/5 ML SYR IV STA (12:10)
[2021-04-11] MEDS ORDERED: ONDANSETRON INJ 2 MG/ML 2 ML VIAL IV STA (12:10)
[2021-04-11 12:27] LABS: Basophils # (auto) 0.07 K/uL (0-0.2); Basophils % (auto) 0.6 %; Eosinophils # (auto) 0.14 K/uL (0-0.5); Eosinophils % (auto) 1.3 %; Hematocrit (blood only) 40.3 % (37-47); Hemoglobin 13.2 g/dL (12.0-16.0); Immature Granulocytes # (auto) 0.03 K/uL (0.00-0.02); Immature Granulocytes % (auto) 0.3 %; Lymphocytes # (auto) 2.34 K/uL (1.2-3.4); Lymphocytes % (auto) 21.2 %; Mean Corpuscular Hemoglobin 30.4 pg (25-34); Mean Corpuscular Hgb Conc 32.8 g/dL (32-36); Mean Corpuscular Volume 92.9 fL (80-100); Monocytes # (auto) 0.55 K/uL (0.11-0.59); Neutrophils # (auto) 7.93 K/uL (1.4-6.5); Neutrophils % (auto) 71.6 %; Platelet Count 324 K/uL (130-400); RDW Coefficient of Variation 14.1 % (11.5-14.5); RDW Standard Deviation 47.7 fL (36.4-46.3); Red Blood Count 4.34 M/uL (4.2-5.4); White Blood Count 11.06 K/uL (4.8-10.8)
--- NOTE | 2021-04-11 12:35 | XRay Report ---
XR chest 1V portable HISTORY: Atypical Chest Pain COMPARISON: Chest 07/08/2020. FINDINGS: No pneumothorax. No pleural effusions. The lungs are clear. The cardiac silhouette remains mildly enlarged. No acute rib fractures identified. IMPRESSION: No significant change compared to the prior study. No acute process. ACT 112: Negative or not required by law. Electronically signed by: Carl Ellis M.D. 04/11/2021 12:34 PM
--- NOTE | 2021-04-11 12:38 | Emergency Department Note ---
Impression & Plan Near syncope, Ventricular bigeminy, Nausea and vomiting, Renal insufficiency ED Provider Note NAME: RENATO ALICIA AGE: 80 SEX: F ARRIVES VIA: Ambulance INFORMANT: Patient ED PROVIDER(S): Lexx Retana MD CHIEF COMPLAINT: Near syncope, n/v. PLAN: Disposition: Admit MEDICAL DECISION MAKING: The patient is a pleasant 80-year-old woman with a past medical history of CAD, history of PCI, hypertension, diabetes who presents to the emergency department company by her family for evaluation of near syncope/dizziness with nausea and vomiting that began shortly after eating lunch. The patient reports she had a similar episode approximately a year ago where there was suspicion of heart arrhythmia and had since had a loop recorder implanted. She has had episodes of lightheadedness since then but this is the first severe episode as she has had before. Per family members at the bedside they were checking her heart rates during this time where she was symptomatic today and noted heart rates ranging from the 30s to the 100s. At this time the patient feels slight lightheadedness and nausea but this is improved from prior. She denies any recent fevers, chills, cough, congestion, diarrhea. She is vaccinated for COVID-19 including her booster. She denies any known COVID-19 exposures. On arrival the patient is fatigued appearing but no acute distress, afebrile stable vital signs. She appears clinically dry. She has no focal neurologic deficits. EKG demonstrates sinus rhythm in the 60s with PVCs and pattern of bigeminy. Chest x-ray negative for acute cardiopulmonary process. WBC 11K, nonspecific. H/H and platelets within normal limits. Chemistry without metabolic acidosis. Creatinine 1.5 proximate to prior range of values. Electrolytes and FTs without significant normality. Troponin negative/undetectable. TSH 4.5 with free T4 within normal limits. COVID-19 RNA, CAMRON test was negative. Influenza PCR was negative. CT of the head and CT of the head and neck negative for ICH, ischemia or severe narrowing or occlusion of large vessels. Interrogation was performed of the patient's [employer] loop recorder. Per the [employer] gis mapping technician the patient symptoms today correlated with continued episodes of bigeminy but with question of SVT as well as possible paroxysmal atrial fibrillation with heart rate ranging from the mid 40s to the 150s. Given the patient's near syncope with unclear arrhythmia with question of possible tachybradycardia syndrome reasonable to admit for further management. The patient and her family at bedside in agreement with this. Case was discussed with [place]. [place] [facility] [place], who will evaluate the patient for admission. Further management per admitting team. Triage Nursing notes reviewed and agree them. Prior medical records reviewed Vital Signs: reviewed and remarkable for no significant abnormalities Differential diagnosis: Vasovagal event, dehydration, infection, hypoglycemia, electrolyte abnormalitie s, cardiac sources, intracerebral event, pulmonary embolism, seizure, toxicologic, neurologic, as well as other pathologies. ER treatment provided: See below. Diagnostics interpreted by me: ECG: Sinus rhythm, 64 bpm, PVCs and pattern of bigeminy, no overt ST elevation or depression, QTC 462, QRS 94. Cardiac Monitoring: An order for continuous cardiac monitoring was placed and demonstrated Sinus rhythm, 64 bpm, PVCs and pattern of bigeminy. Laboratory studies: See below Imaging studies: See below Consultation(s): Dr. Smith [facility] [place] HPI: The patient is a pleasant 80-year-old woman with a past medical history of CAD, history of PCI, hypertension, diabetes who presents to the emergency department company by her family for evaluation of near syncope/dizziness with nausea and vomiting that began shortly after eating lunch. The patient reports she had a similar episode approximately a year ago where there was suspicion of heart arrhythmia and had since had a loop recorder implanted. She has had episodes of lightheadedness since then but this is the first severe episode as she has had before. Per family members at the bedside they were checking her heart rates during this time where she was symptomatic today and noted heart rates ranging from the 30s to the 100s. At this time the patient feels slight lightheadedness and nausea but this is improved from prior. She denies any recent fevers, chills, cough, congestion, diarrhea. She is vaccinated for COVID-19 including her booster. She denies any known COVID-19 exposures. ROS: See above HPI for pertinent positives & negatives. A total of 10 systems reviewed and were otherwise negative. PAST MEDICAL HISTORY:See Below PAST SURGICAL HISTORY:See Below FAMILY HISTORY:See Below SOCIAL HISTORY:See Below HOME MEDICATIONS:See Below ALLERGIES:See Below VITALS:See Below PHYSICAL EXAMINATION: GENERAL: Awake, alert, fatigued-appearing, in no distress HENT: Normocephalic, atraumatic. Oropharynx with dry mucous membranes and otherwise unremarkable. EYES: Normal conjunctiva. Sclera non-icteric. EOMI. No nystamgus. PEARRL. NECK: Supple. No nuchal rigidity. FROM. No JVD. RESPIRATORY: Clear to auscultation. CARDIAC: Regular rate, normal rhythm. Extremities warm and well perfused. Pulses equal. ABDOMEN: Soft, non-distended. No tenderness to palpation. No rebound or guarding. No masses. RECTAL: Deferred. MUSCULOSKELETAL: Chest examination reveals no tenderness. The back is s ymmetrical on inspection without obvious abnormality. There is no CVA tenderness to palpation. No joint edema. LOWER EXTREMITIES: Calves are equal size bilaterally and non-tender. No edema. No discoloration. NEURO: Normal sensorium. No sensory or motor deficits noted. 5/5 strength and SILT x 4 extremities. Intact [id number]. SKIN: No rash or jaundice noted. Lexx Retana MD Past Med/Surg History Medical History CAD (coronary artery disease) DM w/o complication type II Frequent PVCs Right leg DVT 03/2019 - treated 3 months with eliquis (provoked by arthroscopic knee surgery) Syncope Ventricular bigeminy Surgical History H/O arthroscopy of right knee H/O: hysterectomy History of coronary artery stent placement 5 stents S/P appendectomy S/P laparoscopic cholecystectomy Family History Daughter , age 57 Coronary heart disease Congestive heart failure Father , age 71 Heart disease Mother , age 77 Heart disease Diabetes Social History Smoking Status: Never smoker Hx Alcohol Use: No Hx Substance Use: No Preferred Language: Lithuanian Communication Ability: Effective Costume Draper Required: No Beliefs That Will Affect Care: None marital status: Current Living Situation: Spouse current occupational status: retired current occupation: worked in [employer] nearly 40 years other: 3 children; 1 recently (daughter) Feels Safe at Home: Yes Assistive Devices: None Allergies Allergies Allergy/AdvReac Type Severity Reaction Status Date / Time No Known Allergies Allergy Unverified 04/11/21 13:16 Home Meds Home Medications Medication Instructions Recorded Confirmed metformin 1,000 mg tablet 1,000 mg PO BID 08/15/19 04/11/21 aspirin 81 mg tablet,delayed 81 mg PO QAM 07/08/20 04/11/21 release (Aspirin Low Dose) cyanocobalamin (vitamin B-12) 1,000 mcg SUBLINGUAL DAILY 07/08/20 04/11/21 1,000 mcg sublingual tablet hydrochlorothiazide 12.5 mg tablet 12.5 mg PO DAILY 11/19/20 04/11/21 Previous Rx's Medication Instructions Recorded carvedilol 12.5 mg tablet 6.25 mg PO BID #0 tab 07/10/20 Results & Data (ED) Vital Signs Vital Signs - 24 hr 04/11/21 12:05 04/11/21 12:50 04/11/21 13:47 Temperature 36.9 C Temperature Source Oral Pulse Rate 81 Pulse Rhythm Irregular Pulse Strength Normal Respiratory Rate 17 Respiratory Effort / Characteristics Non-Labored Spontaneous Respiratory Depth Normal Respiratory Pattern Regular Blood Pressure 152/77 H Blood Pressure Mean 102 Blood Pressure Position Lying Pulse Oximetry 95 94 94 Oxygen Delivery Method Room Air Room Air Room Air Sepsis Recent Fever Within 48 Hours No Sepsis New/Unexplained Change in Mental Status N/A Sepsis Action Taken by Nursing No Action Required Laboratory Data Attestation: I reviewed the patient's lab results. Result diagrams: 04/11/21 12:18 04/11/21 12:18 Lab Results 04/11/21 04/11/21 04/11/21 Range/Units 12:18 12:18 12:18 WBC 11.06 H (4.8-10.8) K/uL RBC 4.34 (4.2-5.4) M/uL Hgb 13.2 (12.0-16.0) g/dL Hct 40.3 (37-47) % MCV 92.9 (80-100) fL MCH 30.4 (25-34) pg MCHC 32.8 (32-36) g/dL RDW Std Deviation 47.7 H (36.4-46.3) fL RDW Coeff of Valerie 14.1 (11.5-14.5) % Plt Count 324 (130-400) K/uL MPV 11.0 H (7.4-10.4) fL Immature Gran % (Auto) 0.3 % Neut % (Auto) 71.6 % Lymph % (Auto) 21.2 % [place] % (Auto) 5.0 % Eos % (Auto) 1.3 % Baso % (Auto) 0.6 % Neut # (Auto) 7.93 H (1.4-6.5) K/uL Lymph # (Auto) 2.34 (1.2-3.4) K/uL [place] # (Auto) 0.55 (0.11-0.59) K/uL Eos # (Auto) 0.14 (0-0.5) K/uL Baso # (Auto) 0.07 (0-0.2) K/uL Immature Gran # (Auto) 0.03 H (0.00-0.02) K/uL Sodium 139 (136-145) mmol/L Potassium 4.0 (3.5-5.1) mmol/L Chloride 104 (98-107) mmol/L Carbon Dioxide 27 (21-32) mmol/L Anion Gap 8 (3-11) BUN 21 (6-23) mg/dl Creatinine 1.53 H (0.6-1.2) mg/dl Est Cr Clr Drug Dosing 28.2 ml/min Est GFR ( Amer) 37.1 ml/min Est GFR (Non-Af Amer) 32.0 ml/min BUN/Creatinine Ratio 13.7 (10-20) Glucose 114 H (70-99(Fasting)) mg/dl Calcium 9.3 (8.5-10.1) mg/dl Phosphorus 3.4 (2.5-4.9) mg/dl Magnesium 1.7 (1.7-2.4) mg/dl Total Bilirubin 0.5 (0.2-1.0) mg/dl AST 19 (13-39) U/L ALT 9 (7-52) U/L Alkaline Phosphatase 48 (34-104) U/L Troponin I < 0.03 (0-0.04) ng/ml Total Protein 7.1 (6.0-8.3) gm/dl Albumin 4.0 (3.4-5.0) gm/dl Globulin 3.1 (2.5-4.0) gm/dl Albumin/Globulin Ratio 1.3 (0.9-2) Lipase 77 (11-82) U/L TSH 4.582 H (0.300-4.500) uIu/ml Free T4 0.76 (0.61-1.60) ng/dl Influ A Molecular Assay (Negative) Influ B Molecular Assay (Negative) SARS-CoV-2, RNA, NAAT (NEGATIVE) 04/11/21 04/11/21 Range/Units 12:45 12:45 WBC (4.8-10.8) K/uL RBC (4.2-5.4) M/uL Hgb (12.0-16.0) g/dL Hct (37-47) % MCV (80-100) fL MCH (25-34) pg MCHC (32-36) g/dL RDW Std Deviation (36.4-46.3) fL RDW Coeff of Valerie (11.5-14.5) % Plt Count (130-400) K/uL MPV (7.4-10.4) fL Immature Gran % (Auto) % Neut % (Auto) % Lymph % (Auto) % [place] % (Auto) % Eos % (Auto) % Baso % (Auto) % Neut # (Auto) (1.4-6.5) K/uL Lymph # (Auto) (1.2-3.4) K/uL [place] # (Auto) (0.11-0.59) K/uL Eos # (Auto) (0-0.5) K/uL Baso # (Auto) (0-0.2) K/uL Immature Gran # (Auto) (0.00-0.02) K/uL Sodium (136-145) mmol/L Potassium (3.5-5.1) mmol/L Chloride (98-107) mmol/L Carbon Dioxide (21-32) mmol/L Anion Gap (3-11) BUN (6-23) mg/dl Creatinine (0.6-1.2) mg/dl Est Cr Clr Drug Dosing ml/min Est GFR ( Amer) ml/min Est GFR (Non-Af Amer) ml/min BUN/Creatinine Ratio (10-20) Glucose (70-99(Fasting)) mg/dl Calcium (8.5-10.1) mg/dl Phosphorus (2.5-4.9) mg/dl Magnesium (1.7-2.4) mg/dl Total Bilirubin (0.2-1.0) mg/dl AST (13-39) U/L ALT (7-52) U/L Alkaline Phosphatase (34-104) U/L Troponin I (0-0.04) ng/ml Total Protein (6.0-8.3) gm/dl Albumin (3.4-5.0) gm/dl Globulin (2.5-4.0) gm/dl Albumin/Globulin Ratio (0.9-2) Lipase (11-82) U/L TSH (0.300-4.500) uIu/ml Free T4 (0.61-1.60) ng/dl Influ A Molecular Assay Negative (Negative) Influ B Molecular Assay Negative (Negative) SARS-CoV-2, RNA, NAAT NEGATIVE (NEGATIVE) Administered Medications Discontinued Medications Sodium Chloride (Nss 1000ml) 1,000 mls @ 999 mls/hr IV .Q1H1M ONE Stop: 04/11/21 13:10 Last Infusion: 04/11/21 13:54 Dose: 0 mls/hr Documented by: [id number] Admin: 04/11/21 12:51 Dose: 999 mls/hr Documented by: [id number] Famotidine (Pepcid 20mg Iv Push) 20 mg in 5 mls @ 2.5 mls/min IV NOW STA Stop: 04/11/21 12:11 Last Admin: 04/11/21 12:51 Dose: 2.5 mls/min Documented by: [id number] Ioversol (Optiray 320 125ml) 119 ml IV ONCE ONE Stop: 04/11/21 14:48 Last Admin: 04/11/21 14:47 Dose: 119 ml Documented by: [id number] Ondansetron HCl (Ondansetron Inj 2 Mg/Ml 2 Ml Vial) 4 mg IV NOW STA Stop: 04/11/21 12:11 Last Admin: 04/11/21 12:51 Dose: 4 mg Documented by: [id number] Imaging Data Radiologist's Impression: Chest X-Ray 04/11/21 12:11 XR chest 1V portable HISTORY: Atypical Chest Pain COMPARISON: Chest 07/08/2020. FINDINGS: No pneumothorax. No pleural effusions. The lungs are clear. The cardiac silhouette remains mildly enlarged. No acute rib fractures identified. IMPRESSION: No significant change compared to the prior study. No acute process. ACT 112: Negative or not required by law. Electronically signed by: Carl Ellis M.D. 04/11/2021 12:[address] 04/11/21 12:20 CT angio head w con, CT head/brain wo con, CT angio neck with con CLINICAL HISTORY: near syncope, n/v TECHNIQUE: Contiguous axial CT images of the head were acquired from the base of the skull to the vertex without intravenous contrast administration. CT angiography of the head and neck was performed following intravenous administration of iodinated contrast. Coronal and sagittal MIPS were obtained from the axial data set and were submitted for review. Automated dose lowering techniques and/or adjustment according to patient size were utilized for this examination. All measurements were calculated based on NASCET criteria. Comparison: None available at the time of this dictation. FINDINGS: CT head: There is no acute intracranial hemorrhage or evidence of acute territorial infarction. No shift of the midline structures, mass effect, or extra-axial abnormalities are shown. Bilateral thyroid nodules measuring up to 2 cm. CTA Neck: A 3 vessel aortic arch is shown. Atherosclerotic plaque is present in the aortic arch and at the origin of the great vessels. The common carotid, external carotid, cervical segments of the internal carotid arteries, and the cervical segments of the vertebral arteries are patent without hemodynamically significant stenosis. The vertebral arteries are codominant. CTA Head: The anterior and posterior cerebral circulations are patent. No hemodynamically significant stenosis, aneurysm, dissection, or arteriovenous malformation is shown. No origin of the left posterior cerebral artery is noted. IMPRESSION: 1. No acute intracranial hemorrhage, evidence of acute territorial infarction, or other acute intracranial disease process. 2. No occlusion, hemodynamically significant stenosis, aneurysm, dissection, or arteriovenous malformation in the major intracranial arteries. 3. No occlusion, hemodynamically significant stenosis, or dissection in the major cervical arteries. 4. Multiple thyroid nodules, if not previously evaluated, nonemergent thyroid ultrasound can be performed. Assessment of stenosis of the internal carotid arteries is based on NASCET criteria. ACT 112: Negative or not required by law. Electronically signed by: fEren Galvez M.D. 04/11/2021 3:05 PM Head CTA 04/11/21 12:20 CT angio head w con, CT head/brain wo con, CT angio neck with con CLINICAL HISTORY: near syncope, n/v TECHNIQUE: Contiguous axial CT images of the head were acquired from the base of the skull to the vertex without intravenous contrast administration. CT angiography of the head and neck was performed following intravenous admin istration of iodinated contrast. Coronal and sagittal MIPS were obtained from the axial data set and were submitted for review. Automated dose lowering techniques and/or adjustment according to patient size were utilized for this examination. All measurements were calculated based on NASCET criteria. Comparison: None available at the time of this dictation. FINDINGS: CT head: There is no acute intracranial hemorrhage or evidence of acute territorial infarction. No shift of the midline structures, mass effect, or extra-axial abnormalities are shown. Bilateral thyroid nodules measuring up to 2 cm. CTA Neck: A 3 vessel aortic arch is shown. Atherosclerotic plaque is present in the aortic arch and at the origin of the great vessels. The common carotid, external carotid, cervical segments of the internal carotid arteries, and the cervical segments of the vertebral arteries are patent without hemodynamically significant stenosis. The vertebral arteries are codominant. CTA Head: The anterior and posterior cerebral circulations are patent. No hemodynamically significant stenosis, aneurysm, dissection, or arteriovenous malformation is shown. No origin of the left posterior cerebral artery is noted. IMPRESSION: 1. No acute intracranial hemorrhage, evidence of acute territorial infarction, or other acute intracranial disease process. 2. No occlusion, hemodynamically significant stenosis, aneurysm, dissection, or arteriovenous malformation in the major intracranial arteries. 3. No occlusion, hemodynamically significant stenosis, or dissection in the major cervical arteries. 4. Multiple thyroid nodules, if not previously evaluated, nonemergent thyroid ultrasound can be performed. Assessment of stenosis of the internal carotid arteries is based on NASCET criteria. ACT 112: Negative or not required by law. Electronically signed by: Efren Galvez M.D. 04/11/2021 3:05 PM Neck CTA 04/11/21 12:20 CT angio head w con, CT head/brain wo con, CT angio neck with con CLINICAL HISTORY: near syncope, n/v TECHNIQUE: Contiguous axial CT images of the head were acquired from the base of the skull to the vertex without intravenous contrast administration. CT angiography of the head and neck was performed following intravenous administration of iodinated contrast. Coronal and sagittal MIPS were obtained from the axial data set and were submitted for review. Automated dose lowering techniques and/or adjustment according to patient size were utilized for this examination. All measurements were calculated based on NASCET criteria. Comparison: None available at the time of this dictation. FINDINGS: CT head: There is no acute intracranial hemorrhage or evidence of acute territorial infarction. No shift of the midline structures, mass effect, or extra-axial abnormalities are shown. Bilateral thyroid nodules measuring up to 2 cm. CTA Neck: A 3 vessel aortic arch is shown. Atherosclerotic plaque is present in the aortic arch and at the origin of the great vessels. The common carotid, external carotid, cervical segments of the internal carotid arteries, and the cervical segments of the vertebral arteries are patent without hemodynamically significant stenosis. The vertebral arteries are codominant. CTA Head: The anterior and posterior cerebral circulations are patent. No hemodynamically significant stenosis, aneurysm, dissection, or arteriovenous malformation is shown. No origin of the left posterior cerebral artery is noted. IMPRESSION: 1. No acute intracranial hemorrhage, evidence of acute territorial infarction, or other acute intracranial disease process. 2. No occlusion, hemodynamically significant stenosis, aneurysm, dissection, or arteriovenous malformation in the major intracranial arteries. 3. No occlusion, hemodynamically significant stenosis, or dissection in the major cervical arteries. 4. Multiple thyroid nodules, if not previously evaluated, nonemergent thyroid ultrasound can be performed. Assessment of stenosis of the internal carotid arteries is based on NASCET criteria. ACT 112: Negative or not required by law. Electronically signed by: Efren Galvez M.D. 04/11/2021 3:05 PM Discharge Plan Visit Data Chief Complaint: Dizziness Stated Complaint: DIZZINESS, NAUSEA, VOMITING ED Provider: Lexx Retana Discharge Problem: Near syncope, Ventricular bigeminy, Nausea and vomiting, Renal insufficiency Forms Stand Alone Forms: My [facility] [employer] Prescriptions Prescriptions: No Action hydrochlorothiazide 12.5 mg tablet 12.5 mg PO DAILY RF: 0 metformin 1,000 mg tablet 1,000 mg PO BID RF: 0 aspirin [Aspirin Low Dose] 81 mg Tablet,Delayed Release (Dr/Ec) 81 mg PO QAM RF: 0 cyanocobalamin (vitamin B-12) 1,000 mcg Tablet, Sublingual 1,000 mcg SUBLINGUAL DAILY RF: 0 carvedilol 12.5 mg tablet 6.25 mg PO BID Qty: 0 RF: 0 Referrals Referrals: Marlin Rowe MD [Primary Care Provider] - Discharge Problem: Nausea and vomiting Qualifiers: Vomiting type: unspecified Qualified Code(s): R11.2 - Nausea with vomiting, unspecified
[2021-04-11 12:52] LABS: Troponin I < 0.03 ng/ml (0-0.04)
[2021-04-11 12:56] LABS: Alanine Aminotransferase 9 U/L (7-52); Albumin Globulin Ratio 1.3 (0.9-2); Alkaline Phosphatase 48 U/L (34-104); Anion Gap 8 (3-11); Aspartate Aminotransferase 19 U/L (13-39); BUN Creatinine Ratio 13.7 (10-20); Bilirubin,Total 0.5 mg/dl (0.2-1.0); Blood Urea Nitrogen 21 mg/dl (6-23); Calcium 9.3 mg/dl (8.5-10.1); Carbon Dioxide 27 mmol/L (21-32); Chloride 104 mmol/L (98-107); Creatinine Clr Calc Pharmacy 28.2 ml/min; Est GFR (African American) 37.1 ml/min; Globulin 3.1 gm/dl (2.5-4.0); Glucose 114 mg/dl (70-99(Fasting)); Lipase 77 U/L (11-82); Magnesium 1.7 mg/dl (1.7-2.4); Phosphorus 3.4 mg/dl (2.5-4.9); Sodium 139 mmol/L (136-145); Total Protein 7.1 gm/dl (6.0-8.3)
[2021-04-11 13:06] LABS: Influenza A virus by PCR Negative (Negative); Influenza B virus by PCR Negative (Negative)
[2021-04-11 13:12] LABS: Thyroid Stimulating Hormone 4.582 uIu/ml (0.300-4.500)
[2021-04-11 14:07] LABS: T4 Free Thyroxine 0.76 ng/dl (0.61-1.60)
[2021-04-11] MEDS ORDERED: OPTIRAY 320 125ml IV ONE (14:47)
--- NOTE | 2021-04-11 15:03 | History & Physical Report ---
Date of Service April 11, 2021 Assessment & Plan (1) Near syncope: Plan: Patient has several year history of near-syncope and syncope with some episodes requiring hospitalization. At that time it was uncertain if her episodes were vagally-mediated or due to arrhythmia. She underwent loop recorder implantation in June 2020. Multiple interrogations are in her chart most of which have shown PVCs, occasional ventricular bigeminy, sinus tach. No a.fib, a.flutter or ventricular tachycardia. Her loop recorder was interrogated today. Verbal report is that she had ventricular bigeminy during the episode? Awaiting the formal report. Due to the uncertainty of whether she had bradycardia will hold her coreg. Check orthostatics. Place on telemetry while hospitalized. NS x 1 liter with repeat labs am. Noted that her CTA head/neck were wnl. CT head negative. Will ask cardiology to see her in the am to interpret her loop recorder report and to determine if she needs any other testing. Doubt PEs - O2 sats wnl; no pulmonary symptoms. Doubt ACS - no chest pain, no ischemic changes on EKG. But will trend troponins to be complete. (2) Ventricular bigeminy: Plan: Cause of her near-syncope? Await loop recorder download. Hold coreg in the event she had bradycardia this am. Had normal echo in 07/20; will repeat to ensure LV function is wnl, etc. Place on telemetry. (3) Multiple thyroid nodules: Plan: Will need nonurgent u/s after discharge. TSH is mildly elevated; could consider synthroid supplementation. Defer for now. (4) CAD (coronary artery disease): Plan: Multiple stents in the past. No recent ischemic symptoms. Continue asa. Holding betablocker - see #1 above. Uncertain why she is not on statin. Will trend her troponins to ensure today's event was not due to ACS. (5) History of coronary artery stent placement: Plan: x 5 - all placed [facility] (6) DM w/o complication type II: Plan: Check HbA1C in am. hold metformin. Novolog sliding scale for meal coverage. (7) Chronic renal failure, stage 3b: Plan: It appears that her baseline CrCl is about 30. Repeat BMP am. (8) DVT prophylaxis: Plan: Heparin 5000 BID (9) Essential hypertension: Plan: Continue HCTZ. No orthostasis on orthostatic checks. Holding coreg until full results of loop recorder interrogation are back. Plan: Family updated at bedside History of Present Illness Chief Complaint: near-syncope Primary Care Provider: Marlin Rowe MD Pleasant 80yo female with history of HTN, T2DM, ventricular bigeminy, CAD, and prior episodes of near-syncope presents with an episode of same at ~10 or 11 o'clock this am. The patient was sitting on her couch watching the [employer] Show when she developed severe dizziness/lightheadedness like "I was going to black out." She did not have any vertigo. She had severe nausea/vomiting and developed profuse diaphoresis. No chest pain, dyspnea, cough, or abdominal pain. She called for her , who in turn called their daughter. Daughter subsequently called 911 and EMS was summoned to her home. EMS report shows that her BSG was >100 at the time of their arrival. The patient has a loop recorder and this was interrogated today by [employer]. Apparently about the time of this episode she had bradycardia with ventricular bigeminy. Patient also mentions she has had 2 other less severe episodes of dizziness over the last week. 1 episode occurred while standing in her kitchen, and the episode resolved with laying down. A 3rd episode occurred while sitting but she could not provide additional details about this latter spell. Of note - patient has been following with Dr Jamey Trejo with [facility] for monitoring of her loop device. The loop was placed several years ago due to episodes of near-syncope similar to what brought her to the hospital today. Past interrogations have shown frequent ectopy (PVCs) and ventricular bigeminy but no ventricular tachycardia, pauses, high-degree AV block, rapid atrial fibrillation, etc. Prior to the episode today the patient has been feeling well otherwise and without chest pain, dyspnea or any restrictions in her daily activities. Allergies Allergy/AdvReac Type Severity Reaction Status Date / Time No Known Allergies Allergy Unverified 04/11/21 13:16 Home Medications Medication Instructions Recorded Confirmed Type metformin 1,000 mg tablet 1,000 mg PO BID 08/15/19 04/11/21 History aspirin 81 mg tablet,delayed 81 mg PO QAM 07/08/20 04/11/21 History release (Aspirin Low Dose) cyanocobalamin (vitamin B-12) 1,000 mcg SUBLINGUAL DAILY 07/08/20 04/11/21 History 1,000 mcg sublingual tablet carvedilol 12.5 mg tablet 6.25 mg PO BID #0 tab 07/10/20 04/11/21 Rx hydrochlorothiazide 12.5 mg tablet 12.5 mg PO DAILY 11/19/20 04/11/21 History Past Med/Surg History Medical History (Updated 04/11/21 @ 18:37 by Vladimir Smith) CAD (coronary artery disease) Previously followed with Dr Lombardi - cardiology in [place]. s/p stents in: 2007 (twice), 2008, 2010, 2018. All @ [facility]. DM w/o complication type II Frequent PVCs Near syncope Right leg DVT 03/2019 - treated 3 months with eliquis (provoked by arthroscopic knee surgery) Status post placement of implantable loop recorder Syncope Ventricular bigeminy Surgical History H/O arthroscopy of right knee H/O: hysterectomy History of coronary artery stent placement 5 stents S/P appendectomy S/P laparoscopic cholecystectomy Family History (Updated 04/11/21 @ 15:43 by Vladimir Smith) Daughter , age 57 Coronary heart disease Congestive heart failure Father , age 71 Heart disease Mother , age 77 Heart disease Diabetes Coronary heart disease s/p CABG Kidney disease ESRD was on dialysis Social History (Updated 04/11/21 @ 15:44 by Vladimir Smith) Smoking Status: Never smoker Hx Alcohol Use: No Hx Substance Use: No Preferred Language: Setswana Communication Ability: Effective Residential Monitor Required: No Beliefs That Will Affect Care: None marital status: Current Living Situation: Spouse Current Living Situation Comment: lives near [facility] current occupational status: retired current occupation: worked in [employer] nearly 40 years other: 3 children; 1 daughter is Feels Safe at Home: Yes Assistive Devices: None Review of Systems Review of Systems: gen - no fevers, chills, anorexia, weight loss eyes - no change in vision during her near-syncopal spells except for "things going dark in both eyes" HENT - no dysphagia, no sore throat or congestion neck - no pain CV - no chest pain (rest or exertion); no orthopnea or PND; no palpitations pulm - no cough or dyspnea or BAZZI GI - N/V during her near-syncopal spell today; no diarrhea; no abd pain; no blood in stool - no dysuria musculo - denies any specific joint pains psych - no chronic depression skin - no rashes endo - diabetes, controlled with metformin neuro - no ataxia, no vertigo, no focal motor weakness Physical Exam Physical Exam: gen - nad, pleasant, awake/alert eyes - PERRL; EOMI; no nystagmus HENT - MM slightly dry, no lesions neck - no JVD, no lymph nodes heart - regular rate, irregular (extra beats), s1 s2, no murmur lungs - CTA b/l abd - soft NT ND BS+; no HSM ext - no edema, pulses 2+ b/l neuro - finger/nose/finger maneuver without dysmetria; strength 5/5 x 4 exts; no facial droop skin - no rash psych - a/o x 3 lymph - no cervical lymph nodes palpated Results & Data Results & Data ([facility]) Vital Signs (Past 12 Hours) Vital Signs Temp Pulse Resp BP Pulse Ox 04/11/21 13:47 94 04/11/21 12:50 94 04/11/21 12:05 36.9 C 81 17 152/77 H 95 Laboratory Results Laboratory Results - last 24 hr 04/11/21 04/11/21 04/11/21 12:18 12:18 12:18 WBC 11.06 H RBC 4.34 Hgb 13.2 Hct 40.3 MCV 92.9 MCH 30.4 MCHC 32.8 RDW Std Deviation 47.7 H RDW Coeff of Valerie 14.1 Plt Count 324 MPV 11.0 H Immature Gran % (Auto) 0.3 Neut % (Auto) 71.6 Lymph % (Auto) 21.2 [place] % (Auto) 5.0 Eos % (Auto) 1.3 Baso % (Auto) 0.6 Neut # (Auto) 7.93 H Lymph # (Auto) 2.34 [place] # (Auto) 0.55 Eos # (Auto) 0.14 Baso # (Auto) 0.07 Immature Gran # (Auto) 0.03 H Sodium 139 Potassium 4.0 Chloride 104 Carbon Dioxide 27 Anion Gap 8 BUN 21 Creatinine 1.53 H Est Cr Clr Drug Dosing 28.2 Est GFR ( Amer) 37.1 Est GFR (Non-Af Amer) 32.0 BUN/Creatinine Ratio 13.7 Glucose 114 H Calcium 9.3 Phosphorus 3.4 Magnesium 1.7 Total Bilirubin 0.5 AST 19 ALT 9 Alkaline Phosphatase 48 Troponin I < 0.03 Total Protein 7.1 Albumin 4.0 Globulin 3.1 Albumin/Globulin Ratio 1.3 Lipase 77 TSH 4.582 H Free T4 0.76 Urine Color Urine Appearance Urine pH Ur Specific [place] Urine Protein Urine Glucose (UA) Urine Ketones Urine Blood Urine Nitrite Urine Bilirubin Urine Urobilinogen Ur Leukocyte Esterase Influ A Molecular Assay Influ B Molecular Assay SARS-CoV-2, RNA, NAAT 04/11/21 04/11/21 04/11/21 12:45 12:45 16:20 WBC RBC Hgb Hct MCV MCH MCHC RDW Std Deviation RDW Coeff of Valerie Plt Count MPV Immature Gran % (Auto) Neut % (Auto) Lymph % (Auto) [place] % (Auto) Eos % (Auto) Baso % (Auto) Neut # (Auto) Lymph # (Auto) [place] # (Auto) Eos # (Auto) Baso # (Auto) Immature Gran # (Auto) Sodium Potassium Chloride Carbon Dioxide Anion Gap BUN Creatinine Est Cr Clr Drug Dosing Est GFR ( Amer) Est GFR (Non-Af Amer) BUN/Creatinine Ratio Glucose Calcium Phosphorus Magnesium Total Bilirubin AST ALT Alkaline Phosphatase Troponin I Total Protein Albumin Globulin Albumin/Globulin Ratio Lipase TSH Free T4 Urine Color Yellow Urine Appearance Clear Urine pH 6.5 Ur Specific [place] 1.027 Urine Protein Negative Urine Glucose (UA) Negative Urine Ketones Trace H Urine Blood Negative Urine Nitrite Negative Urine Bilirubin Negative Urine Urobilinogen Negative Ur Leukocyte Esterase Negative Influ A Molecular Assay Negative Influ B Molecular Assay Negative SARS-CoV-2, RNA, NAAT NEGATIVE Diagnostic Findings Chest X-Ray 04/11/21 12:11 XR chest 1V portable HISTORY: Atypical Chest Pain COMPARISON: Chest 07/08/2020. FINDINGS: No pneumothorax. No pleural effusions. The lungs are clear. The cardiac silhouette remains mildly enlarged. No acute rib fractures identified. IMPRESSION: No significant change compared to the prior study. No acute process. ACT 112: Negative or not required by law. Electronically signed by: Carl Ellis M.D. 04/11/2021 12:[address] 04/11/21 12:20 CT angio head w con, CT head/brain wo con, CT angio neck with con CLINICAL HISTORY: near syncope, n/v TECHNIQUE: Contiguous axial CT images of the head were acquired from the base of the skull to the vertex without intravenous contrast administration. CT angiography of the head and neck was performed following intravenous administration of iodinated contrast. Coronal and sagittal MIPS were obtained from the axial data set and were submitted for review. Automated dose lowering techniques and/or adjustment according to patient size were utilized for this examination. All measurements were calculated based on NASCET criteria. Comparison: None available at the time of this dictation. FINDINGS: CT head: There is no acute intracranial hemorrhage or evidence of acute territorial infarction. No shift of the midline structures, mass effect, or extra-axial abnormalities are shown. Bilateral thyroid nodules measuring up to 2 cm. CTA Neck: A 3 vessel aortic arch is shown. Atherosclerotic plaque is present in the aortic arch and at the origin of the great vessels. The common carotid, external carotid, cervical segments of the internal carotid arteries, and the cervical segments of the vertebral arteries are patent without hemodynamically significant stenosis. The vertebral arteries are codominant. CTA Head: The anterior and posterior cerebral circulations are patent. No hemodynamically significant stenosis, aneurysm, dissection, or arteriovenous malformation is shown. No origin of the left posterior cerebral artery is noted. IMPRESSION: 1. No acute intracranial hemorrhage, evidence of acute territorial infarction, or other acute intracranial disease process. 2. No occlusion, hemodynamically significant stenosis, aneurysm, dissection, or arteriovenous malformation in the major intracranial arteries. 3. No occlusion, hemodynamically significant stenosis, or dissection in the major cervical arteries. 4. Multiple thyroid nodules, if not previously evaluated, nonemergent thyroid ultrasound can be performed. Assessment of stenosis of the internal carotid arteries is based on NASCET criteria. ACT 112: Negative or not required by law. Electronically signed by: Efren Galvez M.D. 04/11/2021 3:05 PM Head CTA 04/11/21 12:20 CT angio head w con, CT head/brain wo con, CT angio neck with con CLINICAL HISTORY: near syncope, n/v TECHNIQUE: Contiguous axial CT images of the head were acquired from the base of the skull to the vertex without intravenous contrast administration. CT angiography of the head and neck was performed following intravenous administration of iodinated contrast. Coronal and sagittal MIPS were obtained from the axial data set and were submitted for review. Automated dose lowering techniques and/or adjustment according to patient size were utilized for this examination. All measurements were calculated based on NASCET criteria. Comparison: None available at the time of this dictation. FINDINGS: CT head: There is no acute intracranial hemorrhage or evidence of acute territorial infarction. No shift of the midline structures, mass effect, or extra-axial abnormalities are shown. Bilateral thyroid nodules measuring up to 2 cm. CTA Neck: A 3 vessel aortic arch is shown. Atherosclerotic plaque is present in the aortic arch and at the origin of the great vessels. The common carotid, external carotid, cervical segments of the internal carotid arteries, and the cervical segments of the vertebral arteries are patent without hemodynamically significant stenosis. The vertebral arteries are codominant. CTA Head: The anterior and posterior cerebral circulations are patent. No hemodynamically significant stenosis, aneurysm, dissection, or arteriovenous malformation is shown. No origin of the left posterior cerebral artery is noted. IMPRESSION: 1. No acute intracranial hemorrhage, evidence of acute territorial infarction, or other acute intracranial disease process. 2. No occlusion, hemodynamically significant stenosis, aneurysm, dissection, or arteriovenous malformation in the major intracranial arteries. 3. No occlusion, hemodynamically significant stenosis, or dissection in the major cervical arteries. 4. Multiple thyroid nodules, if not previously evaluated, nonemergent thyroid ultrasound can be performed. Assessment of stenosis of the internal carotid arteries is based on NASCET criteria. ACT 112: Negative or not required by law. Electronically signed by: Efren Galvez M.D. 04/11/2021 3:05 PM Neck CTA 04/11/21 12:20 CT angio head w con, CT head/brain wo con, CT angio neck with con CLINICAL HISTORY: near syncope, n/v TECHNIQUE: Contiguous axial CT images of the head were acquired from the base of the skull to the vertex without intravenous contrast administration. CT angiography of the head and neck was performed following intravenous administration of iodinated contrast. Coronal and sagittal MIPS were obtained from the axial data set and were submitted for review. Automated dose lowering techniques and/or adjustment according to patient size were utilized for this examination. All measurements were calculated based on NASCET criteria. Comparison: None available at the time of this dictation. FINDINGS: CT head: There is no acute intracranial hemorrhage or evidence of acute territorial infarction. No shift of the midline structures, mass effect, or extra-axial abnormalities are shown. Bilateral thyroid nodules measuring up to 2 cm. CTA Neck: A 3 vessel aortic arch is shown. Atherosclerotic plaque is present in the aortic arch and at the origin of the great vessels. The common carotid, external carotid, cervical segments of the internal carotid arteries, and the cervical segments of the vertebral arteries are patent without hemodynamically significant stenosis. The vertebral arteries are codominant. CTA Head: The anterior and posterior cerebral circulations are patent. No hemodynamically significant stenosis, aneurysm, dissection, or arteriovenous malformation is shown. No origin of the left posterior cerebral artery is noted. IMPRESSION: 1. No acute intracranial hemorrhage, evidence of acute territorial infarction, or other acute intracranial disease process. 2. No occlusion, hemodynamically significant stenosis, aneurysm, dissection, or arteriovenous malformation in the major intracranial arteries. 3. No occlusion, hemodynamically significant stenosis, or dissection in the major cervical arteries. 4. Multiple thyroid nodules, if not previously evaluated, nonemergent thyroid ultrasound can be performed. Assessment of stenosis of the internal carotid arteries is based on NASCET criteria. ACT 112: Negative or not required by law. Electronically signed by: Efren Galvez M.D. 04/11/2021 3:05 PM EKG - my reading - NSR, PVCs, ventricular bigeminy, no ST changes Code Status & VTE Plan Code Status full code PG Care Time/CCT Total # of Minutes Spent Total Time Spent with Patient: Total time spent is greater than 50% in coordination of care (as documented) at patient's floor/unit and/or counseling patient: Coding Level of Care Code 09854 Initial Inpt Care Lvl 3 Diagnoses Near syncope R55 Ventricular bigeminy I49.9 Multiple thyroid nodules E04.2 CAD (coronary artery disease) I25.10 Coronary Disease-Associated Artery/Lesion type: iliamna artery [place] vs. 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
--- NOTE | 2021-04-11 15:07 | CT Scan Report ---
CT angio head w con, CT head/brain wo con, CT angio neck with con CLINICAL HISTORY: near syncope, n/v TECHNIQUE: Contiguous axial CT images of the head were acquired from the base of the skull to the jackson joanna without intravenous contrast administration. CT angiography of the head and neck was performed f ollowing intravenous administration of iodinated contrast. Coronal and sagittal MIPS were obtained fr om the axial data set and were submitted for review. Automated dose lowering techniques and/or adjus tment according to patient size were utilized for this examination. All measurements were calculated based on NASCET criteria. Comparison: None available at the time of this dictation. FINDINGS: CT head: There is no acute intracranial hemorrhage or evidence of acute territorial infarction. No sh ift of the midline structures, mass effect, or extra-axial abnormalities are shown. Bilateral thyroid nodules measuring up to 2 cm. CTA Neck: A 3 vessel aortic arch is shown. Atherosclerotic plaque is present in the aortic arch and at the origin of the great vessels. The common carotid, external carotid, cervical segments of the i nternal carotid arteries, and the cervical segments of the vertebral arteries are patent without hemo dynamically significant stenosis. The vertebral arteries are codominant. CTA Head: The anterior and posterior cerebral circulations are patent. No hemodynamically significan t stenosis, aneurysm, dissection, or arteriovenous malformation is shown. No origin of the left posterior cerebral artery is noted. IMPRESSION: 1. No acute intracranial hemorrhage, evidence of acute territorial infarction, or other acute intrac ranial disease process. 2. No occlusion, hemodynamically significant stenosis, aneurysm, dissection, or arteriovenous malfor mation in the major intracranial arteries. 3. No occlusion, hemodynamically significant stenosis, or dissection in the major cervical arteries. 4. Multiple thyroid nodules, if not previously evaluated, nonemergent thyroid ultrasound can be perf ormed. Assessment of stenosis of the internal carotid arteries is based on NASCET criteria. ACT 112: Negative or not required by law. Electronically signed by: Efren Galvez M.D. 04/11/2021 3:05 PM
[2021-04-11 17:00] LABS: Appearance Urine Clear (Clear); Bilirubin Urine Negative (Negative); Blood Urine Negative (Negative); Color Urine Yellow; Glucose Urine UA Negative (Negative); Ketones Urine Trace (Negative); Leukocyte Esterase Urine Negative (Negative); Nitrite Urine Negative (Negative); Protein Urine Negative (Negative); Specific Gravity Urine 1.027 (1.000-1.030); Urobilinogen Urine Negative (Negative); pH Urine 6.5 (4.5-7.5)
[2021-04-11] MEDS ORDERED: SODIUM CHLORIDE 0.9% 1000ML 1,000 ML IV SCH (18:16)
[2021-04-11] MEDS ORDERED: ONDANSETRON INJ 2 MG/ML 2 ML VIAL IV PRN (18:16)
[2021-04-11] MEDS ORDERED: ACETAMINOPHEN 325 MG TAB PO PRN (18:16)
[2021-04-11] MEDS: INSULIN ASPART PER UNIT SC SCH ×2 (19:53→19:59)
[2021-04-12 06:28] LABS: BUN Creatinine Ratio 11.4 (10-20); Calcium 8.2 mg/dl (8.5-10.1); Est GFR (African American) 38.3 ml/min; Est GFR (Non-African American) 33.1 ml/min; Potassium 3.9 mmol/L (3.5-5.1)
[2021-04-12] MEDS ORDERED: ASPIRIN 81 MG ECTAB PO SCH (09:00)
[2021-04-12] MEDS ORDERED: CYANOCOBALAMIN (B-12) 500 MCG TABLET PO SCH (09:00)
[2021-04-12] MEDS ORDERED: hydroCHLOROthiazide 25 MG TAB PO SCH (09:00)
[2021-04-12] MEDS ORDERED: HEPARIN SOD 5,000 UNIT/0.5 ML VIAL SQ SCH (09:00)
[2021-04-12] MEDS ORDERED: PANTOprazole 40 MG TAB PO SCH (09:00)
[2021-04-12] MEDS: INSULIN ASPART PER UNIT SC SCH ×2 (09:27→12:55)
--- NOTE | 2021-04-12 10:16 | Hospitalist Progress Note ---
Date of Service April 12, 2021 Assessment & Plan (1) Near syncope: Plan: Patient has several year history of near-syncope and syncope with some episodes requiring hospitalization s/p loop recorder implantation 06/2020--multiple PVCs, occasional ventricular bigeminy, sinus tach. - Loop recorder was interrogated 04/11/21, report is pending at this time - Cardiology has been consulted, appreciate recommendations, unsure if she will need further testing - Orthostatic VS have been ordered but doesn't appear were yet performed, will ask nursing to do and place on chart - Continue cardiac monitoring - Continue holding Coreg, HR most recently documented as 60s - Echo ordered, pending - Troponins negative x 2 (2) Ventricular bigeminy: Plan: - Cause of her near-syncope? - Await loop recorder download. - Hold coreg in the event she had bradycardia contributing to near syncope - Update echocardiogram (3) Multiple thyroid nodules: Plan: - Will need nonurgent u/s after discharge. - TSH is mildly elevated; could consider synthroid supplementation. - Defer to PCP (4) CAD (coronary artery disease): Plan: - Multiple stents in the past. - No recent ischemic symptoms, trop negative x2. - Continue asa. - Holding beta-medardo - see #1 above. - Uncertain why she is not on statin. (5) DM w/o complication type II: Plan: Check HbA1C in am. hold metformin. Novolog sliding scale for meal coverage. (6) Chronic renal failure, stage 3b: Plan: - It appears that her baseline CrCl is about 30. - S/p 1L of NS, creatinine not far from baseline and appears euvolemic (7) DVT prophylaxis: Plan: - Heparin 5000 BID (8) Essential hypertension: Plan: - Continue HCTZ. - No orthostasis on orthostatic checks--but none available for review on chart - Holding coreg until full results of loop recorder interrogation are back. - Can decide at that time whether to resume Coreg or may need to consider another antihypertensive Plan: Will provide update to family later in day after cardiology sees patient. Admission and Anticipated Discharge Date Admission Date: April 11, 2021 Subjective Patient seen on rounds this morning, remains in ER as bed hold. She is resting comfortably in bed, has no complaints at this time. She was hospitalized due to near syncope. Has a long standing history of this. Loop recorder implanted in june 2020 noted episodes of ventricular bigeminy. She denies chest pain, dyspnea, lightheadedness/dizziness, n/v/d, f/c. She was up ambulating to the bathroom w/o symptoms. Review of Systems Review of Systems: CONSTITUTIONAL: Denies weight loss/gain, fever and chills, fatigue, malaise, generalized weakness. HEENT: Denies changes in vision and hearing. RESPIRATORY: Denies SOB, cough, wheezing. CV: Denies palpitations, CP, lower extremity edema, orthopnea, PND. GI: Denies abdominal pain, nausea, vomiting and diarrhea. : Denies dysuria and urinary frequency, urgency, hesitancy. MUSCULOSKELETAL: Denies myalgia and joint pain. SKIN: Denies rash and pruritus. NEUROLOGICAL: +lightheaded/dizzy yesterday, nothing today. Denies headache, syncope, focal weakness, numbness, tingling. PSYCHIATRIC: Denies recent changes in mood. Denies anxiety and depression. Physical Exam Physical Exam: GENERAL: 80 yo well-developed, well-nourished elderly wf. NAD. LUNGS: Clear to auscultation bilaterally. No accessory muscle use. No W/R/R. CARDIOVASCULAR: S1, S2, regular rate but irregular rhythm (extra beats) ABDOMEN: Soft, non-tender and non-distended. BS normal x 4 quad. EXTREMITIES: No edema. Non-tender. Peripheral pulses +2/4. NEUROLOGIC: A&O x3. PSYCHIATRIC: Cooperative. Appropriate mood and affect. SKIN: Warm, dry, intact. No rashes or lesions. Results & Data Results & Data ([facility]) Vital Signs (Past 12 Hours) Vital Signs Temp Pulse Resp BP Pulse Ox 04/12/21 07:37 36.9 C 61 18 164/52 H 96 04/12/21 02:59 36.9 C 71 20 97/72 L 95 04/11/21 23:52 36.6 C 62 20 151/64 H 98 Laboratory Results 04/11/21 12:18 04/12/21 05:58 PG Care Time/CCT Total # of Minutes Spent Total Time Spent with Patient: Total time spent is greater than 50% in coordination of care (as documented) at patient's floor/unit and/or counseling patient: Coding Level of Care Code 25644 Subseq Hosp Care Lvl 2 Diagnoses Near syncope R55 Ventricular bigeminy I49.9 Multiple thyroid nodules E04.2 CAD (coronary artery disease) I25.10 Coronary Disease-Associated Artery/Lesion type: eek artery [place] vs. transplanted heart: eek heart Associated angina: without angina DM w/o complication type II E11.9 Diabetes mellitus intermediate card tender insulin use: without residential use Chronic renal failure, stage 3b N18.32 DVT prophylaxis Z29.9 Essential hypertension I10 (1) CAD (coronary artery disease) Coronary Disease-Associated Artery/Lesion type: eek artery [place] vs. transplanted heart: eek heart Associated angina: without angina Qualified Code(s): I25.10 - Atherosclerotic heart disease of eek coronary artery without angina pectoris (2) DM w/o complication type II Diabetes mellitus residential insulin use: without residential use Qualified Code(s): E11.9 - Type 2 diabetes mellitus without complications
--- NOTE | 2021-04-12 13:58 | Cardiology Consultation ---
Date of Consultation April 12, 2021 Assessment & Plan (1) Near syncope: (2) Essential hypertension: (3) Frequent PVCs: (4) CAD (coronary artery disease): ASSESSMENT/PLAN: 1. Near-syncope: No obvious bradycardic episode or tachyarrhythmia noted on loop recorder to suggest etiology for her symptoms. Could be vagally mediated as previously discussed by electrophysiology. Recommend that she remain well hydrated. If she should have the onset of symptoms, she was reminded to lay do wn if possible to avoid injury if she should have further syncope laying supine should hopefully improve her symptoms however. Consider compression stockings. Check orthostatics if not already completed. 2. Hypertension: Blood pressure has been elevated. Would recommend resuming her home dose of beta-medardo. 3. CAD s/p PCI: No angina. Continue aspirin 81 mg daily indefinitely. Continue beta-medardo. Recommend high-intensity statin therapy if no contraindication. 4. Frequent PVCs: Chronic issue. She has been having frequent PVCs while hospitalized with no symptoms. No specific therapy necessary at this time. 5. Disposition: Can be discharged home from a Cardiology perspective. Follow- up with Dr. Trejo. Dr. Trejo was updated. Plan of care discussed with Dr. Blackwell of the primary hospitalist service. Today's consultation was 50 minutes in duration, including [id number] time, chart review, coordinating care with other providers, and documentation completion. Thank you for allowing me to participate in the care of your patient. Please call for any other questions or concerns. Sincerely, Emile Peterson M.D. History of Present Illness Reason for Consultation: Near-syncope Requesting Physician: Vladimir Smith Attending Physician: Harshad Blackwell MD History of Present Illness Ms Vicente is a pleasant 80-year-old female with a history significant for frequent PVCs, CAD s/p PCI, type 2 diabetes, anemia, and recurrent near syncope s/p loop recorder placement. Her primary pricing/signage team member is Dr. Trejo. She was admitted on 04/11/2021 with near syncope. This is her third such episode that she can recall. She recalls having an episode in June of 2020, August of 2019, and the day of presentation. Because of the 2 prior episodes, she had a loop recorder placed. This was the first episode while loop recorder was in place. She was sitting on a couch for several minutes and then felt lightheaded. She became quite nauseated and vomited. Her vision went black but she did not lose consciousness. She has been having minor spells leading up to this for the past few weeks. She believes that she has been eating and drinking her usual amount. She remains active and has not had any exertional symptoms such as chest pain or shortness of breath. She denies palpitations during her episode or other times. She has not had any lower extremity swelling. She denies bleeding. A loop recorder interrogation was performed in the emergency department on presentation. No arrhythmia or heart block was noted. Her heart rate was in the 50s at times. She has frequent ectopy which was previously known. She continues to have frequent ectopy on telemetry here but has remained asymptomatic during this hospital stay. She feels back to baseline. When she was seen by Dr. Trejo in the past, it was felt that episodes may have been vagally mediated. In regards to ventricular bigeminy, this was mentioned even on consult on 08/15/2019. Review of systems: As above. Review of systems otherwise negative/unremarkable. Family history: Father and mother had CAD. Daughter with significant CAD. Social history: She denies tobacco, alcohol, or drug abuse. She had 3 children but 1 . She lives at home with her . She has grandchildren. She was unaccompanied in her hospital ER room. Allergies Allergy/AdvReac Type Severity Reaction Status Date / Time No Known Allergies Allergy Unverified 04/11/21 13:16 Home Medications Medication Instructions Recorded Confirmed Type metformin 1,000 mg tablet 1,000 mg PO BID 08/15/19 04/11/21 History aspirin 81 mg tablet,delayed 81 mg PO QAM 07/08/20 04/11/21 History release (Aspirin Low Dose) cyanocobalamin (vitamin B-12) 1,000 mcg SUBLINGUAL DAILY 07/08/20 04/11/21 History 1,000 mcg sublingual tablet carvedilol 12.5 mg tablet 6.25 mg PO BID #0 tab 07/10/20 04/11/21 Rx hydrochlorothiazide 12.5 mg tablet 12.5 mg PO DAILY 11/19/20 04/11/21 History Patient History Medical History (Updated 04/12/21 @ 14:21 by Teodoro Peterson MD) CAD (coronary artery disease) Previously followed with Dr Lombardi - cardiology in [place]. s/p stents in: 2007 (twice), 2008, 2010, 2018. All @ [facility]. DM w/o complication type II Essential hypertension Frequent PVCs Near syncope Right leg DVT 03/2019 - treated 3 months with eliquis (provoked by arthroscopic knee surgery) Status post placement of implantable loop recorder Syncope Ventricular bigeminy Surgical History H/O arthroscopy of right knee H/O: hysterectomy History of coronary artery stent placement 5 stents S/P appendectomy S/P laparoscopic cholecystectomy Family History (Updated 04/11/21 @ 15:43 by Vladimir Smith) Daughter , age 57 Coronary heart disease Congestive heart failure Father , age 71 Heart disease Mother , age 77 Heart disease Diabetes Coronary heart disease s/p CABG Kidney disease ESRD was on dialysis Social History (Updated 04/11/21 @ 15:44 by Vladimir Smith) Smoking Status: Never smoker Do You Dip or Chew Tobacco: No; Hx Alcohol Use: No Hx Substance Use: No Preferred Language: Lao Communication Ability: Effective Garment Alteration Examiner Required: No Beliefs That Will Affect Care: None marital status: Current Living Situation: Spouse Current Living Situation Comment: lives near [facility] current occupational status: retired current occupation: worked in [employer] nearly 40 years other: 3 children; 1 daughter is Feels Safe at Home: Yes Safety Concerns: Feels Safe At This Time Assistive Devices: None Physical Exam Physical Exam: Gen.: No acute distress. Alert and oriented. HEENT: Anicteric sclera. Neck: No JVD. No bruits. Normal carotid upstrokes bilaterally. Cardiac: PMI was nondisplaced. No ventricular heave. Regular with ectopy. Normal S1-S2. 1/6 systolic murmur best heard at the left upper sternal border. No rubs or gallops. Pulmonary: Clear to auscultation bilaterally without wheezes, rales, or rhonchi. Abdomen: Soft, nontender, nondistended, with normoactive bowel sounds. No bruits noted. Extremities: 2+ radial pulses bilaterally. 2+ posterior tibialis pulses bilaterally. No edema or cyanosis. Psychiatric: Affect appears appropriate. Results & Data ([facility]) Vital Signs (Past 12 Hours) Vital Signs Temp Pulse Resp BP Pulse Ox 04/12/21 11:40 36.8 C 72 14 162/60 H 95 04/12/21 07:37 36.9 C 61 18 164/52 H 96 04/12/21 02:59 36.9 C 71 20 97/72 L 95 Laboratory Results Laboratory Results - last 24 hr 04/11/21 04/11/21 04/11/21 16:20 18:22 19:24 Sodium Potassium Chloride Carbon Dioxide Anion Gap BUN Creatinine Est Cr Clr Drug Dosing Est GFR ( Amer) Est GFR (Non-Af Amer) BUN/Creatinine Ratio Glucose POC Glucose 124 H Calcium Troponin I < 0.03 Urine Color Yellow Urine Appearance Clear Urine pH 6.5 Ur Specific [place] 1.027 Urine Protein Negative Urine Glucose (UA) Negative Urine Ketones Trace H Urine Blood Negative Urine Nitrite Negative Urine Bilirubin Negative Urine Urobilinogen Negative Ur Leukocyte Esterase Negative 04/12/21 04/12/21 04/12/21 00:28 05:58 07:43 Sodium 138 Potassium 3.9 Chloride 106 Carbon Dioxide 28 Anion Gap 4 BUN 17 Creatinine 1.49 H Est Cr Clr Drug Dosing 29.0 Est GFR ( Amer) 38.3 Est GFR (Non-Af Amer) 33.1 BUN/Creatinine Ratio 11.4 Glucose 87 POC Glucose 96 Calcium 8.2 L Troponin I < 0.03 Urine Color Urine Appearance Urine pH Ur Specific [place] Urine Protein Urine Glucose (UA) Urine Ketones Urine Blood Urine Nitrite Urine Bilirubin Urine Urobilinogen Ur Leukocyte Esterase 04/12/21 12:36 Sodium Potassium Chloride Carbon Dioxide Anion Gap BUN Creatinine Est Cr Clr Drug Dosing Est GFR ( Amer) Est GFR (Non-Af Amer) BUN/Creatinine Ratio Glucose POC Glucose 138 H Calcium Troponin I Urine Color Urine Appearance Urine pH Ur Specific [place] Urine Protein Urine Glucose (UA) Urine Ketones Urine Blood Urine Nitrite Urine Bilirubin Urine Urobilinogen Ur Leukocyte Esterase Diagnostic Findings ECG personally reviewed 04/11/2021 at 12:07 p.m.: Sinus rhythm with PVCs in a bigeminal pattern. ECG 04/12/2021 at 9:15 a.m.: Sinus rhythm with PVCs. Echo 07/09/2020: Normal LV size, wall motion, systolic function. EF 60-65%. Mild MR. Loop recorder report reviewed. Neck CTA 04/11/2021: No significant stenosis. Medications Administered Current Inpatient Medications Acetaminophen (Acetaminophen 325 Mg Tab) 650 mg PO Q4H PRN PRN Reason: Pain or Fever Stop: 05/11/21 18:15 Aspirin (Aspirin 81 Mg Ectab) 81 mg PO QAM [facility] Stop: 05/12/21 08:59 Last Admin: 04/12/21 08:41 Dose: 81 mg Documented by: Cyanocobalamin (Cyanocobalamin 500 Mcg Tablet (Vitamin B-12)) 1,000 mcg PO DAILY [facility] Stop: 05/12/21 08:59 Last Admin: 04/12/21 08:40 Dose: 1,000 mcg Documented by: Heparin Sodium (Porcine) (Heparin Sod 5,000 Unit/0.5 Ml Vial) 5,000 units SQ Q12 [facility] Stop: 05/12/21 08:59 Last Admin: 04/12/21 09:30 Dose: 5,000 units Documented by: Hydrochlorothiazide (Hydrochlorothiazide 25 Mg Tab) 12.5 mg PO DAILY [facility] Stop: 05/12/21 08:59 Last Admin: 04/12/21 08:40 Dose: 12.5 mg Documented by: Insulin Aspart (Insulin Aspart Per Unit) 0 units SC ACHS [facility] Stop: 05/11/21 18:15 Last Admin: 04/12/21 12:55 Dose: Not Given Documented by: Ondansetron HCl (Ondansetron Inj 2 Mg/Ml 2 Ml Vial) 4 mg IV Q6H PRN PRN Reason: Nausea Stop: 05/11/21 18:15 Pantoprazole Sodium (Pantoprazole 40 Mg Tab) 40 mg PO QAM [facility] Stop: 04/15/21 08:59 Last Admin: 04/12/21 08:41 Dose: 40 mg Documented by: PG Care Time/CCT Total # of Minutes Spent Total Time Spent with Patient: Total time spent is greater than 50% in coordination of care (as documented) at patient's floor/unit and/or counseling patient: Coding Level of Care Code 54232 Office/Outpt Visit, Est Diagnoses Near syncope R55 Essential hypertension I10 Frequent PVCs I49.3 CAD (coronary artery disease) I25.10 Coronary Disease-Associated Artery/Lesion type: [place] artery [place] vs. transplanted heart: [place] heart Associated angina: without angina (1) CAD (coronary artery disease) Coronary Disease-Associated Artery/Lesion type: [place] artery [place] vs. transplanted heart: [place] heart Associated angina: without angina Qualified Code(s): I25.10 - Atherosclerotic heart disease of [place] coronary artery without angina pectoris
--- NOTE | 2021-04-12 15:24 | Discharge Summary ---
Date of Service April 12, 2021 Admission HPI Per Admitting Provider Pleasant 80yo female with history of HTN, T2DM, ventricular bigeminy, CAD, and prior episodes of near-syncope presents with an episode of same at ~10 or 11 o'clock this am. The patient was sitting on her couch watching the [employer] Show when she developed severe dizziness/lightheadedness like "I was going to black out." She did not have any vertigo. She had severe nausea/vomiting and developed profuse diaphoresis. No chest pain, dyspnea, cough, or abdominal pain. She called for her , who in turn called their daughter. Daughter subsequently called 911 and EMS was summoned to her home. EMS report shows that her BSG was >100 at the time of their arrival. The patient has a loop recorder and this was interrogated today by [employer]. Apparently about the time of this episode she had bradycardia with ventricular bigeminy. Patient also mentions she has had 2 other less severe episodes of dizziness over the last week. 1 episode occurred while standing in her kitchen, and the episode resolved with laying down. A 3rd episode occurred while sitting but she could not provide additional details about this latter spell. Of note - patient has been following with Dr Jamey Trejo with [facility] for monitoring of her loop device. The loop was placed several years ago due to episodes of near-syncope similar to what brought her to the hospital today. Past interrogations have shown frequent ectopy (PVCs) and ventricular bigeminy but no ventricular tachycardia, pauses, high-degree AV block, rapid atrial fibrillation, etc. Prior to the episode today the patient has been feeling well otherwise and without chest pain, dyspnea or any restrictions in her daily activities. Principal Diagnosis Near syncope Discharge Exam GENERAL: 80 yo well-developed, well-nourished elderly wf. NAD. LUNGS: Clear to auscultation bilaterally. No accessory muscle use. No W/R/R. CARDIOVASCULAR: S1, S2, regular rate but irregular rhythm (extra beats) ABDOMEN: Soft, non-tender and non-distended. BS normal x 4 quad. EXTREMITIES: No edema. Non-tender. Peripheral pulses +2/4. NEUROLOGIC: A&O x3. PSYCHIATRIC: Cooperative. Appropriate mood and affect. SKIN: Warm, dry, intact. No rashes or lesions. Discharge Data Allergies Allergy/AdvReac Type Severity Reaction Status Date / Time No Known Allergies Allergy Unverified 04/11/21 13:16 Consultations 04/11/21 14:38 ED Decision to Admit Stat 04/11/21 18:16 Consult Cardiology Routine -- seen by Dr. Peterson, appreciate recommendations Ordered Studies Chest X-Ray 04/11/21 12:11 XR chest 1V portable HISTORY: Atypical Chest Pain COMPARISON: Chest 07/08/2020. FINDINGS: No pneumothorax. No pleural effusions. The lungs are clear. The cardiac silhouette remains mildly enlarged. No acute rib fractures identified. IMPRESSION: No significant change compared to the prior study. No acute process. ACT 112: Negative or not required by law. Electronically signed by: Carl Ellis M.D. 04/11/2021 12:[address] 04/11/21 12:20 CT angio head w con, CT head/brain wo con, CT angio neck with con CLINICAL HISTORY: near syncope, n/v TECHNIQUE: Contiguous axial CT images of the head were acquired from the base of the skull to the vertex without intravenous contrast administration. CT angiography of the head and neck was performed following intravenous administration of iodinated contrast. Coronal and sagittal MIPS were obtained from the axial data set and were submitted for review. Automated dose lowering techniques and/or adjustment according to patient size were utilized for this examination. All measurements were calculated based on NASCET criteria. Comparison: None available at the time of this dictation. FINDINGS: CT head: There is no acute intracranial hemorrhage or evidence of acute territorial infarction. No shift of the midline structures, mass effect, or extra-axial abnormalities are shown. Bilateral thyroid nodules measuring up to 2 cm. CTA Neck: A 3 vessel aortic arch is shown. Atherosclerotic plaque is present in the aortic arch and at the origin of the great vessels. The common carotid, external carotid, cervical segments of the internal carotid arteries, and the cervical segments of the vertebral arteries are patent without hemodynamically significant stenosis. The vertebral arteries are codominant. CTA Head: The anterior and posterior cerebral circulations are patent. No hemodynamically significant stenosis, aneurysm, dissection, or arteriovenous malformation is shown. No origin of the left posterior cerebral artery is noted. IMPRESSION: 1. No acute intracranial hemorrhage, evidence of acute territorial infarction, or other acute intracranial disease process. 2. No occlusion, hemodynamically significant stenosis, aneurysm, dissection, or arteriovenous malformation in the major intracranial arteries. 3. No occlusion, hemodynamically significant stenosis, or dissection in the major cervical arteries. 4. Multiple thyroid nodules, if not previously evaluated, nonemergent thyroid ultrasound can be performed. Assessment of stenosis of the internal carotid arteries is based on NASCET criteria. ACT 112: Negative or not required by law. Electronically signed by: Efren Galvez M.D. 04/11/2021 3:05 PM Head CTA 04/11/21 12:20 CT angio head w con, CT head/brain wo con, CT angio neck with con CLINICAL HISTORY: near syncope, n/v TECHNIQUE: Contiguous axial CT images of the head were acquired from the base of the skull to the vertex without intravenous contrast administration. CT angiography of the head and neck was performed following intravenous administration of iodinated contrast. Coronal and sagittal MIPS were obtained from the axial data set and were submitted for review. Automated dose lowering techniques and/or adjustment according to patient size were utilized for this examination. All measurements were calculated based on NASCET criteria. Comparison: None available at the time of this dictation. FINDINGS: CT head: There is no acute intracranial hemorrhage or evidence of acute territorial infarction. No shift of the midline structures, mass effect, or extra-axial abnormalities are shown. Bilateral thyroid nodules measuring up to 2 cm. CTA Neck: A 3 vessel aortic arch is shown. Atherosclerotic plaque is present in the aortic arch and at the origin of the great vessels. The common carotid, external carotid, cervical segments of the internal carotid arteries, and the cervical segments of the vertebral arteries are patent without hemodynamically significant stenosis. The vertebral arteries are codominant. CTA Head: The anterior and posterior cerebral circulations are patent. No hemodynamically significant stenosis, aneurysm, dissection, or arteriovenous malformation is shown. No origin of the left posterior cerebral artery is noted. IMPRESSION: 1. No acute intracranial hemorrhage, evidence of acute territorial infarction, or other acute intracranial disease process. 2. No occlusion, hemodynamically significant stenosis, aneurysm, dissection, or arteriovenous malformation in the major intracranial arteries. 3. No occlusion, hemodynamically significant stenosis, or dissection in the major cervical arteries. 4. Multiple thyroid nodules, if not previously evaluated, nonemergent thyroid ultrasound can be performed. Assessment of stenosis of the internal carotid arteries is based on NASCET criteria. ACT 112: Negative or not required by law. Electronically signed by: Efren Galvez M.D. 04/11/2021 3:05 PM Neck CTA 04/11/21 12:20 CT angio head w con, CT head/brain wo con, CT angio neck with con CLINICAL HISTORY: near syncope, n/v TECHNIQUE: Contiguous axial CT images of the head were acquired from the base of the skull to the vertex without intravenous contrast administration. CT angiography of the head and neck was performed following intravenous administration of iodinated contrast. Coronal and sagittal MIPS were obtained from the axial data set and were submitted for review. Automated dose lowering techniques and/or adjustment according to patient size were utilized for this examination. All measurements were calculated based on NASCET criteria. Comparison: None available at the time of this dictation. FINDINGS: CT head: There is no acute intracranial hemorrhage or evidence of acute terr itorial infarction. No shift of the midline structures, mass effect, or extra- axial abnormalities are shown. Bilateral thyroid nodules measuring up to 2 cm. CTA Neck: A 3 vessel aortic arch is shown. Atherosclerotic plaque is present in the aortic arch and at the origin of the great vessels. The common carotid, external carotid, cervical segments of the internal carotid arteries, and the cervical segments of the vertebral arteries are patent without hemodynamically significant stenosis. The vertebral arteries are codominant. CTA Head: The anterior and posterior cerebral circulations are patent. No hemodynamically significant stenosis, aneurysm, dissection, or arteriovenous malformation is shown. No origin of the left posterior cerebral artery is noted. IMPRESSION: 1. No acute intracranial hemorrhage, evidence of acute territorial infarction, or other acute intracranial disease process. 2. No occlusion, hemodynamically significant stenosis, aneurysm, dissection, or arteriovenous malformation in the major intracranial arteries. 3. No occlusion, hemodynamically significant stenosis, or dissection in the major cervical arteries. 4. Multiple thyroid nodules, if not previously evaluated, nonemergent thyroid ultrasound can be performed. Assessment of stenosis of the internal carotid arteries is based on NASCET criteria. ACT 112: Negative or not required by law. Electronically signed by: Efren Galvez M.D. 04/11/2021 3:05 PM Hospital Course (1) Near syncope: Patient has several year history of near-syncope and syncope with some episodes requiring hospitalization s/p loop recorder implantation 06/2020--multiple PVCs, occasional ventricular bigeminy, sinus tach. - Loop recorder was interrogated 04/11/21, no bradycardia or tachyarrhythmia to account for patient's symptoms - Cardiology has been consulted, appreciate recommendations, no need for additional testing at this time, symptoms could be vagally mediated - Orthostatic VS have been ordered but doesn't appear were yet performed, completed and negative - Last echo from 06/2020, no need to repeat at this time, can be done as outpatient - Troponins negative x 2, ruled out for ACS (2) Ventricular bigeminy: - Cardiology does not feel that this is the cause for her near syncope (3) Multiple thyroid nodules: - Will need nonurgent u/s after discharge. - TSH is mildly elevated; could consider synthroid supplementation. - Defer to PCP (4) CAD (coronary artery disease): - Multiple stents in the past. - No recent ischemic symptoms, trop negative x2. - Continue asa. - Holding beta-medardo - see #1 above. - Uncertain why she is not on statin. (5) DM w/o complication type II: Check HbA1C in am. hold metformin. Novolog sliding scale for meal coverage. (6) Chronic renal failure, stage 3b: - It appears that her baseline CrCl is about 30. - S/p 1L of NS, creatinine not far from baseline and appears euvolemic (7) DVT prophylaxis: - Heparin 5000 BID (8) Essential hypertension: - Continue HCTZ and resume Coreg At this time, pt is felt to be medically and hemodynamically stable for discharge back home. She can follow up with her primary care physician in 1 week and keep her next scheduled f/u with cardiology. Plan has been d/w Dr. Blackwell. I did attempt to contact patient's daughter to provide an update and she did not answer. Left a message. Total Time Total Time Spent Total Time Spent (In Minutes): >30 minutes Discharge Plan Discharge Items Patient Disposition: Home - Self-Care Reason For Visit: NEAR-SYNCOPE Discharge Diagnosis: Dizziness, vomiting Activity: Resume your previous activity Non-emergency contact: Primary Care Provider and Strip Feeder Call non-emergency contact if: you have any medication questions and your symptoms worsen Follow-up/Referrals: Marlin Rowe MD [Primary Care Provider] - Diet: Carb Consistent or DM2 Addtl Attending Provider Instructions: * You were hospitalized due to concern that your symptoms could've been associated with a dangerous arrhythmia. The golf club weigher was able to review your loop recorder and determine that this not the case. * You can continue all of your medications as prescribed prior to your hospitalization. * We would advise follow up with your family doctor within 1 week of discharge. You have some thyroid nodules that will require further investigation with an ultrasound. Your primary care doctor can assist you in setting this up. * We would also advise you to follow up with your golf club weigher as scheduled. Pending Studies at Discharge: No Stand-Alone Forms: [facility], Smoking Cessation Medications and DC Order Prescriptions: Continued hydrochlorothiazide 12.5 mg tablet 12.5 mg PO DAILY RF: 0 metformin 1,000 mg tablet 1,000 mg PO BID RF: 0 aspirin [Aspirin Low Dose] 81 mg Tablet,Delayed Release (Dr/Ec) 81 mg PO QAM RF: 0 cyanocobalamin (vitamin B-12) 1,000 mcg Tablet, Sublingual 1,000 mcg SUBLINGUAL DAILY RF: 0 carvedilol 12.5 mg tablet 6.25 mg PO BID Qty: 0 RF: 0 Discharge Orders: Discharge Order (Routine); Ordered 04/12/21 Ordered By: Eli Tierney Admission Data Admit Date/Time: 04/11/21 15:54 Attending Provider: Harshad Blackwell Admit Provider: Vladimir Smith Primary Care Provider: Marlin Rowe Other Providers: Vladimir Smith ; Teodoro Peterson Other Interventions: Discharge Summary Assessment (RN) Last Done: 04/12/21 16:44 Coding Level of Care Code D/C DAY MANAGEMENT >30 MINS Diagnoses Near syncope R55 Ventricular bigeminy I49.9 Multiple thyroid nodules E04.2 CAD (coronary artery disease) I25.10 Associated angina: without angina Coronary Disease-Associated Artery/Lesion type: eagle artery [place] vs. 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
--- NOTE | 2021-04-13 06:09 | Electrocardiogram Report ---
Test Reason : Blood Pressure : / mmHG Vent. Rate : 064 BPM Atrial Rate : 064 BPM P-R Int : 188 ms QRS Dur : 094 ms QT Int : 448 ms P-R-T Axes : 086 012 039 degrees QTc Int : 462 ms Sinus rhythm with frequent Premature ventricular complexes in a pattern of bigeminy Otherwise normal ECG When compared with ECG of 10-JUL-2020 02:24, No significant change was found Confirmed by Teodoro Peterson ([id number]) on 04/13/2021 6:08:36 AM Referred By: Confirmed By:Teodoro Peterosn
--- NOTE | 2021-04-13 06:50 | Electrocardiogram Report ---
Test Reason : Blood Pressure : / mmHG Vent. Rate : 067 BPM Atrial Rate : 067 BPM P-R Int : 202 ms QRS Dur : 088 ms QT Int : 426 ms P-R-T Axes : 051 021 053 degrees QTc Int : 450 ms Sinus rhythm with frequent Premature ventricular complexes Otherwise normal ECG When compared with ECG of 11-APR-2021 12:07, No significant change was found Confirmed by Teodoro Peterson ([id number]) on 04/13/2021 6:49:56 AM Referred By: REFERRED SELF Confirmed By:Teodoro Peterson
== END 2021-04-12 16:57 | disposition home or self-care (01) ==
LOC: ED 12:01 → INTOOBSV 15:54 → EDINP 15:54 → SUATTDRO 15:54 → EDINP 04-12 16:44

== ENCOUNTER 2021-08-30 13:48 | Observation (INO) ==
[2021-08-30] MEDS ORDERED: ONDANSETRON INJ 2 MG/ML 2 ML VIAL IV STA ×2 (14:03→16:38)
--- NOTE | 2021-08-30 14:09 | Emergency Department Note ---
Impression & Plan Vertigo, Hypomagnesemia, BRENNAN (acute kidney injury), Vomiting, Sinusitis ED Provider Note NAME: RENATO ALICIA AGE: 80 SEX: F : 1940 ARRIVES VIA: Ambulance INFORMANT: Patient, ED PROVIDER(S): Maynor Lubin DO CHIEF COMPLAINT: Vertigo HPI: The patient is a 80-year-old female who presented to the emergency department for an evaluation of dizziness and vomiting. The patient states she has a history of vertigo in the past. She states that she started noticing symptoms yesterday. She started having dizziness upon standing as well as moving her head. She did not see her family doctor for the symptoms. She has been compliant with her outpatient medications. She states symptoms resolved yesterday but returned again today prior to arrival. She called 911 because of the nausea and vomiting which became very severe. She denies having any chest pain. She denies having any lower extremity swelling. She is had no fever. She has had a slight cough but she thinks that is because she is been vomiting. The patient was not treated by the prehospital personnel prior to arrival. She continues to have severe nausea. She denies having any diplopia headache or weakness which is unilateral. ROS: See above HPI for pertinent positives & negatives. A total of 10 systems reviewed and were otherwise negative. PAST MEDICAL HISTORY: See Below PAST SURGICAL HISTORY: See Below FAMILY HISTORY: See Below SOCIAL HISTORY: See Below HOME MEDICATIONS: See Below ALLERGIES: See Below VITALS: See Below PHYSICAL EXAMINATION: GENERAL: The patient is awake and alert. She is somewhat anxious appearing and appears to be actively retching. EYES: The conjunctivae are clear. The pupils are round and reactive. No nystagmus was elicited. EARS, NOSE, MOUTH AND THROAT: The nose is without any evidence of any deformity. NECK: The neck is nontender and supple. RESPIRATORY: Normal respiratory effort is noted there is no evidence of wheezing rhonchi or rales CARDIOVASCULAR: Regular rate and rhythm noted there no murmurs rubs or gallops normal S1 normal S2. GASTROINTESTINAL: The abdomen is soft. Abdomen is nontender. MUSCULOSKELETAL/EXTREMITIES: There is no evidence of gross deformity full range of motion is noted in the hips and shoulders. SKIN: Skin is warm and dry. There is no significant pedal edema. NEUROLOGIC: Patient is awake alert and oriented x3 strength is symmetric. There is no facial droop. There is no drift in the upper extremities. MEDICAL DECISION MAKING: The patient is a 80-year-old female who presented to the emergency department for an evaluation of vertigo. The patient states she had a history of vertigo in the past. She has no other focal neurologic deficits. She was found to have signs of sinusitis on CT. This could be the cause of her vertigo symptoms. She was treated with antibiotics in emergency department. She was also treated with IV fluids and antiemetics. She was also treated with magnesium replacement. Initially she was feeling somewhat improved but then on reevaluation started having worsening symptoms. Given her ongoing symptoms I do feel the patient would not do well as an outpatient so I discussed her case with the on-call [facility] hospitalist. They have agreed to evaluate the patient in the emergency department for further management and disposition. Triage Nursing notes reviewed. Prior medical records reviewed Vital Signs: reviewed and remarkable for elevated blood pressure. Differential diagnosis: Benign positional vertigo, dehydration, hypovolemia, anemia, tumor, infection, hypoglycemia, electrolyte abnormalities, cardiac sources, intracerebral event, toxicologic, neurologic, as well as other pathologies. ER treatment provided: See below Diagnostics interpreted by me: ECG: EKG was obtained in the emergency department. My interpretation is sinus rhythm at 61 bpm. PVCs were noted. Poor wave progression was appreciated. Nonspecific T wave abnormalities were noted in the anterior and high lateral leads. These T wave inversions are new compared to the previous tracing on April 12, 2021. Cardiac Monitoring: An order was placed for continuous cardiac monitoring. The monitor shows a rate of 68 bpm with sinus rhythm. Laboratory studies: As stated above and show below. Imaging studies: See below Consultation(s): I discussed this case with Dr. Park [facility]. Past Med/Surg History Medical History CAD (coronary artery disease) Previously followed with Dr Lombardi - cardiology in [place]. s/p stents in: 2007 (twice), 2008, 2010, 2018. All @ [facility]. DM w/o complication type II Essential hypertension Frequent PVCs Near syncope Right leg DVT 03/2019 - treated 3 months with eliquis (provoked by arthroscopic knee surgery) Status post placement of implantable loop recorder Syncope Ventricular bigeminy Surgical History H/O arthroscopy of right knee H/O: hysterectomy History of coronary artery stent placement 5 stents S/P appendectomy S/P laparoscopic cholecystectomy Family History Daughter , age 57 Coronary heart disease Congestive heart failure Father , age 71 Heart disease Mother , age 77 Heart disease Diabetes Coronary heart disease s/p CABG Kidney disease ESRD was on dialysis Social History Smoking Status: Never smoker Hx Alcohol Use: No Hx Substance Use: No Preferred Language: Indonesian Communication Ability: Effective Industrial [employer] Required: No Beliefs That Will Affect Care: None marital status: Current Living Situation: Spouse Current Living Situation Comment: lives near [facility] current occupational status: retired current occupation: worked in [employer] nearly 40 years other: 3 children; 1 daughter is Feels Safe at Home: Yes Assistive Devices: None Allergies Allergies Allergy/AdvReac Type Severity Reaction Status Date / Time No Known Allergies Allergy Unverified 05/13/21 14:57 Home Meds Home Medications Medication Instructions Recorded Confirmed metformin 1,000 mg tablet 1,000 mg PO DAILY 08/15/19 08/30/21 aspirin 81 mg tablet,delayed 81 mg PO QAM 07/08/20 08/30/21 release (Stanislav Low Dose Aspirin) cyanocobalamin (vitamin B-12) 1,000 mcg SUBLINGUAL DAILY 07/08/20 08/30/21 1,000 mcg sublingual tablet Previous Rx's Medication Instructions Recorded amiodarone 200 mg tablet 200 mg PO DAILY #90 tab 05/13/21 Results & Data (ED) Vital Signs Vital Signs - 24 hr 08/30/21 13:33 08/30/21 13:52 08/30/21 14:48 Temperature 36.6 C Temperature Source Oral Pulse Rate 86 Pulse Rate [Apical] 86 58 L Pulse Rhythm [Apical] Pulse Strength [Apical] Respiratory Rate 18 16 16 Respiratory Effort / Characteristics Respiratory Depth Respiratory Pattern Blood Pressure 200/104 H Blood Pressure [Left Arm] 200/104 H 183/76 H Blood Pressure Mean 136 Blood Pressure Mean [Left Arm] 136 111 Blood Pressure Position [Left Arm] Pulse Oximetry 97 97 96 Oxygen Delivery Method Room Air Sepsis Recent Fever Within 48 Hours No Sepsis New/Unexplained Change in Mental Status N/A Sepsis Action Taken by Nursing No Action Required 08/30/21 16:46 Temperature Temperature Source Pulse Rate Pulse Rate [Apical] 71 Pulse Rhythm [Apical] Regular Pulse Strength [Apical] Normal Respiratory Rate 18 Respiratory Effort / Characteristics Non-Labored Spontaneous Respiratory Depth Normal Respiratory Pattern Regular Blood Pressure Blood Pressure [Left Arm] 188/87 H Blood Pressure Mean Blood Pressure Mean [Left Arm] 120 Blood Pressure Position [Left Arm] Sitting Pulse Oximetry 97 Oxygen Delivery Method Room Air Sepsis Recent Fever Within 48 Hours Sepsis New/Unexplained Change in Mental Status Sepsis Action Taken by Care Home Medications Current Medication List: was personally reviewed by me Laboratory Data Attestation: I reviewed the patient's lab results. Result diagrams: 08/30/21 14:09 08/30/21 14:09 Lab Results 08/30/21 08/30/21 08/30/21 Range/Units 14:09 14:09 14:09 WBC 15.35 H (4.8-10.8) K/uL RBC 4.16 L (4.2-5.4) M/uL Hgb 12.9 (12.0-16.0) g/dL Hct 37.9 (37-47) % MCV 91.1 (80-100) fL MCH 31.0 (25-34) pg MCHC 34.0 (32-36) g/dL RDW Std Deviation 48.6 H (36.4-46.3) fL RDW Coeff of Valerie 14.5 (11.5-14.5) % Plt Count 327 (130-400) K/uL MPV 11.2 H (7.4-10.4) fL Immature Gran % (Auto) 0.2 % Neut % (Auto) 70.2 % Lymph % (Auto) 22.9 % [place] % (Auto) 5.5 % Eos % (Auto) 0.7 % Baso % (Auto) 0.5 % Neut # (Auto) 10.78 H (1.4-6.5) K/uL Lymph # (Auto) 3.52 H (1.2-3.4) K/uL [place] # (Auto) 0.84 H (0.11-0.59) K/uL Eos # (Auto) 0.11 (0-0.5) K/uL Baso # (Auto) 0.07 (0-0.2) K/uL Immature Gran # (Auto) 0.03 H (0.00-0.02) K/uL PT 10.7 (9.0-12.0) Seconds INR 1.0 (0.9-1.1) APTT 21.7 (21.0-31.0) Seconds PTT Ratio 0.8 Sodium 137 (136-145) mmol/L Potassium 4.0 (3.5-5.1) mmol/L Chloride 103 (98-107) mmol/L Carbon Dioxide 23 (21-32) mmol/L Anion Gap 11 (3-11) BUN 18 (6-23) mg/dl Creatinine 1.68 H (0.6-1.2) mg/dl Est Cr Clr Drug Dosing 25.7 ml/min Est GFR ( Amer) 33.1 ml/min Est GFR (Non-Af Amer) 28.6 ml/min BUN/Creatinine Ratio 10.7 (10-20) Glucose 148 H (70-99(Fasting)) mg/dl Calcium 9.1 (8.5-10.1) mg/dl Magnesium 1.6 L (1.7-2.4) mg/dl Total Bilirubin 0.6 (0.2-1.0) mg/dl AST 21 (13-39) U/L ALT 10 (7-52) U/L Alkaline Phosphatase 65 (34-104) U/L Troponin I High Sens 10.3 (0-14) pg/ml Total Protein 7.6 (6.0-8.3) gm/dl Albumin 4.1 (3.4-5.0) gm/dl Globulin 3.5 (2.5-4.0) gm/dl Albumin/Globulin Ratio 1.2 (0.9-2) TSH (0.300-4.500) uIu/ml SARS-CoV-2, RNA, NAAT (NEGATIVE) 08/30/21 08/30/21 Range/Units 14:09 17:23 WBC (4.8-10.8) K/uL RBC (4.2-5.4) M/uL Hgb (12.0-16.0) g/dL Hct (37-47) % MCV (80-100) fL MCH (25-34) pg MCHC (32-36) g/dL RDW Std Deviation (36.4-46.3) fL RDW Coeff of Valerie (11.5-14.5) % Plt Count (130-400) K/uL MPV (7.4-10.4) fL Immature Gran % (Auto) % Neut % (Auto) % Lymph % (Auto) % [place] % (Auto) % Eos % (Auto) % Baso % (Auto) % Neut # (Auto) (1.4-6.5) K/uL Lymph # (Auto) (1.2-3.4) K/uL [place] # (Auto) (0.11-0.59) K/uL Eos # (Auto) (0-0.5) K/uL Baso # (Auto) (0-0.2) K/uL Immature Gran # (Auto) (0.00-0.02) K/uL PT (9.0-12.0) Seconds INR (0.9-1.1) APTT (21.0-31.0) Seconds PTT Ratio Sodium (136-145) mmol/L Potassium (3.5-5.1) mmol/L Chloride (98-107) mmol/L Carbon Dioxide (21-32) mmol/L Anion Gap (3-11) BUN (6-23) mg/dl Creatinine (0.6-1.2) mg/dl Est Cr Clr Drug Dosing ml/min Est GFR ( Amer) ml/min Est GFR (Non-Af Amer) ml/min BUN/Creatinine Ratio (10-20) Glucose (70-99(Fasting)) mg/dl Calcium (8.5-10.1) mg/dl Magnesium (1.7-2.4) mg/dl Total Bilirubin (0.2-1.0) mg/dl AST (13-39) U/L ALT (7-52) U/L Alkaline Phosphatase (34-104) U/L Troponin I High Sens (0-14) pg/ml Total Protein (6.0-8.3) gm/dl Albumin (3.4-5.0) gm/dl Globulin (2.5-4.0) gm/dl Albumin/Globulin Ratio (0.9-2) TSH 2.766 (0.300-4.500) uIu/ml SARS-CoV-2, RNA, NAAT NEGATIVE (NEGATIVE) Administered Medications Lactated Ringer's (Lr) 1,000 mls @ 125 mls/hr IV .Q8H HAFSA Stop: 09/29/21 21:25 Last Admin: 08/30/21 21:42 Dose: 125 mls/hr Documented by: [id number] Magnesium Sulfate/Dextrose (Magnesium Sulfate / D5w) 1 gm in 100 mls @ 50 mls/hr IV ONE ONE Stop: 08/30/21 23:44 Last Admin: 08/30/21 21:42 Dose: 50 mls/hr Documented by: [id number] Discontinued Medications Sodium Chloride (Nss 1000ml) 500 mls @ 999 mls/hr IV .Q31M ONE Stop: 08/30/21 16:09 Last Infusion: 08/30/21 16:16 Dose: 0 mls/hr Documented by: [id number] Admin: 08/30/21 15:46 Dose: 999 mls/hr Documented by: [id number] Ceftriaxone Sodium (Rocephin) 2,000 mg in 70 mls @ 140 mls/hr IV NOW STA Stop: 08/30/21 16:08 Last Infusion: 08/30/21 16:19 Dose: 0 mls/hr Documented by: [id number] Admin: 08/30/21 15:45 Dose: 140 mls/hr Documented by: [id number] Magnesium Sulfate/Dextrose (Magnesium Sulfate / D5w) 1 gm in 100 mls @ 100 mls/hr IV NOW STA Stop: 08/30/21 16:38 Last Infusion: 08/30/21 17:17 Dose: 0 mls/hr Documented by: [id number] Admin: 08/30/21 16:17 Dose: 100 mls/hr Documented by: [id number] Promethazine HCl (Phenergan) 12.5 mg in 50.5 mls @ 202 mls/hr IV NOW STA Stop: 08/30/21 17:15 Last Infusion: 08/30/21 18:48 Dose: 0 mls/hr Documented by: [id number] Admin: 08/30/21 17:22 Dose: 202 mls/hr Documented by: [id number] Lactated Ringer's (Lr) 500 mls @ 999 mls/hr IV .Q31M ONE Stop: 08/30/21 18:51 Last Infusion: 08/30/21 20:14 Dose: 0 mls/hr Documented by: [id number] Admin: 08/30/21 19:25 Dose: 999 mls/hr Documented by: [id number] Ondansetron HCl (Ondansetron Inj 2 Mg/Ml 2 Ml Vial) 4 mg IV NOW STA Stop: 08/30/21 14:04 Last Admin: 08/30/21 14:12 Dose: 4 mg Documented by: [id number] Ondansetron HCl (Ondansetron Inj 2 Mg/Ml 2 Ml Vial) 4 mg IV NOW STA Stop: 08/30/21 16:39 Last Admin: 08/30/21 16:44 Dose: 4 mg Documented by: [id number] Imaging Data Radiologist's Impression: Chest X-Ray 08/30/21 14:03 XR chest 1V portable HISTORY: 80 years-old Female vomiting acute nausea with vomiting COMPARISON: Chest radiograph 04/11/2021 TECHNIQUE: Portable AP view of the chest FINDINGS: The cardiac silhouette is enlarged. A loop recorder device is present. There is no pneumothorax, pleural effusion, airspace consolidation or overt pulmonary edema. Coronary arterial stenting. Degenerative changes of the shoulders and spine. IMPRESSION: No acute process. ACT 112: Negative or not required by law. The above report was generated using voice recognition software. It may contain grammatical, syntax or spelling errors. Electronically signed by: Jones Driver M.D. 08/30/2021 2:[address] 08/30/21 14:03 CT OF THE HEAD WITHOUT CONTRAST CLINICAL HISTORY: Vertigo. COMPARISON STUDY: Head CT April 11, 2021. CT DOSE: 729.78 mGycm TECHNIQUE: Helical axial images of the head were obtained without IV contrast. Automated exposure control was utilized for the study. A dose lowering te chnique was utilized adhering to the principles of ALARA. FINDINGS: No acute intracranial hemorrhage, midline shift or mass effect is present. The ventricular system is unremarkable. The basal cisterns are patent. No extra-axial collections are present. 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 There are no findings to suggest acute dural sinus thrombosis or acute territorial infarct. No significant calvarial abnormalities are present. A small amount of fluid within the bilateral mastoid air cells is similar to head CT April 11, 2021. There are small air-fluid levels within the bilateral maxillary sinuses with mucosal thickening. This finding is new since prior CT. IMPRESSION: 1. No acute intracranial findings. 2. Small air-fluid levels within the bilateral maxillary sinuses with mucosal thickening. This suggests acute sinusitis. ACT 112: Negative or not required by law. Electronically signed by: Ej Valerio M.D. 08/30/2021 2:47 PM Discharge Plan Visit Data Chief Complaint: Nausea Stated Complaint: nausea ED Provider: Maynor Lubin Discharge Problem: Vertigo, Hypomagnesemia, BRENNAN (acute kidney injury), Vomiting, Sinusitis Patient Disposition: Admitted As Inpatient Discharge Instructions Interventions: ED Discharge Assessment Last Done: 08/30/21 20:19 Discharge Problem: Vomiting Qualifiers: Vomiting type: unspecified Nausea presence: with nausea Qualified Code(s): R11.2 - Nausea with vomiting, unspecified Sinusitis Qualifiers: Sinusitis location: unspecified location Chronicity: acute Recurrence: not specified as recurrent Qualified Code(s): J01.90 - Acute sinusitis, unspecified
[2021-08-30 14:26] LABS: Basophils # (auto) 0.07 K/uL (0-0.2); Basophils % (auto) 0.5 %; Eosinophils # (auto) 0.11 K/uL (0-0.5); Eosinophils % (auto) 0.7 %; Hematocrit (blood only) 37.9 % (37-47); Hemoglobin 12.9 g/dL (12.0-16.0); Immature Granulocytes # (auto) 0.03 K/uL (0.00-0.02); Immature Granulocytes % (auto) 0.2 %; Lymphocytes # (auto) 3.52 K/uL (1.2-3.4); Lymphocytes % (auto) 22.9 %; Mean Corpuscular Volume 91.1 fL (80-100); Mean Platelet Volume 11.2 fL (7.4-10.4); Monocytes # (auto) 0.84 K/uL (0.11-0.59); Monocytes % (auto) 5.5 %; Neutrophils # (auto) 10.78 K/uL (1.4-6.5); Neutrophils % (auto) 70.2 %; Platelet Count 327 K/uL (130-400); RDW Coefficient of Variation 14.5 % (11.5-14.5); RDW Standard Deviation 48.6 fL (36.4-46.3); Red Blood Count 4.16 M/uL (4.2-5.4); White Blood Count 15.35 K/uL (4.8-10.8)
--- NOTE | 2021-08-30 14:29 | XRay Report ---
XR chest 1V portable HISTORY: 80 years-old Female vomiting acute nausea with vomiting COMPARISON: Chest radiograph 04/11/2021 TECHNIQUE: Portable AP view of the chest FINDINGS: The cardiac silhouette is enlarged. A loop recorder device is present. There is no pneumothorax, pleu ral effusion, airspace consolidation or overt pulmonary edema. Coronary arterial stenting. Degenerati ve changes of the shoulders and spine. IMPRESSION: No acute process. ACT 112: Negative or not required by law. The above report was generated using voice recognition software. It may contain grammatical, syntax o r spelling errors. Electronically signed by: Jones Driver M.D. 08/30/2021 2:27 PM
[2021-08-30 14:45] LABS: Albumin Globulin Ratio 1.2 (0.9-2); Albumin Level 4.1 gm/dl (3.4-5.0); BUN Creatinine Ratio 10.7 (10-20); Bilirubin,Total 0.6 mg/dl (0.2-1.0); Calcium 9.1 mg/dl (8.5-10.1); Creatinine Clr Calc Pharmacy 25.7 ml/min; Est GFR (African American) 33.1 ml/min; Est GFR (Non-African American) 28.6 ml/min; Globulin 3.5 gm/dl (2.5-4.0); Magnesium 1.6 mg/dl (1.7-2.4); Total Protein 7.6 gm/dl (6.0-8.3)
--- NOTE | 2021-08-30 14:48 | CT Scan Report ---
CT OF THE HEAD WITHOUT CONTRAST CLINICAL HISTORY: Vertigo. COMPARISON STUDY: Head CT April 11, 2021. CT DOSE: 729.78 mGycm TECHNIQUE: Helical axial images of the head were obtained without IV contrast. Automated exposure con trol was utilized for the study. A dose lowering technique was utilized adhering to the principles o f ALARA. FINDINGS: No acute intracranial hemorrhage, midline shift or mass effect is present. The ventricular system is unremarkable. The basal cisterns are patent. No extra-axial collections are present. 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 There are no findings to sugges t acute dural sinus thrombosis or acute territorial infarct. No significant calvarial abnormalities a re present. A small amount of fluid within the bilateral mastoid air cells is similar to head CT Febr 2021. There are small air-fluid levels within the bilateral maxillary sinuses with mucosal t hickening. This finding is new since prior CT. IMPRESSION: 1. No acute intracranial findings. 2. Small air-fluid levels within the bilateral maxillary sinuses with mucosal thickening. This sugges ts acute sinusitis. ACT 112: Negative or not required by law. Electronically signed by: Ej Valerio M.D. 08/30/2021 2:47 PM
[2021-08-30 14:49] LABS: Troponin I High Sensitivity 10.3 pg/ml (0-14)
[2021-08-30 14:51] LABS: Partial Thromboplastin Ratio 0.8; Partial Thromboplastin Time 21.7 Seconds (21.0-31.0); Prothrombin Time 10.7 Seconds (9.0-12.0)
[2021-08-30] MEDS ORDERED: SODIUM CHLORIDE 0.9% 1000ML 500 ML IV ONE (15:39)
[2021-08-30] MEDS ORDERED: cefTRIAXone SODIUM 2,000 MG/70 ML BAG IV STA (15:39)
[2021-08-30] MEDS ORDERED: MAGNESIUM SULFATE / D5W 1 GM/100 ML BAG IV STA (15:39)
--- NOTE | 2021-08-30 16:59 | Electrocardiogram Report ---
Test Reason : Blood Pressure : / mmHG Vent. Rate : 061 BPM Atrial Rate : 061 BPM P-R Int : 234 ms QRS Dur : 102 ms QT Int : 460 ms P-R-T Axes : 077 005 120 degrees QTc Int : 463 ms Sinus rhythm with sinus arrhythmia with 1st degree A-V block Nonspecific ST and T wave abnormality Lateral leads Nonspecific T wave abnormality Anterior leads Abnormal ECG When compared with ECG of 12-APR-2021 09:15, Premature ventricular complexes are no longer Present HI interval has increased T wave inversion now evident in Anterolateral leads Confirmed by Isaac Castillo ([id number]) on 08/30/2021 4:58:55 PM Referred By: REFERRED SELF Confirmed By:Isaac Castillo
[2021-08-30] MEDS ORDERED: PROMETHAZINE 12.5 MG/50.5 ML BAG IV STA (17:01)
--- NOTE | 2021-08-30 18:02 | History & Physical Report ---
Date of Service August 30, 2021 Assessment & Plan (1) Pre-syncope: Plan: Multiple episodes of similar symptoms thought to be vagally mediated and likely more at risk currently due to current acute sinusitis Since brain MRI not previously performed and concurrent hypertension and not definitively vagal related recorded on loop recorder as far as I can tell will get Brain MRI to make sure not CVA related and more vertiginous. I am also unclear what is causing her persistent nausea and vomiting which is more consistent with vertigo. Otherwise will treat sinusitis and hydrate with IV fluids (LR @ 125ml/hr) which has resolved symptoms in the past. No indication for CT A/P on admission given lack of abdominal pain or change in bowel movements, however could consider this if persistent. (2) Intractable nausea and vomiting: Plan: Ondansetron 4mg IV q4h PRN Consider CT A/P if persistent Clear liquid diet Advance diet as tolerated (3) Sinusitis: Plan: 2 weeks of symptoms. Ceftriaxone given in the ER. Will switch to Unasyn as patient currently unable to take PO meds. Switch to Augmentin on discharge. (4) Hypomagnesemia: Plan: Mg sulphate 1g IV given in ER, additional 1g when admitted to the floor. Suspect due to vomiting. Repeat level in AM. (5) Encounter for interrogation of cardiac recorder: Plan: Loopd recorder interrogation pending for arrhythmia at time of lightheadedness Plan: VTE Prophylaxis - low risk, deferred on admission Diet - clear liquids, advance diet as tolerated Disposition - observation status to med/tele Admission and Anticipated Discharge Date Admission Date: August 30, 2021 History of Present Illness Chief Complaint: Presyncope, intractable nausea and vomiting Primary Care Provider: Marlin Rowe MD Arlene Vicente is a 80 year old female who presents to the ER with sudden onset dizziness, nausea and vomiting. Symptoms started suddenly at dinner time. ER notes she reports a history of vertigo although she denies this to me. She reports a history of similar attacks of lightheadedness, dizziness and feeling like she is going to faint. She has a longstanding loop recorder implanted for this reason. Most recently she was hospitalized for the same in April 2021 but has had many similar episodes in the past. Per cardiology visit following that hospitalization the etiology is suspected to be an exaggerated vagal effect with loop recorder showing no obvious bradycardic or tachyarrhythmia episode during these events. She denies any room spinning sensation or motion sickness feeling. Her lightheadedness is better on sitting down. It is usually associated with nausea and vomiting but without abdominal pain or diarrhea. Usually lasts for around 15 minutes however on this occasion the vomiting has been more persistent. She denies any facial droop, extremity weakness or change in sensation, change in vision, hearing or speech. CT head did not show any acute intracranial pathology however was concerning for acute sinusitis. She reports having sinus disease for the last 2 weeks but no fever or chills and this has been more persistent than usual but she has neglected to see her PCP that she usually would as her daughter has been unwell and is currently hospitalized at [facility]. Due to intractable vomiting she was referred to medicine for admission and ongoing management of sinusitis, vertigo and intractable vomiting. Allergies Allergy/AdvReac Type Severity Reaction Status Date / Time No Known Allergies Allergy Unverified 05/13/21 14:57 Home Medications Medication Instructions Recorded Confirmed Type metformin 1,000 mg tablet 1,000 mg PO DAILY 08/15/19 08/30/21 History aspirin 81 mg tablet,delayed 81 mg PO QAM 07/08/20 08/30/21 History release (Stanislav Low Dose Aspirin) cyanocobalamin (vitamin B-12) 1,000 mcg SUBLINGUAL DAILY 07/08/20 08/30/21 History 1,000 mcg sublingual tablet amiodarone 200 mg tablet 200 mg PO DAILY #90 tab 05/13/21 08/30/21 Rx Past Med/Surg History Medical History CAD (coronary artery disease) Previously followed with Dr Lombardi - cardiology in [place]. s/p stents in: 2007 (twice), 2008, 2010, 2018. All @ [facility]. DM w/o complication type II Essential hypertension Frequent PVCs Near syncope Right leg DVT 03/2019 - treated 3 months with eliquis (provoked by arthroscopic knee surgery) Status post placement of implantable loop recorder Syncope Ventricular bigeminy Surgical History H/O arthroscopy of right knee H/O: hysterectomy History of coronary artery stent placement 5 stents S/P appendectomy S/P laparoscopic cholecystectomy Family History Daughter , age 57 Coronary heart disease Congestive heart failure Father , age 71 Heart disease Mother , age 77 Heart disease Diabetes Coronary heart disease s/p CABG Kidney disease ESRD was on dialysis Social History Smoking Status: Never smoker Second Hand Exposure: No; Do You Dip or Chew Tobacco: No; Hx Alcohol Use: No Hx Substance Use: No Preferred Language: Vietnamese Communication Ability: Effective Extrusion Operator Required: No Beliefs That Will Affect Care: None marital status: Current Living Situation: Spouse Current Living Situation Comment: Lives at home w/ spouse current occupational status: retired current occupation: worked in [employer] nearly 40 years Other Information That Helps Us Care for You: No other: 3 children; 1 daughter is Feels Safe at Home: Yes Safety Concerns: Feels Safe At This Time Assistive Devices: Hearing Aid - Bilateral Physical Exam Constitutional: WD/WN, vitals as above no acute distress Eyes: PERRL, conjunctivae normal, anicteric sclerae ENMT: external ear and nose normal, oropharynx normal Neck: trachea midline, no thyromegaly Respiratory: normal respiratory effort, lungs clear to auscultation Cardiovascular: RRR, no murmur, no edema Gastrointestinal (Abdomen): normal bowel sounds, soft, nontender, no hepatosplenomegaly Musculoskeletal: no cyanosis or clubbing, extremities motor strength 5/5 Skin: no rashes, warm and dry Neurologic: moves all extremities and awake; no focal motor deficits and not confused Cranial Nerves: PERRL, EOM intact bilaterally, normal facial strength, tongue midline, able to rotate head bilaterally, able to elevate shoulders bilaterally, no nystagmus and symmetric palate elevation Psychiatric: A+Ox3, euthymic affect Results & Data Results & Data ([facility]) Vital Signs (Past 12 Hours) Vital Signs Temp Pulse Pulse Resp BP BP Pulse Ox 08/30/21 16:46 71 18 188/87 H 97 08/30/21 14:48 58 L 16 183/76 H 96 08/30/21 13:52 86 16 200/104 H 97 08/30/21 13:33 36.6 C 86 18 200/104 H 97 Diagnostic Findings XR chest 1V portable HISTORY: 80 years-old Female vomiting acute nausea with vomiting COMPARISON: Chest radiograph 04/11/2021 TECHNIQUE: Portable AP view of the chest FINDINGS: The cardiac silhouette is enlarged. A loop recorder device is present. There is no pneumothorax, pleural effusion, airspace consolidation or overt pulmonary edema. Coronary arterial stenting. Degenerative changes of the shoulders and spine. IMPRESSION: No acute process. CT OF THE HEAD WITHOUT CONTRAST CLINICAL HISTORY: Vertigo. COMPARISON STUDY: Head CT April 11, 2021. CT DOSE: 729.78 mGycm TECHNIQUE: Helical axial images of the head were obtained without IV contrast. Automated exposure control was utilized for the study. A dose lowering technique was utilized adhering to the principles of ALARA. FINDINGS: No acute intracranial hemorrhage, midline shift or mass effect is present. The ventricular system is unremarkable. The basal cisterns are patent. No extra-axial collections are present. 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 There are no findings to suggest acute dural sinus thrombosis or acute territorial infarct. No significant calvarial abnormalities are present. A small amount of fluid within the bilateral mastoid air cells is similar to head CT April 11, 2021. There are small air-fluid levels within the bilateral maxillary sinuses with mucosal thickening. This finding is new since prior CT. IMPRESSION: 1. No acute intracranial findings. 2. Small air-fluid levels within the bilateral maxillary sinuses with mucosal thickening. This suggests acute sinusitis. Medications Administered ER Medications Given: Ondansetron 4mg IV NSS 500ml bolus Ceftriaxone 2g IV Magnesium sulphate 1g IV Ondansetron 4mg IV Promethazine 12.5mg IV ECG Indication: syncope Rate (beats per minute): 61 Rhythm: normal sinus Findings: + 1st degree AV block and + nonspecific-ST abn (Lateral) Comparison ECG Date: from (Apr 12, 2021) Change: the following changes noted (TWI in anterolateral leads) Code Status & VTE Plan Code Status Full VTE Prophylaxis Plan VTE Prophylaxis will be ordered: No Reason for no VTE drug order: Treatment not indicated Reason for no VTE mechanical prophylaxis: Treatment not indicated PG Care Time/CCT Total # of Minutes Spent Total Time Spent with Patient: Total time spent is greater than 50% in coordination of care (as documented) at patient's floor/unit and/or counseling patient: Coding Level of Care Code INT OBSERVATION CARE 70M LVL 3 Diagnoses Hypomagnesemia E83.42 Sinusitis J01.90 Chronicity: acute Recurrence: not specified as recurrent Sinusitis location: unspecified location Encounter for interrogation of cardiac recorder Z45.09 Pre-syncope R55 Intractable nausea and vomiting R11.2 (1) Sinusitis Chronicity: acute Recurrence: not specified as recurrent Sinusitis location: unspecified location Qualified Code(s): J01.90 - Acute sinusitis, unspecified
[2021-08-30] MEDS ORDERED: LACTATED RINGER'S 500 ML IV ONE (18:21)
[2021-08-30] MEDS ORDERED: ONDANSETRON INJ 2 MG/ML 2 ML VIAL IV PRN (21:26)
[2021-08-30] MEDS ORDERED: ACETAMINOPHEN 325 MG TAB PO PRN (21:26)
[2021-08-30] MEDS: LACTATED RINGER'S 1,000 ML IV SCH (21:42)
[2021-08-30] MEDS ORDERED: MAGNESIUM SULFATE / D5W 1 GM/100 ML BAG IV ONE (21:45)
[2021-08-30] MEDS: AMPICILLIN/SULBACTAM SOD 3,000 MG in 0.9 % SODIUM CHLORIDE 100 ML IV SCH (22:12)
[2021-08-30] MEDS ORDERED: CLOPIDOGREL BISULFATE 300 MG TAB PO ONE (22:16)
[2021-08-30] MEDS ORDERED: PHARMACIST DISCHARGE MED REC CONSULT PRN (22:16)
[2021-08-31] MEDS: AMPICILLIN/SULBACTAM SOD 3,000 MG in 0.9 % SODIUM CHLORIDE 100 ML IV SCH ×3 (03:20→20:54)
[2021-08-31] MEDS: LACTATED RINGER'S 1,000 ML IV SCH ×3 (05:42→22:00)
[2021-08-31 06:41] LABS: Basophils # (auto) 0.05 K/uL (0-0.2); Basophils % (auto) 0.4 %; Eosinophils # (auto) 0.14 K/uL (0-0.5); Eosinophils % (auto) 1.3 %; Hematocrit (blood only) 33.5 % (37-47); Hemoglobin 11.2 g/dL (12.0-16.0); Immature Granulocytes # (auto) 0.01 K/uL (0.00-0.02); Immature Granulocytes % (auto) 0.1 %; Lymphocytes # (auto) 2.49 K/uL (1.2-3.4); Lymphocytes % (auto) 22.3 %; Mean Corpuscular Hemoglobin 30.5 pg (25-34); Mean Corpuscular Hgb Conc 33.4 g/dL (32-36); Mean Corpuscular Volume 91.3 fL (80-100); Mean Platelet Volume 10.7 fL (7.4-10.4); Monocytes # (auto) 0.68 K/uL (0.11-0.59); Monocytes % (auto) 6.1 %; Neutrophils # (auto) 7.79 K/uL (1.4-6.5); Neutrophils % (auto) 69.8 %; Platelet Count 307 K/uL (130-400); RDW Coefficient of Variation 14.5 % (11.5-14.5); RDW Standard Deviation 48.7 fL (36.4-46.3); Red Blood Count 3.67 M/uL (4.2-5.4); White Blood Count 11.16 K/uL (4.8-10.8)
[2021-08-31 06:57] LABS: Albumin Globulin Ratio 1.2 (0.9-2); Albumin Level 3.2 gm/dl (3.4-5.0); BUN Creatinine Ratio 9.5 (10-20); Bilirubin,Total 0.6 mg/dl (0.2-1.0); Calcium 8.2 mg/dl (8.5-10.1); Chol HDL Ratio 2.4 (0-5); Creatinine Clr Calc Pharmacy 27.2 ml/min; Est GFR (African American) 38.6 ml/min; Est GFR (Non-African American) 33.3 ml/min; Globulin 2.6 gm/dl (2.5-4.0); Potassium 4.3 mmol/L (3.5-5.1); Total Protein 5.8 gm/dl (6.0-8.3)
[2021-08-31 07:43] LABS: Estimated Average Glucose 126 mg/dl
--- NOTE | 2021-08-31 07:43 | Hospitalist Progress Note ---
Date of Service August 31, 2021 Assessment & Plan (1) Pre-syncope: Plan: Multiple episodes of similar symptoms thought to be vagally mediated does have concurrent acute sinusitis ECG shows first degree block and some t wave inversions, elevated high sensitivity troponin, will trend and check Echo Brain MRI shows punctate cerebellar infarts with minimal associated edema, will treat as acute CVA not definitively vagal related recorded on loop recorder (2) Elevated troponin: Plan: pt with high sensitivity trop up to 45 from 10 non specific ECG changes could sx be angina, check echo and have cardilogy eval asa is able to take po (3) Intractable nausea and vomiting: Plan: Ondansetron 4mg IV q4h PRN (4) Sinusitis: Plan: 2 weeks of symptoms. Ceftriaxone given in the ER. Will switch to Unasyn as patient currently unable to take PO meds. Switch to Augmentin on discharge. (5) Hypomagnesemia: Plan: Replete (6) Encounter for interrogation of cardiac recorder: Plan: Loop recorder interrogation pending for arrhythmia at time of lightheadedness Plan: VTE Prophylaxis - low risk, deferred on admission Diet - advance diet as tolerated Disposition - observation status to med/tele Admission and Anticipated Discharge Date Admission Date: August 30, 2021 Subjective pt has had resolution of symptoms, upon further questoining although she does have sinus sx and imaging to support, she also has exertional symptoms and has significant cardiac history with elevated troponin. will trend troponin and check echo, neuro suggests changing to plavix for possible secondary prevenion of cerebrovasc disease. Pt is agreeable to stay for work up Review of Systems Review of Systems: Mild distress and fatigue does describe reproducible exertional symptoms but also symptoms at rest no headache, no visual changes no speech or swallowing issues no chest pain, pressure or palpitations Dyspnea on exertion and cough due to sinus drainage no abdominal pain, nausea or vomiting, diarrhea or constipation no dysuria, hematuria or frequency no focal joint pain or swelling no back pain, CVA tenderness or radicular pain no bruising, bleeding or rashes no focal signs of weakness or numbness or altered sensation no complaints of anxiety or depression.. Physical Exam Physical Exam: The patient appeared well nourished and normally developed. Vital signs as documented. Head exam is normocephalic atraumatic Neck is without JVD, thyromegaly, or carotid bruits. Lungs are clear to auscultation, no focal loss of breath sounds Cardiac exam, Rhythm is regular.. No murmurs, rubs or gallops. Abdominal exam reveals normal bowel sounds, soft non tender, no masses Extremities are nonedematous and both pedal pulses are present Neurologic exam is alert and oriented, no focal loss of strength or sensation Skin is without bruises or rashes Psychologically is without concerns for anxiety or depression.. Results & Data Results & [facility] ([facility]) Vital Signs (Past 12 Hours) Vital Signs Temp Pulse Pulse Pulse Resp BP Pulse Ox 08/31/21 07:19 97.9 F 57 L 16 129/70 95 08/31/21 04:32 97.7 F 57 L 18 147/72 H 95 08/30/21 23:08 97.5 F L 65 18 153/65 H 98 08/30/21 22:23 57 L 08/30/21 21:27 68 08/30/21 21:23 97.7 F 63 18 167/67 H 97 Pulse Ox 08/31/21 07:19 08/31/21 04:32 08/30/21 23:08 08/30/21 22:23 08/30/21 21:27 08/30/21 21:23 97 PG Care Time/CCT Total # of Minutes Spent Total Time Spent with Patient: Total time spent is greater than 50% in coordination of care (as documented) at patient's floor/unit and/or counseling patient: Coding Level of Care Code 54454 Subseq Hosp Care Lvl 3 Diagnoses Pre-syncope R55 Intractable nausea and vomiting R11.2 Sinusitis J01.90 Chronicity: acute Recurrence: not specified as recurrent Sinusitis location: unspecified location Hypomagnesemia E83.42 Encounter for interrogation of cardiac recorder Z45.09 Elevated troponin R77.8 (1) Sinusitis Chronicity: acute Recurrence: not specified as recurrent Sinusitis location: unspecified location Qualified Code(s): J01.90 - Acute sinusitis, unspecified
[2021-08-31] MEDS: CLOPIDOGREL BISULFATE 75 MG TAB PO SCH (07:57)
[2021-08-31] MEDS: CYANOCOBALAMIN (B-12) 500 MCG TABLET PO SCH (07:58)
[2021-08-31] MEDS: AMIODARONE 200 MG TAB PO SCH (07:59)
[2021-08-31] MEDS: ASPIRIN 81 MG ECTAB PO SCH (07:59)
--- NOTE | 2021-08-31 08:31 | Magnetic Resonance Report ---
MR brain wo con CLINICAL HISTORY: sudden onset vertigo r/o CVA TECHNIQUE: Multiplanar and multisequence MR images of the brain were obtained without intravenous con trast. Comparison: Comparison is made to CT head 08/30/2021 FINDINGS: There are punctate foci of restricted diffusion in the left cerebellum with minimal associated edema. Foci of T2 and FLAIR hyperintensity are noted in the paraventricular areas consistent with chronic s mall vessel ischemic disease. The ventricular system is normal in appearance. No mass is seen. There is no mass effect or midline shift. There is no evidence of acute intraparenchymal hemorrhage. No ext ra axial fluid collections are seen. The corpus callosum, pituitary gland, and cerebellar tonsils alesha ear grossly unremarkable. Flow voids of the major intracranial arterial vessels are identified. Soft tissue thickening is seen in the bilateral maxillary sinuses as well as in multiple ethmoid air cells. Mild mastoid air cell op acification is. 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 Sinus disease i s seen most prominent in the maxillary sinuses. Mild mastoiditis. ACT 112: Negative or not required by law. Electronically signed by: Efren Galvez M.D. 08/31/2021 8:29 AM
[2021-08-31] MEDS ORDERED: PERFLUTREN LIPID MICROSPHERE (DEFINITY) IV ONE (08:44)
--- NOTE | 2021-08-31 16:45 | Cardiology Consultation ---
Date of Consultation August 31, 2021 Assessment & Plan (1) Elevated troponin: (2) Dyspnea on exertion: (3) CAD (coronary artery disease): (4) History of coronary artery stent placement: (5) Frequent PVCs: (6) Essential hypertension: (7) Intractable nausea and vomiting: (8) Pre-syncope: ASSESSMENT/PLAN: 1. Elevated troponin: High sensitivity troponin has been trending upward. She did not present with symptoms concerning for angina or acute coronary syndrome. Elevated troponin could be due to severe hypertension as her systolic blood pressure on presentation was 200. Troponin elevation could be due to stroke. She also has known CAD, but once again did not present with acute coronary syndrome so would not pursue ischemic evaluation at this time given that she presented with stroke. Trend troponin until peak. Echo evaluation is pending. Repeat ECG. 2. Dyspnea with exertion: She appears euvolemic. Ischemic symptoms in the past presented as dyspnea. Given that she presented with stroke on MRI, would not pursue ischemic evaluation at this time as she has no rest symptoms and did not present with symptoms concerning for ischemic heart disease, but rather over the past 1-2 months. Can pursue noninvasive ischemic evaluation as an outpatient. Consider nitrate therapy to see if it improves her symptoms in the meantime. 3. CAD s/p PCI x 5: No anginal symptoms as part of this presentation. Dyspnea with exertion may be anginal equivalent as noted above. Continue aspirin 81 mg daily indefinitely. Beta-medardo has been replaced with amiodarone by electrophysiology and she has mild bradycardia. She has not tolerated statin therapy. LDL has been well controlled and < 70. 4. Frequent PVCs: On amiodarone as per her primary membership sales representative, Dr. Trejo. 5. Nausea/vomiting with near syncope: Near-syncope tends to follow episodes of vomiting that come without much warning. This is not a new issue for her however she has had several episodes over the past few months. Perhaps cerebellar insult noted on MRI is related to these symptoms. Loop recorder in the past has not noted any arrhythmia issues to suggest arrhythmia as part of her near-syncope. Perhaps the vomiting increases her vagal tone which leads to near-syncope. 6. Stroke: Notified patient of MRI findings. Would defer stroke management to primary service and Neurology. Neurology had been consulted by primary service. CTA of the neck was unremarkable in April. 7. Hypertension: Blood pressure currently well controlled but she was significantly hypertensive on presentation. If blood pressure becomes elevated and remains such, would consider amlodipine which could also act as an antianginal if her dyspnea is related to ischemic heart disease. Would follow parameters as per Neurology or primary hospitalist service given her stroke presentation. 8. Disposition: Patient care communicated with Dr. Blackwell of the primary hospitalist service. On discharge she should follow-up with Dr. Trejo, her primary membership sales representative, who can arrange ischemic evaluation if felt to be necessary at that time, depending on her clinical course. Thank you for allowing me to participate in the care of your patient. Please call for any other questions or concerns. Sincerely, Emile Peterson M.D. History of Present Illness Reason for Consultation: Elevated trop, h/o stents, possible exertional sx" Requesting Physician: Harshad Blackwell MD Attending Physician: Harshad Blackwell MD History of Present Illness Ms Vicente is a pleasant 80-year-old female with a history significant for frequent PVCs, CAD s/p PCI x 5, type 2 diabetes, anemia, and recurrent near syncope s/p loop recorder placement. Her primary membership sales representative is Dr. Trejo. Prior to her multiple PCI, her exertional symptom was dyspnea. She has had the following studies/procedures: 1. Cardiac catheterization 08/08/2007 [place]: Diagonal PCI with 2.5 by 8 mm Cypher. 2. Cardiac catheterization 09/02/2007 [place]: Circumflex PCI with 2.5 x 12 mm taxus. 3. Cardiac catheterization 08/18/2008 [place]: OM PCI with 2.5 x 23 mm promus. 4. Cardiac catheterization 03/24/2011 [place] PCI of unclear vessel with 2.25 x 8 mm Promus. 5. Cardiac catheterization 11/06/2017 [place]: Lad PCI with 2.5 x 23 mm Xience. 6. Echo 07/09/2020 [facility]: Normal LV size, wall motion, systolic function. EF 60-65%. Moderate LVH. Mildly dilated RV with normal systolic function. Severe biatrial dilation. Mild MR. RVSP 22. 7. Loop recorder placement 07/10/2020 [facility]: Dr. Trejo She presented and was admitted on 08/30/2021 after yet another episode of acute nausea, vomiting, diaphoresis, and near-syncope. She was hospitalized in April of 2021 with same symptoms. Since that hospital stay, she had 3 other episodes leading up to this particular episode. She was standing and the epis ode came without warning. Episodes in the past have occurred while sitting. She has a loop recorder in place and although not interrogated at this time, her other episodes did not correlate with cardiac etiology. She has been noted to have mild bradycardia with heart rate in the 50s during episodes and the thought by electrophysiology that these symptoms may be vagal. On presentation, she underwent brain MRI which reported cerebellar stroke. She denies actual syncope. She denies chest pain with this episode. She has had an ache in her intrascapular area and sometimes in her left breast at times, but only at rest lasting approximately 1 minute. She has not had any chest discomfort related to this presentation. She has dyspnea with exertion while walking up a gentle incline to get her mail over the past 1-2 months. The symptom has been stable since then and she denies shortness of breath at rest. She did not have her exertional dyspnea as part of her presentation. In the past, she has tried statin therapies and did not tolerate them. She does not recall trying Zetia or PCSK9 inhibitor. She has her lipids monitored through her PCP. She denies melena, hematochezia, hematuria, or other bleeding. Amiodarone was initiated by her cloud automation tester, Dr. Trejo, in an attempt to reduce her PVC burden, to see if with suppression of PVCs if her near syncopal episodes resolve. She denies palpitations. Review of systems:As above. Review of systems otherwise negative/unremarkable. Family history:Father and mother had CAD. Daughter with significant CAD. Social history: She denies tobacco, alcohol, or drug abuse. She had 3 children but 1 . She lives at home with her . She has grandchildren. She was unaccompanied in her hospital room. Allergies Allergy/AdvReac Type Severity Reaction Status Date / Time No Known Allergies Allergy Unverified 05/13/21 14:57 Home Medications Medication Instructions Recorded Confirmed Type metformin 1,000 mg tablet 1,000 mg PO DAILY 08/15/19 08/30/21 History aspirin 81 mg tablet,delayed 81 mg PO QAM 07/08/20 08/30/21 History release (Stanislav Low Dose Aspirin) cyanocobalamin (vitamin B-12) 1,000 mcg SUBLINGUAL DAILY 07/08/20 08/30/21 History 1,000 mcg sublingual tablet amiodarone 200 mg tablet 200 mg PO DAILY #90 tab 05/13/21 08/30/21 Rx Patient History Medical History (Updated 08/31/21 @ 16:36 by Teodoro Peterson MD) CAD (coronary artery disease) DM w/o complication type II Essential hypertension Frequent PVCs Near syncope Right leg DVT 03/2019 - treated 3 months with eliquis (provoked by arthroscopic knee surgery) Status post placement of implantable loop recorder Syncope Ventricular bigeminy Surgical History H/O arthroscopy of right knee H/O: hysterectomy History of coronary artery stent placement 5 stents S/P appendectomy S/P laparoscopic cholecystectomy Family History Daughter , age 57 Coronary heart disease Congestive heart failure Father , age 71 Heart disease Mother , age 77 Heart disease Diabetes Coronary heart disease s/p CABG Kidney disease ESRD was on dialysis Social History Smoking Status: Never smoker Second Hand Exposure: No; Do You Dip or Chew Tobacco: No; Hx Alcohol Use: No Hx Substance Use: No Preferred Language: [place] Citizen Communication Ability: Effective Tool Room Lathe Operator Required: No Beliefs That Will Affect Care: None marital status: Current Living Situation: Spouse Current Living Situation Comment: Lives at home w/ spouse current occupational status: retired current occupation: worked in [employer] nearly 40 years Other Information That Helps Us Care for You: No other: 3 children; 1 daughter is Feels Safe at Home: Yes Safety Concerns: Feels Safe At This Time Assistive Devices: Hearing Aid - Bilateral Physical Exam Physical Exam: Gen.: No acute distress. Alert and oriented. HEENT: Anicteric sclera. Neck: No JVD. Carotid bruit, L > R. Normal carotid upstrokes bilaterally. Cardiac: PMI was nondisplaced. No ventricular heave. Regular. Normal S1-S2. No murmur. No rubs or gallops. Pulmonary: Clear to auscultation bilaterally without wheezes, rales, or rhonchi. Abdomen: Soft, nontender, nondistended, with normoactive bowel sounds. No bruits noted. Extremities: 2+ radial pulses bilaterally. 2+ posterior tibialis pulses bilaterally. No edema or cyanosis. Psychiatric: Affect appears appropriate. Results & Data ([facility]) Vital Signs (Past 12 Hours) Vital Signs Temp Pulse Pulse Resp BP Pulse Ox 08/31/21 15:16 36.7 C 54 L 18 133/75 96 08/31/21 14:58 56 L 08/31/21 11:42 36.7 C 58 L 18 135/75 94 08/31/21 07:52 55 L 08/31/21 07:19 36.6 C 57 L 16 129/70 95 08/31/21 04:32 36.5 C 57 L 18 147/72 H 95 Laboratory Results Laboratory Results - last 24 hr 08/30/21 08/30/21 08/30/21 14:09 17:23 18:33 WBC RBC Hgb Hct MCV MCH MCHC RDW Std Deviation RDW Coeff of Valerie Plt Count MPV Immature Gran % (Auto) Neut % (Auto) Lymph % (Auto) [place] % (Auto) Eos % (Auto) Baso % (Auto) Neut # (Auto) Lymph # (Auto) [place] # (Auto) Eos # (Auto) Baso # (Auto) Immature Gran # (Auto) Sodium Potassium Chloride Carbon Dioxide Anion Gap BUN Creatinine Est Cr Clr Drug Dosing Est GFR ( Amer) Est GFR (Non-Af Amer) BUN/Creatinine Ratio Glucose POC Glucose Estimat Average Glucose Hemoglobin A1c Calcium Magnesium Total Bilirubin AST ALT Alkaline Phosphatase Troponin I High Sens 45.8 H D Total Protein Albumin Globulin Albumin/Globulin Ratio Triglycerides Cholesterol LDL Cholesterol, Calc VLDL Cholesterol, Calc HDL Cholesterol Cholesterol/HDL Ratio TSH 2.766 SARS-CoV-2, RNA, NAAT NEGATIVE 08/30/21 08/31/21 08/31/21 21:36 06:03 06:03 WBC 11.16 H RBC 3.67 L Hgb 11.2 L Hct 33.5 L MCV 91.3 MCH 30.5 MCHC 33.4 RDW Std Deviation 48.7 H RDW Coeff of Valerie 14.5 Plt Count 307 MPV 10.7 H Immature Gran % (Auto) 0.1 Neut % (Auto) 69.8 Lymph % (Auto) 22.3 [place] % (Auto) 6.1 Eos % (Auto) 1.3 Baso % (Auto) 0.4 Neut # (Auto) 7.79 H Lymph # (Auto) 2.49 [place] # (Auto) 0.68 H Eos # (Auto) 0.14 Baso # (Auto) 0.05 Immature Gran # (Auto) 0.01 Sodium 138 Potassium 4.3 Chloride 104 Carbon Dioxide 30 Anion Gap 4 BUN 14 Creatinine 1.48 H Est Cr Clr Drug Dosing 27.2 Est GFR ( Amer) 38.6 Est GFR (Non-Af Amer) 33.3 BUN/Creatinine Ratio 9.5 L Glucose 77 POC Glucose 130 H Estimat Average Glucose Hemoglobin A1c Calcium 8.2 L Magnesium 2.0 Total Bilirubin 0.6 AST 16 ALT 8 Alkaline Phosphatase 49 Troponin I High Sens Total Protein 5.8 L D Albumin 3.2 L Globulin 2.6 Albumin/Globulin Ratio 1.2 Triglycerides 85 Cholesterol 115 LDL Cholesterol, Calc 50 VLDL Cholesterol, Calc 17 HDL Cholesterol 48 Cholesterol/HDL Ratio 2.4 TSH SARS-CoV-2, RNA, NAAT 08/31/21 08/31/21 08/31/21 06:03 07:28 11:34 WBC RBC Hgb Hct MCV MCH MCHC RDW Std Deviation RDW Coeff of Valerie Plt Count MPV Immature Gran % (Auto) Neut % (Auto) Lymph % (Auto) [place] % (Auto) Eos % (Auto) Baso % (Auto) Neut # (Auto) Lymph # (Auto) [place] # (Auto) Eos # (Auto) Baso # (Auto) Immature Gran # (Auto) Sodium Potassium Chloride Carbon Dioxide Anion Gap BUN Creatinine Est Cr Clr Drug Dosing Est GFR ( Amer) Est GFR (Non-Af Amer) BUN/Creatinine Ratio Glucose POC Glucose 78 92 Estimat Average Glucose 126 Hemoglobin A1c 6.0 H Calcium Magnesium Total Bilirubin AST ALT Alkaline Phosphatase Troponin I High Sens Total Protein Albumin Globulin Albumin/Globulin Ratio Triglycerides Cholesterol LDL Cholesterol, Calc VLDL Cholesterol, Calc HDL Cholesterol Cholesterol/HDL Ratio TSH SARS-CoV-2, RNA, NAAT 08/31/21 12:14 WBC RBC Hgb Hct MCV MCH MCHC RDW Std Deviation RDW Coeff of Valerie Plt Count MPV Immature Gran % (Auto) Neut % (Auto) Lymph % (Auto) [place] % (Auto) Eos % (Auto) Baso % (Auto) Neut # (Auto) Lymph # (Auto) [place] # (Auto) Eos # (Auto) Baso # (Auto) Immature Gran # (Auto) Sodium Potassium Chloride Carbon Dioxide Anion Gap BUN Creatinine Est Cr Clr Drug Dosing Est GFR ( Amer) Est GFR (Non-Af Amer) BUN/Creatinine Ratio Glucose POC Glucose Estimat Average Glucose Hemoglobin A1c Calcium Magnesium Total Bilirubin AST ALT Alkaline Phosphatase Troponin I High Sens 141.7 H* D Total Protein Albumin Globulin Albumin/Globulin Ratio Triglycerides Cholesterol LDL Cholesterol, Calc VLDL Cholesterol, Calc HDL Cholesterol Cholesterol/HDL Ratio TSH SARS-CoV-2, RNA, NAAT Diagnostic Findings Brain MRI 08/30/2021: Punctate cerebellar infarcts without evidence of hemorrhagic transformation. Minimal associated edema per Radiology. Head CT 08/30/2021: No acute intracranial findings. Chest x-ray 08/30/2021: No acute process per Radiology. Telemetry personally reviewed: Sinus rhythm and sinus bradycardia in the 50s. No arrhythmia. ECG personally reviewed 08/30/2021: Sinus rhythm with first-degree AV block. Fusion complex. Lateral T-wave abnormality. Nonspecific T-wave abnormality in anterior leads. T-wave abnormalities are new compared to 04/12/2021 ECG. Medications Administered Current Inpatient Medications Acetaminophen (Acetaminophen 325 Mg Tab) 650 mg PO Q4H PRN PRN Reason: Pain or Fever Stop: 09/29/21 21:25 Amiodarone HCl (Amiodarone 200 Mg Tab) 200 mg PO DAILY [facility] Stop: 09/30/21 08:59 Last Admin: 08/31/21 07:59 Dose: 200 mg Documented by: Aspirin (Aspirin 81 Mg Ectab) [facility] Stop: 09/30/21 08:59 Last Admin: 08/31/21 07:59 Dose: 81 mg Documented by: Clopidogrel Bisulfate (Clopidogrel Bisulfate 75 Mg Tab) [facility] Stop: 09/30/21 08:59 Last Admin: 08/31/21 07:57 Dose: 75 mg Documented by: Cyanocobalamin (Cyanocobalamin (B-12) 500 Mcg Tablet) 1,000 mcg PO DAILY [facility] Stop: 09/30/21 08:59 Last Admin: 08/31/21 07:58 Dose: 1,000 mcg Documented by: Lactated Ringer's (Lr) 1,000 mls @ 125 mls/hr IV .Q8H [facility] Stop: 09/29/21 21:25 Last Admin: 08/31/21 13:57 Dose: 125 mls/hr Documented by: Ampicillin Sodium/Sulbactam Sodium 3,000 mg/ Sodium Chloride 108 mls @ 200 mls/hr IV Q12H [facility]; Protocol Stop: 09/09/21 21:25 Miscellaneous Information (Pharmacist Discharge Med Rec Consult) 1 ea N/A UD PRN PRN Reason: Consult Stop: 09/29/21 22:15 Ondansetron HCl (Ondansetron Inj 2 Mg/Ml 2 Ml Vial) 4 mg IV Q4H PRN PRN Reason: Nausea Stop: 09/29/21 21:25 PG Care Time/CCT Total # of Minutes Spent Total Time Spent with Patient: Total time spent is greater than 50% in coordination of care (as documented) at patient's floor/unit and/or counseling patient: Coding Level of Care Code 14658 Initial Inpt Care Lvl 3 Diagnoses Pre-syncope R55 Elevated troponin R77.8 CAD (coronary artery disease) I25.10 Coronary Disease-Associated Artery/Lesion type: [place] artery [place] vs. transplanted heart: [place] heart Associated angina: without angina History of coronary artery stent placement Z95.5 Frequent PVCs I49.3 Essential hypertension I10 Intractable nausea and vomiting R11.2 Dyspnea on exertion R06.09 (1) CAD (coronary artery disease) Coronary Disease-Associated Artery/Lesion type: [place] artery [place] vs. transplanted heart: [place] heart Associated angina: without angina Qualified Code(s): I25.10 - Atherosclerotic heart disease of [place] coronary artery without angina pectoris
[2021-09-01] MEDS: LACTATED RINGER'S 1,000 ML IV SCH (06:03)
[2021-09-01] MEDS: ASPIRIN 81 MG ECTAB PO SCH (08:55)
[2021-09-01] MEDS: CYANOCOBALAMIN (B-12) 500 MCG TABLET PO SCH (08:55)
[2021-09-01] MEDS: CLOPIDOGREL BISULFATE 75 MG TAB PO SCH (08:55)
[2021-09-01] MEDS: AMIODARONE 200 MG TAB PO SCH (08:57)
[2021-09-01] MEDS ORDERED: ISOSORBIDE MONO EXTENDED REL 30 MG TABCR PO SCH (09:00)
[2021-09-01] MEDS: AMPICILLIN/SULBACTAM SOD 3,000 MG in 0.9 % SODIUM CHLORIDE 100 ML IV SCH (09:06)
[2021-09-01] MEDS ORDERED: STROKE PATIENT DISCHARGE STA (11:32)
--- NOTE | 2021-09-01 11:36 | Cardiology Progress Note ---
Date of Service September 01, 2021 Assessment & Plan (1) Elevated troponin: (2) Dyspnea on exertion: (3) CAD (coronary artery disease): (4) History of coronary artery stent placement: (5) Frequent PVCs: (6) Essential hypertension: (7) Intractable nausea and vomiting: (8) Pre-syncope: Plan: ASSESSMENT/PLAN: 1. Elevated troponin: High sensitivity troponin peaked at 141.7. She did not present with symptoms concerning for angina or acute coronary syndrome. Elev ated troponin could be due to severe hypertension as her systolic blood pressure on presentation was 200. Troponin elevation could be due to stroke. She also has known CAD, but once again did not present with acute coronary syndrome so would not pursue ischemic evaluation at this time given that she presented with stroke. 2. Dyspnea with exertion: She appears euvolemic. Ischemic symptoms in the past presented as dyspnea. Given that she presented with stroke on MRI, would not pursue ischemic evaluation at this time as she has no rest symptoms and did not present with symptoms concerning for ischemic heart disease, but rather over the past 1-2 months. Can pursue noninvasive ischemic evaluation as an outpatient. Isosorbide mononitrate initiated. Close follow-up with Dr. Trejo to determine need/timing for outpatient ischemic evaluation based on response to antianginal therapy. 3. CAD s/p PCI x 5: No anginal symptoms as part of this presentation. Dyspnea with exertion may be anginal equivalent as noted above. Continue aspirin 81 mg daily indefinitely. Beta-medardo has been replaced with amiodarone by electrophysiology and she has mild bradycardia. She has not tolerated statin therapy. LDL has been well controlled and < 70. 4. Frequent PVCs: On amiodarone as per her primary nail mill worker, Dr. Trejo. 5. Nausea/vomiting with near syncope: Near-syncope tends to follow episodes of vomiting that come without much warning. This is not a new issue for her however she has had several episodes over the past few months. Perhaps cerebellar insult noted on MRI is related to these symptoms. Loop recorder in the past has not noted any arrhythmia issues to suggest arrhythmia as part of her near-syncope. Perhaps the vomiting increases her vagal tone which leads to near-syncope. This was discussed again with patient and now with her family at the bedside. 6. Stroke: Defer stroke management to primary service and Neurology. Recommend Neurology evaluation. CTA of the neck was unremarkable in April. Plavix has been added by primary service. 7. Hypertension: Blood pressure mostly normotensive to mildly hypertensive but she was significantly hypertensive on presentation. If blood pressure becomes elevated and remains such, would consider amlodipine which could also act as an antianginal if her dyspnea is related to ischemic heart disease. Would follow parameters as per Neurology or primary hospitalist service given her stroke presentation. 8. Disposition: Patient care communicated with Dr. Blackwell of the primary hospitalist service. On discharge she should follow-up with Dr. Trejo, her primary nail mill worker, who can arrange ischemic evaluation if felt to be necessary at that time, depending on her clinical course. Cardiology will sign off at this time. Admission and Anticipated Discharge Date Admission Date: August 31, 2021 Subjective I was notified by nursing staff that family was at the bedside and requested to speak with me. Her and daughter in law were present at the bedside and had questions regarding her stroke, plan of care, and discharge. She has not had any further nausea, vomiting, or near-syncope. She denies chest pain, or shortness of breath. She denies palpitations, edema, or bleeding. She would like to go home. Review of systems: As above. Physical Exam Physical Exam: Gen.: No acute distress. Alert and oriented. HEENT: Anicteric sclera. Neck: No JVD. Cardiac: Regular. Normal S1-S2. No murmur. No rubs or gallops. Pulmonary: Clear to auscultation bilaterally without wheezes, rales, or rhonchi. Abdomen: Soft, nontender, nondistended, with normoactive bowel sounds. No bruits noted. Extremities: 2+ radial pulses bilaterally. 2+ posterior tibialis pulses bilaterally. No edema. No cyanosis. Psychiatric: Affect appears appropriate. Results & Data ([facility]) Vital Signs (Past 12 Hours) Vital Signs Temp Pulse Pulse Resp BP Pulse Ox 09/01/21 11:34 36.5 C 52 L 18 160/76 H 98 09/01/21 06:50 36.6 C 59 L 18 137/74 96 09/01/21 06:07 52 L 09/01/21 04:20 36.7 C 55 L 18 132/71 97 08/31/21 23:47 55 L Laboratory Results Laboratory Results - last 24 hr 08/31/21 08/31/21 08/31/21 11:34 12:14 16:37 POC Glucose 92 77 Troponin I High Sens 141.7 H* D 08/31/21 08/31/21 09/01/21 20:04 22:56 07:40 POC Glucose 97 85 Troponin I High Sens 123.1 H* Diagnostic Findings Chart reviewed. Echo 08/31/2021: Normal LV size. EF 55-60%. Normal wall motion. No LVH. Mild MR. Normal RVSP. ECG personally reviewed: ECG 08/31/2021: Sinus rhythm first-degree AV block at 62 beats per minute. Anterior and lateral T-wave abnormality. Medications Administered Current Inpatient Medications Acetaminophen (Acetaminophen 325 Mg Tab) 650 mg PO Q4H PRN PRN Reason: Pain or Fever Stop: 09/29/21 21:25 Amiodarone HCl (Amiodarone 200 Mg Tab) 200 mg PO DAILY [facility] Stop: 09/30/21 08:59 Last Admin: 09/01/21 08:57 Dose: 200 mg Documented by: Aspirin (Aspirin 81 Mg Ectab) [facility] Stop: 09/30/21 08:59 Last Admin: 09/01/21 08:55 Dose: 81 mg Documented by: Clopidogrel Bisulfate (Clopidogrel Bisulfate 75 Mg Tab) 75 mg PO [facility] Stop: 09/30/21 08:59 Last Admin: 09/01/21 08:55 Dose: 75 mg Documented by: Cyanocobalamin (Cyanocobalamin (B-12) 500 Mcg Tablet) 1,000 mcg PO DAILY [facility] Stop: 09/30/21 08:59 Last Admin: 09/01/21 08:55 Dose: 1,000 mcg Documented by: Lactated Ringer's (Lr) 1,000 mls @ 125 mls/hr IV .Q8H [facility] Stop: 09/29/21 21:25 Last Admin: 09/01/21 06:03 Dose: 125 mls/hr Documented by: Ampicillin Sodium/Sulbactam Sodium 3,000 mg/ Sodium Chloride 108 mls @ 200 mls/hr IV Q12H [facility]; Protocol Stop: 09/09/21 21:25 Last Infusion: 09/01/21 09:40 Dose: Infused Documented by: Isosorbide Mononitrate (Isosorbide [place] Extended Rel 30 Mg Tabcr) 30 mg PO QAM [facility] Stop: 10/01/21 08:59 Last Admin: 09/01/21 08:55 Dose: 30 mg Documented by: Miscellaneous Information (Pharmacist Discharge Med Rec Consult) 1 ea N/A UD PRN PRN Reason: Consult Stop: 09/29/21 22:15 Miscellaneous Information (Stroke Patient Discharge) 1 ea N/A NOW STA Stop: 09/01/21 11:33 Ondansetron HCl (Ondansetron Inj 2 Mg/Ml 2 Ml Vial) 4 mg IV Q4H PRN PRN Reason: Nausea Stop: 09/29/21 21:25 PG Care Time/CCT Total # of Minutes Spent Total Time Spent with Patient: Total time spent is greater than 50% in coordination of care (as documented) at patient's floor/unit and/or counseling patient: Coding Level of Care Code 31295 Subseq Hosp Care Lvl 3 Diagnoses Elevated troponin R77.8 Dyspnea on exertion R06.09 CAD (coronary artery disease) I25.10 Associated angina: without angina Coronary Disease-Associated Artery/Lesion type: [place] artery [place] vs. transplanted heart: [place] heart History of coronary artery stent placement Z95.5 Frequent PVCs I49.3 Essential hypertension I10 Intractable nausea and vomiting R11.2 Pre-syncope R55 (1) CAD (coronary artery disease) Associated angina: without angina Coronary Disease-Associated Artery/Lesion type: [place] artery [place] vs. transplanted heart: [place] heart Qualified Code(s): I25.10 - Atherosclerotic heart disease of [place] coronary artery without angina pectoris
--- NOTE | 2021-09-01 14:56 | Discharge Summary ---
Date of Service September 01, 2021 Admission HPI Per Admitting Provider Arlene Vicente is a 80 year old female who presents to the ER with sudden onset dizziness, nausea and vomiting. Symptoms started suddenly at dinner time. ER notes she reports a history of vertigo although she denies this to me. She reports a history of similar attacks of lightheadedness, dizziness and feeling like she is going to faint. She has a longstanding loop recorder implanted for this reason. Most recently she was hospitalized for the same in April 2021 but has had many similar episodes in the past. Per cardiology visit following that hospitalization the etiology is suspected to be an exaggerated vagal effect with loop recorder showing no obvious bradycardic or tachyarrhythmia episode during these events. She denies any room spinning sensation or motion sickness feeling. Her lightheadedness is better on sitting down. It is usually associated with nausea and vomiting but without abdominal pain or diarrhea. Usually lasts for around 15 minutes however on this occasion the vomiting has been more persis tent. She denies any facial droop, extremity weakness or change in sensation, change in vision, hearing or speech. CT head did not show any acute intracranial pathology however was concerning for acute sinusitis. She reports having sinus disease for the last 2 weeks but no fever or chills and this has been more persistent than usual but she has neglected to see her PCP that she usually would as her daughter has been unwell and is currently hospitalized at [facility]. Due to intractable vomiting she was referred to medicine for admission and ongoing management of sinusitis, vertigo and intractable vomiting. 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 Lungs are clear to auscultation and appear unlabored Cardiac exam, Rhythm is regular.. No murmurs, rubs or gallops. Abdominal exam reveals normal bowel sounds, soft non tender, no masses Extremities are nonedematous and both pedal pulses are normal. Neurologic exam is alert and oriented, no focal loss of strength or sensation Skin is without bruises or rashes Psychologically is without concerns for anxiety or depression. Discharge Data Allergies Allergy/AdvReac Type Severity Reaction Status Date / Time No Known Allergies Allergy Unverified 05/13/21 14:57 Consultations 08/30/21 17:13 ED Decision to Admit Stat 08/31/21 12:15 Consult Cardiology Routine Ordered Studies 08/30/21 14:03 CT head/brain wo con Stat 08/30/21 18:07 MR brain wo con Urgent Hospital Course (1) Pre-syncope: Acute cerebellar stroke, cerebellar infarct discharged on plavix and will try atorvastatin does have concurrent acute sinusitis Brain MRI shows punctate cerebellar infarts with minimal associated edema, will treat as acute CVA (2) Elevated troponin: pt with high sensitivity trop up can consider PSYCHOLOGY FELLOW source, could also be demand ischemia, cardiology started isosorbide and will have outpt follow up, on plavix non specific ECG changes could sx be angina, on nitrates at this time Echo with preserved Ef and no RWMA (3) Intractable nausea and vomiting: resolved (4) Sinusitis: 2 weeks of symptoms. Ceftriaxone given in the ER. Will switch to Augmentin on discharge. (5) Hypomagnesemia: Replete (6) Encounter for interrogation of cardiac recorder: Loop recorder interrogation not revealing for arrhythmia at time of lightheadedness Total Time Total Time Spent Total Time Spent (In Minutes): It required greater than 30 minutes to prepare this patient for discharge Discharge Plan Discharge Items Patient Disposition: Home - Self-Care Reason For Visit: INTRACTABLE NAUSEA AND VOMITING Discharge Diagnosis: cerebellar stroke sinusitis elevated troponin enzyme felt secondary to stroke Activity: Per Instructions section Activity Comment: gradually increase activity Non-emergency contact: Primary Care Provider Call non-emergency contact if: your symptoms worsen Follow-up/Referrals: Marlin Rowe MD [Primary Care Provider] - Diet: Carb Consistent or DM2 Addtl Attending Provider Instructions: The images of your brain confirm you had a small stroke in the balance center of your brain. The neurologist will see you in follow up appointment but did recommend some medication changes, starting plavix in place of aspirin and increasing your cholesterol medication Please complete your anitibiotics for sinusitis Risk Factors for Stroke: You can reduce your chances of stroke by working with your medical provider to adopt a healthy lifestyle. Some specific ways to lower your chance of stroke are: * If you are a smoker, now is the time to stop smoking cigarettes * If you are diabetic, improve the control of your blood sugars * Avoid excessive amounts of alcohol * Control high blood pressure * Lose weight if you are overweight * Be sure to lead an active lifestyle * Eat a healthy diet low in salt, cholesterol and fat You should know about other risk factors for stroke that you are unable to control. These include: * Age 55 years or older * Male gender * Certain racial groups: , or / * Family History of Stroke, Mini stroke or Heart Attack * Sickle Cell Disease Follow Up: It is important for you to keep your follow up appointments with your medical provider. Who to Call and When: Medical Emergencies: Call 911 immediately if you experience any of the following warning signs and symptoms of Stroke: * Sudden numbness or weakness of the face, arm or leg, especially on one side of the body * Sudden confusion, trouble speaking or understanding * Sudden trouble seeing in one or both eyes * Sudden trouble walking, dizziness, loss of balance or coordination * Sudden severe headache with no cause Do not delay calling 911 if you experience any warning signs or symptoms of a stroke. Delay in seeking medical attention may affect what treatments can be given to you. . Pending Studies at Discharge: No Stand-Alone Forms: My [facility], Smoking Cessation Medications and DC Order Prescriptions: New clopidogrel 75 mg Tablet 75 mg PO QAM Qty: 30 RF: 5 isosorbide mononitrate 30 mg Tablet Extended Release 24 Hr 30 mg PO QAM Qty: 30 RF: 5 atorvastatin 40 mg tablet 40 mg PO DAILY Qty: 30 RF: 5 amoxicillin-pot clavulanate 875-125 mg tablet 1 tab PO BID Qty: 20 RF: 0 Continued amiodarone 200 mg tablet 200 mg PO DAILY Qty: 90 RF: 3 metformin 1,000 mg tablet 1,000 mg PO DAILY RF: 0 cyanocobalamin (vitamin B-12) 1,000 mcg Tablet, Sublingual 1,000 mcg SUBLINGUAL DAILY RF: 0 Discontinued aspirin [Stanislav Low Dose Aspirin] 81 mg Tablet,Delayed Release (Dr/Ec) 81 mg PO QAM RF: 0 Discharge Orders: Discharge Order (Routine); Ordered 09/01/21 Ordered By: Harshad Blackwell Admission Data Admit Date/Time: 08/31/21 12:15 Attending Provider: Harshad Blackwell Admit Provider: Vladimir Park Primary Care Provider: Marlin Rowe Other Providers: Vladimir Park ; Teodoro Peterson Other Interventions: Discharge Summary Assessment (RN) Last Done: 09/01/21 11:51 Coding Level of Care Code D/C DAY MANAGEMENT >30 MINS Diagnoses Pre-syncope R55 Elevated troponin R77.8 Intractable nausea and vomiting R11.2 Sinusitis J01.90 Chronicity: acute Recurrence: not specified as recurrent Sinusitis location: unspecified location Hypomagnesemia E83.42 Encounter for interrogation of cardiac recorder Z45.09
--- NOTE | 2021-09-01 15:24 | Pharmacy Report ---
Pharmacist Stroke Counseling - Date of Service September 01, 2021 - Scope: Pharmacy has been consulted to provide medication discharge counseling for this patient admitted with [ischemic stroke] [hemorrhagic stroke] [transient ischemic attack] as per the Pharmacist Discharge Counseling for Stroke Patients Protocol . - Medications on Discharge: Home Medications Medication Instructions Recorded Confirmed metformin 1,000 mg tablet 1,000 mg PO DAILY 08/15/19 08/30/21 cyanocobalamin (vitamin B-12) 1,000 mcg SUBLINGUAL DAILY 07/08/20 08/30/21 1,000 mcg sublingual tablet Medication Instructions Recorded amiodarone 200 mg tablet 200 mg PO DAILY #90 tab 05/13/21 amoxicillin 875 mg-potassium 1 tab PO BID #20 tab 09/01/21 clavulanate 125 mg tablet atorvastatin 40 mg tablet 40 mg PO DAILY #30 tab 09/01/21 clopidogrel 75 mg tablet 75 mg PO QAM #30 tab 09/01/21 isosorbide mononitrate 30 mg 30 mg PO QAM #30 tab 09/01/21 tablet,extended release 24 hr - Action: The above medications, specifically ones for stroke treatment/prophylaxis, have been reviewed in detail with the patient and/or patient patient relations representative(s) prior to discharge. This includes indication, common adverse reactions, drug interactions, and medication administration. Medication counseling has been employed using the teach-back method to ensure understanding. - Outcome: The patient and/or patient patient relations representative(s) have demonstrated understanding of the medications. Additional comments: Spoke with patient's daughter in law, Britney (per patient request) as she helps to manage patients meds at home. We reviewed all new medications together. I did reach out to provider about possible renal adjustment of augmentin at discharge. No pertinent positives on interview Thank you for allowing pharmacy to be involved in the care of this patient. Please call [phone] with any additional questions
--- NOTE | 2021-09-02 22:43 | Electrocardiogram Report ---
Test Reason : Blood Pressure : / mmHG Vent. Rate : 062 BPM Atrial Rate : 062 BPM P-R Int : 240 ms QRS Dur : 100 ms QT Int : 480 ms P-R-T Axes : 049 011 128 degrees QTc Int : 487 ms Sinus rhythm with 1st degree A-V block Prolonged QT Abnormal ECG When compared with ECG of 30-AUG-2021 13:59, T wave inversion now evident in Anterolateral leads Fusion complexes are no longer Present Confirmed by Teodoro Peterson ([id number]) on 09/02/2021 10:43:30 PM Referred By: REFERRED SELF Confirmed By:Teodoro Peterson
== END 2021-09-01 13:00 | disposition home or self-care (01) ==
LOC: 2N 13:48 → ED 13:48 → SUATTDRO 18:16 → 2N 20:19

== ENCOUNTER 2024-06-14 23:29 | Observation (INO) ==
[2024-06-15 00:10] LABS: Basophils % (auto) 0.7 %; Eosinophils # (auto) 0.38 K/uL (0.00-0.50); Eosinophils % (auto) 2.6 %; Hematocrit (blood only) 35.9 % (37.0-47.0); Hemoglobin 11.7 g/dl (12.0-16.0); Immature Granulocytes # (auto) 0.04 K/uL (0.01-0.20); Immature Granulocytes % (auto) 0.3 %; Lymphocytes # (auto) 3.08 K/uL (1.20-3.40); Lymphocytes % (auto) 21.3 %; Mean Corpuscular Hemoglobin 30.1 pg (25.0-34.0); Mean Corpuscular Hgb Conc 32.6 g/dL (32.0-36.0); Mean Corpuscular Volume 92.3 fL (80.0-100.0); Mean Platelet Volume 11.4 fL (9.4-12.4); Monocytes # (auto) 0.86 K/uL (0.11-0.59); Monocytes % (auto) 5.9 %; Neutrophils % (auto) 69.2 %; Platelet Count 237 K/uL (130-400); RDW Coefficient of Variation 14.1 % (11.5-14.5); RDW Standard Deviation 48.1 fL (36.4-46.3); Red Blood Count 3.89 M/uL (4.20-5.40); White Blood Count 14.46 K/ul (4.8-10.8)
[2024-06-15 00:28] LABS: Albumin Level 3.7 gm/dl (3.4-5.0); Bilirubin,Total 0.5 mg/dl (0.2-1.0); Calcium 8.5 mg/dl (8.6-10.3); Troponin I High Sensitivity 9.8 pg/ml (0-14)
[2024-06-15 00:34] LABS: Albumin Globulin Ratio 1.4 (0.9-2); BUN Creatinine Ratio 12.4 (10-20); Globulin 2.7 gm/dl (2.5-4.0); Total Protein 6.4 gm/dl (6.0-8.3)
--- NOTE | 2024-06-15 00:42 | Emergency Department Note ---
Impression & Plan Chest pain, Vomiting, Dizziness ED Provider Note ED Provider Note NAME: RENATO ALICIA AGE:83 SEX: Female : 1940 ARRIVES VIA: EMS INFORMANT: Patient ED PROVIDER(s): Tisha Dillon DO CHIEF COMPLAINT: Chest pain HPI: This is an 83-year-old female who presents emerged part due to concern for central chest pain this evening with accompanying dizziness and nausea/vomiting. Patient with significant prior cardiac history including known coronary artery disease and per her report 7 indwelling cardiac stents. Patient states she has been noting intermittent chest pain over the course of the last month. She states tonight it seemed more severe and lasted longer and she had accompanying lightheadedness and then an episode of vomiting. Patient states this is similar to prior presentations where she has required cardiac catheterization and subsequent stenting. Patient states she does follow with Dr. Trejo of cardiology and did see him in April. She states at that time her isosorbide was discontinued however due to her evolving episodes of chest pain over the course of the last month she states she restarted it on her own this past weekend. Patient also states she is not taking the cholesterol medication as previously prescribed as she does not feel well on it. She denies any recent fevers, chills, or recent illness. No recent leg swelling, change in urine, or change in stools. Patient denies any trauma or other change in activity. PAST MEDICAL HISTORY:See Below PAST SURGICAL HISTORY:See Below FAMILY HISTORY:See Below SOCIAL HISTORY:See Below HOME MEDICATIONS:See Below ALLERGIES:See Below VITALS:See Below PHYSICAL EXAMINATION: GENERAL: alert, well appearing, well nourished, no distress, non-toxic EYE EXAM: normal conjunctiva, PERRL and EOM's grossly intact OROPHARYNX: no exudate, no erythema, lips, buccal mucosa, and tongue normal and mucous membranes are moist NECK: supple, no nuchal rigidity, no adenopathy, non-tender LUNGS: Clear to auscultation. Normal chest wall mechanics, no w/r/r HEART: no murmurs, S1 normal and S2 normal, no reproducible pain with palpation ABDOMEN: abdomen soft, non-tender, normo-active bowel sounds, no masses, no rebound or guarding. SKIN: no rashes, petechiae, orbruising UPPER EXTREMITIES: upper extremities are grossly normal. FROM, nml pulses b/l. LOWER EXTREMITIES: No pitting edema. FROM, nml pulses b/l. NEURO EXAM: Normal sensorium, cranial nerves II-XII grossly intact, normal speech, no facial droop,nogross weakness of arms, no gross weakness of legs. Gross sensation intact. No ataxia. Vital Signs: reviewed and remarkable Differential Diagnosis: acute coronary syndrome, pericarditis, pulmonary embolus, aortic dissection, pneumonia, pneumothorax, musculoskeletal pain, shingles, GERD, GI bleed, as well as others were considered MEDICAL DECISION MAKING: THis is an 83 yo female with significant cardiac hx who presents with symptoms similar to prior episodes that required intervention. Patient with worsening symptoms over the last month. She was afebrile and VS stable on arrival. Labs drawn and sent, IV established, EKG and CXR performed and interpreted at bedside, and patient placed on telemetry. Troponin negative and EKG without concerning changes. Patient reported improvement in her sx after being given asa and nitro by EMS. No ectopy or dysrhythmia on tele. Given hx we discussed further inpatient evaluation. Case discussed with the hospitalist team for further evaluation and mgmt. Consultation(s): 0215: Discussed with Dr. Monahan, [facility] hospitalist team, for additional evaluation and management. ER Treatment Provided: See below Diagnostics Interpreted By Me: -ECG: Normal sinus at 71 with sinus arrhythmia, normal axis, normal intervals, no acute ST/T wave changes -Cardiac Monitoring: An order was placed for continuous cardiac monitoring. The monitor shows a rate of 80 with normal sinus rhythm. -Laboratory studies: As stated above and show below. -Imaging studies: X-ray Chest: A single view study of the chest was reviewed and was negative for cardiomegaly, focal infiltrate, effusion, pulmonary edema, or wide mediastinum. Triage Nursing Note Reviewed Prior/Outside Records Reviewed - office visit from Dr. Trejo from 04/26/2024 reviewed Past Med/Surg History Problem List (Updated 06/15/24 @ 03:35 by Sharee Funes PA-C) Hypocalcemia Dizziness (Acute) Vomiting (Acute) Chest pain (Acute) Dysphagia GERD (gastroesophageal reflux disease) Poor short term memory Decreased hearing of both ears Post-concussion vertigo Status post fall B12 deficiency History of multiple strokes Diabetic peripheral neuropathy Vasovagal episode Stroke Essential hypertension Chronic renal failure, stage 3b Multiple thyroid nodules Syncope (Acute) Pre-syncope BRENNAN (acute kidney injury) Arrhythmia Hypomagnesemia Ventricular bigeminy (Acute) S/P appendectomy H/O: hysterectomy S/P laparoscopic cholecystectomy H/O arthroscopy of right knee DM w/o complication type II History of coronary artery stent placement 5 stents CAD (coronary artery disease) Medical History PONV (postoperative nausea and vomiting) History of kidney stones History of uterine cancer >40 years ago - surgery only HTN (hypertension) Hx of seizure disorder Only has had one seizure in 09/2022 - Transported to [facility] from PCP office A-fib "Occasionally goes into A-fib. Most recently in October 2023" as per patients daughter - Eliquis [facility] History of multiple strokes Multiple "Mini" strokes as per daughter GERD (gastroesophageal reflux disease) Dysphagia Type 2 diabetes mellitus Diabetic peripheral neuropathy [place] (hard of hearing) Bilateral hearing aids. CAD (coronary artery disease) Chronic renal failure (CRF), stage 3b BRENNAN (acute kidney injury) Status post placement of implantable loop recorder [facility] - Neil Near syncope "Has come close to from low heart rate - has not actually passed out from it" as per daughter Right leg DVT 03/2019 - treated 3 months with eliquis (provoked by arthroscopic knee surgery) Surgical History Hx of lithotripsy Hx of cardiac cath multiple - with stents (5 total) [facility] Hx of cholecystectomy Hx of appendectomy History of coronary artery stent placement x5 [facility] Neil Hx of hysterectomy Hx of arthroscopy of right knee Family History Daughter , age 57 Coronary heart disease Congestive heart failure Father , age 71 Heart disease Mother , age 77 Heart disease Diabetes Coronary heart disease s/p CABG Kidney disease ESRD was on dialysis Social History Smoking Status: Never smoker Second Hand Exposure: No; Do You Dip or Chew Tobacco: No; Hx Alcohol Use: No Hx Substance Use: No Preferred Language: Sami Communication Ability: Effective Web Retailer Required: No Beliefs That Will Affect Care: None marital status: Current Living Situation: Alone Current Living Situation Comment: Lives at home w/ spouse current occupational status: retired current occupation: worked in [employer] nearly 40 years other: 3 children; 1 daughter is Feels Safe at Home: Yes Assistive Devices: Denture - Upper, Denture - Lower, Glasses and Hearing Aid - Bilateral Allergies Allergies Allergy/AdvReac Type Severity Reaction Status Date / Time oxycodone [From Percocet] AdvReac Intermediate Upset Verified 06/15/24 01:14 Stomach Home Meds Home Medications Medication Instructions Recorded Confirmed allopurinol 100 mg tablet 100 mg PO DAILY 12/04/22 06/15/24 prednisone 20 mg tablet 20 mg PO DIRECTED PRN GOUT 12/04/22 06/15/24 FLARE [employer] metformin 1,000 mg tablet 1,000 mg PO DAILY 07/07/23 06/15/24 duloxetine 30 mg capsule,delayed 30 mg PO DAILY 12/01/23 06/15/24 release (Cymbalta) ondansetron HCl 4 mg tablet 4 mg PO Q8H PRN Nausea & Vomiting 12/01/23 06/15/24 cyanocobalamin (vitamin B-12) 1,000 mcg IM MONTHLY 06/15/24 06/15/24 1,000 mcg/mL injection solution Previous Rx's Medication Instructions Recorded atorvastatin 40 mg tablet 40 mg PO DAILY #30 tabs 09/01/21 aspirin 81 mg tablet,delayed 81 mg PO QAM #90 tabs 01/02/22 release isosorbide mononitrate 30 mg 30 mg PO QAM #30 tabs 08/18/22 tablet,extended release 24 hr carvedilol 6.25 mg tablet 6.25 mg PO BID #180 tabs 10/23/23 apixaban 2.5 mg tablet (Eliquis) 2.5 mg PO BID #180 tabs 11/20/23 pantoprazole 40 mg tablet,delayed 40 mg PO BID #180 tabs 02/05/24 release (Protonix) ondansetron 4 mg disintegrating 4 mg PO Q8H PRN nausea and 06/15/24 tablet vomiting #30 tabs Results & Data (ED) Vital Signs Vital Signs - 24 hr 06/14/24 23:41 06/14/24 23:45 06/14/24 23:45 Temperature 36.5 C Temperature Source Oral Pulse Rate 85 75 Pulse Rate [Right Finger] Pulse Rhythm Regular Pulse Rhythm [Right Finger] Pulse Strength Normal Pulse Strength [Right Finger] Respiratory Rate 15 Respiratory Effort / Characteristics Non-Labored Spontaneous Respiratory Depth Normal Respiratory Pattern Regular Blood Pressure 137/94 Blood Pressure [Right Arm] Blood Pressure Mean 108 Blood Pressure Mean [Right Arm] Blood Pressure Position Lying Blood Pressure Position [Right Arm] Pulse Oximetry 99 Oxygen Delivery Method Room Air Room Air Sepsis Recent Fever Within 48 Hours No Sepsis New/Unexplained Change in Mental Status N/A Sepsis Action Taken by Nursing No Action Required 06/14/24 23:45 06/14/24 23:55 Temperature 36.5 C Temperature Source Oral Pulse Rate 79 Pulse Rate [Right Finger] 75 Pulse Rhythm Regular Pulse Rhythm [Right Finger] Regular Pulse Strength Pulse Strength [Right Finger] Normal Respiratory Rate 15 15 Respiratory Effort / Characteristics Non-Labored Spontaneous Respiratory Depth Normal Respiratory Pattern Regular Blood Pressure Blood Pressure [Right Arm] 137/94 Blood Pressure Mean Blood Pressure Mean [Right Arm] 108 Blood Pressure Position Blood Pressure Position [Right Arm] Lying Pulse Oximetry 99 99 Oxygen Delivery Method Room Air Room Air Sepsis Recent Fever Within 48 Hours Sepsis New/Unexplained Change in Mental Status Sepsis Action Taken by Nursing Laboratory Data 06/14/24 23:52 06/14/24 23:52 Lab Results 06/14/24 Range/Units 23:52 WBC 14.46 H (4.8-10.8) K/ul RBC 3.89 L (4.20-5.40) M/uL Hgb 11.7 L (12.0-16.0) g/dl Hct 35.9 L (37.0-47.0) % MCV 92.3 (80.0-100.0) fL MCH 30.1 (25.0-34.0) pg MCHC 32.6 (32.0-36.0) g/dL RDW Std Deviation 48.1 H (36.4-46.3) fL RDW Coeff of Valerie 14.1 (11.5-14.5) % Plt Count 237 (130-400) K/uL MPV 11.4 (9.4-12.4) fL Immature Gran % (Auto) 0.3 % Neut % (Auto) 69.2 % Lymph % (Auto) 21.3 % [place] % (Auto) 5.9 % Eos % (Auto) 2.6 % Baso % (Auto) 0.7 % Neut # (Auto) 10.00 H (1.40-6.50) K/uL Lymph # (Auto) 3.08 (1.20-3.40) K/uL [place] # (Auto) 0.86 H (0.11-0.59) K/uL Eos # (Auto) 0.38 (0.00-0.50) K/uL Baso # (Auto) 0.10 (0.00-0.20) K/uL Immature Gran # (Auto) 0.04 (0.01-0.20) K/uL Sodium 138 (136-145) mmol/L Potassium 4.0 (3.5-5.1) mmol/L Chloride 105 (98-107) mmol/L Carbon Dioxide 25 (21-32) mmol/L Anion Gap 8 (3-11) BUN 19 (6-23) mg/dl Creatinine 1.53 H (0.6-1.2) mg/dl Est Cr Clr Drug Dosing 28.0 ml/min eGFR 33.77 BUN/Creatinine Ratio 12.4 (10-20) Glucose 189 H (70-99(Fasting)) mg/dl Calcium 8.5 L (8.6-10.3) mg/dl Total Bilirubin 0.5 (0.2-1.0) mg/dl AST 24 (13-39) U/L ALT 12 (7-52) U/L Alkaline Phosphatase 55 (34-104) U/L Troponin I High Sens 9.8 (0-14) pg/ml Total Protein 6.4 (6.0-8.3) gm/dl Albumin 3.7 (3.4-5.0) gm/dl Globulin 2.7 (2.5-4.0) gm/dl Albumin/Globulin Ratio 1.4 (0.9-2) Lipase 75 (11-82) U/L Administered Medications Discontinued Medications Allopurinol (Allopurinol 100 Mg Tab) 100 mg PO DAILY [facility] Stop: 07/15/24 08:59 Last Admin: 06/15/24 09:00 Dose: 100 mg Documented By: KJL Apixaban (Apixaban 2.5 Mg Tab) 2.5 mg PO BID [facility] Stop: 07/15/24 08:59 Last Admin: 06/15/24 09:00 Dose: 2.5 mg Documented By: JESSICA Aspirin (Aspirin 81 Mg Ectab) 81 mg PO QAM [facility] Stop: 07/15/24 08:59 Last Admin: 06/15/24 09:00 Dose: 81 mg Documented By: JESSICA Calcium Carbonate (Calcium Carbonate 500 Mg Chewable Tab) 1,500 mg PO NOW STA Stop: 06/15/24 03:33 Last Admin: 06/15/24 04:39 Dose: 1,500 mg Documented By: VALERIA Carvedilol (Carvedilol 6.25 Mg Tab) 6.25 mg PO BID [facility] Stop: 07/15/24 08:59 Last Admin: 06/15/24 09:00 Dose: 6.25 mg Documented By: JESSICA Duloxetine HCl (Duloxetine Hcl 30 Mg Cap) 30 mg PO DAILY [facility] Stop: 07/15/24 08:59 Last Admin: 06/15/24 09:00 Dose: 30 mg Documented By: JESSICA Famotidine (Pepcid 20mg Iv Push) 20 mg in 5 mls @ 2.5 mls/min IV NOW STA Stop: 06/15/24 00:20 Last Admin: 06/15/24 00:55 Dose: 2.5 mls/min Documented By: LETTY Sodium Chloride (Nss) 1,000 mls @ 125 mls/hr IV .Q8H [facility] Stop: 06/16/24 00:29 Last Admin: 06/15/24 09:40 Dose: Not Given Documented By: Infusion: 06/15/24 09:15 Dose: Infused Documented By: Admin: 06/15/24 00:54 Dose: 125 mls/hr Documented By: PAG Isosorbide Mononitrate (Isosorbide [place] Extended Rel 30 Mg Tabcr) 30 mg PO QAM [facility] Stop: 07/15/24 08:59 Last Admin: 06/15/24 09:00 Dose: 30 mg Documented By: JESSICA Metformin HCl (Metformin Hcl 500 Mg Tab) 1,000 mg PO DAILY@0730 [facility] Stop: 07/15/24 07:29 Last Admin: 06/15/24 07:59 Dose: 1,000 mg Documented By: JESSICA Pantoprazole Sodium (Pantoprazole 40 Mg Tab) 40 mg PO BID [facility] Stop: 07/15/24 08:59 Last Admin: 06/15/24 09:00 Dose: 40 mg Documented By: JESSICA Imaging Data Radiologist's Impression: Chest X-Ray 06/14/24 23:55 EXAM: XR chest 1V portable CLINICAL HISTORY: Chest pain, nonspecific TECHNIQUE: An X-ray image of the chest is obtained in AP projection. COMPARISON: 10/19/2023 CR Chest FINDINGS: Pulmonary Parenchyma: Chest leads are seen Atelectatic band seen in left lung lower zone No evidence of consolidation, or focal opacities. No pulmonary nodules are identified. Mild blunting of right costophrenic angle seen No evidence of pleural effusion or pleural thickening on left side Heart and Mediastinum: Heart size is enlarged. Both jonathan appear prominent likely due to vascular congestion. Implantable loop recorder seen. Apparent density seen along the right paravertebral region Bony Thorax: Bony thorax appears intact without fractures or deformities. Soft Tissues: Soft tissues overlying the chest wall are unremarkable. IMPRESSION: 1. Redemonstration of cardiomegaly with bilateral hilar vascular congestion, showing apparent mild interval progression 2. Mild blunting of right costophrenic angle, which is evident in present examination, could be due to pleural thickening/effusion. If clinically required ultrasound may be obtained 3. Redemonstration of apparent density along the right paravertebral region, showing no significant change since last examination. This may be nonspecific, If clinically required CT scan may be obtained Electronically signed by Triston Arias 06-15-2024 01:40 AM Discharge Plan Visit Data Chief Complaint: Cardiac Assessment Stated Complaint: CHEST PAIN, NAUSEA, VOMITING ED Provider: Tisha Dillon Discharge Problem: Chest pain, Vomiting, Dizziness Patient Disposition: Admitted As Inpatient Discharge Instructions Interventions: ED Discharge Assessment Last Done: 06/15/24 04:39
[2024-06-15] MEDS: SODIUM CHLORIDE 0.9% 1,000 ML IV SCH (00:54)
[2024-06-15] MEDS: FAMOTIDINE 20MG IV PUSH 20 MG/5 ML SYR IV STA (00:55)
--- NOTE | 2024-06-15 01:40 | XRay Report ---
EXAM: XR chest 1V portable CLINICAL HISTORY: Chest pain, nonspecific TECHNIQUE: An X-ray image of the chest is obtained in AP projection. COMPARISON: 10/19/2023 CR Chest FINDINGS: Pulmonary Parenchyma: Chest leads are seen Atelectatic band seen in left lung lower zone No evidence of consolidation, or focal opacities. No pulmonary nodules are identified. Mild blunting of right costophrenic angle seen No evidence of pleural effusion or pleural thickening on left side Heart and Mediastinum: Heart size is enlarged. Both jonathan appear prominent likely due to vascular congestion. Implantable loop recorder seen. Apparent density seen along the right paravertebral region Bony Thorax: Bony thorax appears intact without fractures or deformities. Soft Tissues: Soft tissues overlying the chest wall are unremarkable. IMPRESSION: 1. Redemonstration of cardiomegaly with bilateral hilar vascular congestion, showing apparent mild interval progression 2. Mild blunting of right costophrenic angle, which is evident in present examination, could be due to pleural thickening/effusion. If clinically required ultrasound may be obtained 3. Redemonstration of apparent density along the right paravertebral region, showing no significant change since last examination. This may be nonspecific, If clinically required CT scan may be obtained Electronically signed by Triston Arias 06-15-2024 01:40 AM
--- NOTE | 2024-06-15 02:39 | History & Physical Report ---
Date of Service June 15, 2024 Assessment & Plan (1) Chest pain: (2) Hypocalcemia: (3) Chronic renal failure, stage 3b: (4) Type 2 diabetes mellitus: Plan 83-year-old female PMHx CAD s/p multiple PCI's, multiple CVAs, frequent ventricular ectopy, A-fib, HLD, HTN, GERD, chronic renal failure stage IIIb, and T2DM presenting via EMS for onset of chest pain starting at 1930 the day prior to arrival. ED evaluation reveals leukocytosis 14.46, H&H 11.7/35.9; CMP creatinine 1.53, glucose 189, calcium 8.5; troponin 9.8; lipase 75; CXR with redemonstration of cardiomegaly and bilateral hilar vascular congestion showing apparent mild interval progression, blunting of R costophrenic angle could be due to pleural thickening/effusion, and redemonstration of apparent density along right paravertebral region with no significant changes since last exam; EKG sinus rhythm with secondary AV block (Mobitz 1) at 71 bpm.; Provided with famotidine 20 mg IV and 1L NSS in ED. #Chest pain/CAD/HTN/HLD/Afib Significant cardiac history, s/p PCI of circumflex most recently; follows with cardiology, workup for syncope which had unclear etiology but episodes were consistent with high vagal tone possibly related to pontine infarcts or polyneuropathy, all preceded by significant GI symptoms as well as severe vomiting per cardiology note (01/06/2023). ASA, Eliquis, isosorbide mononitrate, carvedilol; statin d/c per patient. Low suspicion for ACS, suspect GI etiology more likely source however, given significant cardiac history, admission/cardiac r/o necessary. Does admit that "indigestion has been bothersome" recently. - CBC w/ leukocytosis 14.46 (recently on prednisone "here and there" and was for last 1-2 days per patietn), H/H 11.7/35.9 - CBC am - Troponin 9.8, pending repeat; EKG sinus with Mobitz I at 71bpm - CXR bilateral hilar vascular congestion, blunting R costophrenic angle (thickening vs effusion), redemonstration R paravertebral region density --> Procal pending given CXR findings and leukocytosis, however no F/C or coughing - Echo pending - Lipid panel from 2021 WNL, recently d/c statin (HELD AT ADMISSION DUE TO SUCH)- no repeat ordered at admission - Zofran prn N/V, Maalox prn dyspepsia, Tums x 1 - Consider cardiology consult in am - no consult at time of admission #Hypocalcemia Asymptomatic currently, just under baseline. - Ca 8.5 - Calcium carbonate 1500mg po now - for mild hypocalcemia + for above (? GI etiology) - Repeat am #CKD stage IIIb H/o CKD, baseline Cr appears to be 1.4-1.7 - Cr 1.53 at admission - No LUTS --> No UA at admission - BMP am #T2DM At home regimen includes metformin; complicated by neuropathy, on Cymbalta and follows with neurology for such. - Most recent A1C 04/2022 @ 6.0% - Continue Metformin- No SSI added at admission - BSG ACHS - Adjust regimen as needed #GERD- Pantoprazole, continue #Gout- Allopurinol, prednisone prn (flares) #H/o Seizures- Per history, no medications for such and no recent seizure like activity Dispo: Admit, med/tele VTE prophylaxis: Eliquis This document was dictated utilizing [employer]. Please excuse any grammatical errors that may be secondary to use of this software. Admission and Anticipated Discharge Date Admission Date: 06/15/2024 History of Present Illness Chief Complaint: Chest pain Primary Care Provider: Marlin Rowe MD 83-year-old female PMHx CAD s/p multiple PCI's, multiple CVAs, frequent ventricular ectopy, A-fib, HLD, HTN, GERD, chronic renal failure stage IIIb, and T2DM presenting via EMS for onset of chest pain starting at 1930 the day prior to arrival. Patient states that she was at her granddaughter's house and feeling normal. She then went back to her house around 1930 and was sitting on the couch when she had a sudden onset of lightheadedness. States that she did not necessarily feel that she was going to pass out, but felt that her head was "floating" and then had a warm sensation "spread across" her chest. She states that over the past week, she has been having an "annoying" chest discomfort at her central chest without radiation and this was present at the time of this episode too. States that after the warm sensation, she had a sudden onset of nausea with vomiting x 1. States that she does have baseline BAZZI that has not worsened, and no SOB in general. Does have a baseline cough, nonproductive. Denies palpitations, abdominal pain, D/C, numbness/tingling, LUTS, URI symptoms, or F/C. No known sick contacts. Patient has been under a lot of emotional stress over the past year after losing multiple family members. EMS provided patient with 324 mg of aspirin and 1 sublingual dose of nitroglycerin. ED evaluation reveals leukocytosis 14.46, H&H 11.7/35.9; CMP creatinine 1.53, glucose 189, calcium 8.5; troponin 9.8; lipase 75; CXR with redemonstration of cardiomegaly and bilateral hilar vascular congestion showing apparent mild interval progression, blunting of R costophrenic angle could be due to pleural thickening/effusion, and redemonstration of apparent density along right parav ertebral region with no significant changes since last exam; EKG sinus rhythm with secondary AV block (Mobitz 1) at 71 bpm.; Provided with famotidine 20 mg IV and 1L NSS in ED. Please see Dr. Monahan's attestation for adjustments/additions to treatment plan. Allergies Allergy/AdvReac Type Severity Reaction Status Date / Time oxycodone [From Percocet] AdvReac Intermediate Upset Verified 06/15/24 01:14 Stomach Home Medications Medication Instructions Recorded Confirmed Type atorvastatin 40 mg tablet 40 mg PO DAILY #30 tabs 09/01/21 06/15/24 Rx aspirin 81 mg tablet,delayed 81 mg PO QAM #90 tabs 01/02/22 06/15/24 Rx release isosorbide mononitrate 30 mg 30 mg PO QAM #30 tabs 08/18/22 06/15/24 Rx tablet,extended release 24 hr allopurinol 100 mg tablet 100 mg PO DAILY 12/04/22 06/15/24 History prednisone 20 mg tablet 20 mg PO DIRECTED PRN GOUT 12/04/22 06/15/24 History FLARE UPS metformin 1,000 mg tablet 1,000 mg PO DAILY 07/07/23 06/15/24 History carvedilol 6.25 mg tablet 6.25 mg PO BID #180 tabs 10/23/23 06/15/24 Rx apixaban 2.5 mg tablet (Eliquis) 2.5 mg PO BID #180 tabs 11/20/23 06/15/24 Rx duloxetine 30 mg capsule,delayed 30 mg PO DAILY 12/01/23 06/15/24 History release (Cymbalta) ondansetron HCl 4 mg tablet 4 mg PO Q8H PRN Nausea & Vomiting 12/01/23 06/15/24 History pantoprazole 40 mg tablet,delayed 40 mg PO BID #180 tabs 02/05/24 06/15/24 Rx release (Protonix) cyanocobalamin (vitamin B-12) 1,000 mcg IM MONTHLY 06/15/24 06/15/24 History 1,000 mcg/mL injection solution Past Med/Surg History Problem List (Updated 06/15/24 @ 03:35 by Sharee Funes PA-C) Hypocalcemia Dizziness (Acute) Vomiting (Acute) Chest pain (Acute) Dysphagia GERD (gastroesophageal reflux disease) Poor short term memory Decreased hearing of both ears Post-concussion vertigo Status post fall B12 deficiency History of multiple strokes Diabetic peripheral neuropathy Vasovagal episode Stroke Essential hypertension Chronic renal failure, stage 3b Multiple thyroid nodules Syncope (Acute) Pre-syncope BRENNAN (acute kidney injury) Arrhythmia Hypomagnesemia Ventricular bigeminy (Acute) S/P appendectomy H/O: hysterectomy S/P laparoscopic cholecystectomy H/O arthroscopy of right knee DM w/o complication type II History of coronary artery stent placement 5 stents CAD (coronary artery disease) Medical History PONV (postoperative nausea and vomiting) History of kidney stones History of uterine cancer >40 years ago - surgery only HTN (hypertension) Hx of seizure disorder Only has had one seizure in 09/2022 - Transported to [facility] from PCP office A-fib "Occasionally goes into A-fib. Most recently in October 2023" as per patients daughter - Eliquis [facility] History of multiple strokes Multiple "Mini" strokes as per daughter GERD (gastroesophageal reflux disease) Dysphagia Type 2 diabetes mellitus Diabetic peripheral neuropathy [place] (hard of hearing) Bilateral hearing aids. CAD (coronary artery disease) Chronic renal failure (CRF), stage 3b BRENNAN (acute kidney injury) Status post placement of implantable loop recorder [facility] - Neil Near syncope "Has come close to from low heart rate - has not actually passed out from it" as per daughter Right leg DVT 03/2019 - treated 3 months with eliquis (provoked by arthroscopic knee surgery) Surgical History Hx of lithotripsy Hx of cardiac cath multiple - with stents (5 total) [facility] Hx of cholecystectomy Hx of appendectomy History of coronary artery stent placement x5 [facility] Neil Hx of hysterectomy Hx of arthroscopy of right knee Family History Daughter , age 57 Coronary heart disease Congestive heart failure Father , age 71 Heart disease Mother , age 77 Heart disease Diabetes Coronary heart disease s/p CABG Kidney disease ESRD was on dialysis Social History Smoking Status: Never smoker Second Hand Exposure: No; Do You Dip or Chew Tobacco: No; Hx Alcohol Use: No Hx Substance Use: No Preferred Language: Lao Communication Ability: Effective [place] Man Required: No Beliefs That Will Affect Care: None marital status: Current Living Situation: Alone Current Living Situation Comment: Lives at home w/ spouse current occupational status: retired current occupation: worked in [employer]y nearly 40 years other: 3 children; 1 daughter is Feels Safe at Home: Yes Assistive Devices: Denture - Upper, Denture - Lower, Glasses and Hearing Aid - Bilateral Review of Systems Review of Systems: All systems reviewed & are unremarkable except as noted in Subjective Physical Exam Physical Exam: General: No acute distress Skin: Warm and dry Head: Normocephalic, atraumatic Eyes: PERRL, conjunctivae clear, sclera non-icteric ENT: External ear and ear canal without swelling; nose atraumatic; good dentition, tongue normal appearance, pharynx normal, appears slightly dry Neck: Supple, no LAD Cardio: RRR, no M/G/R, S1 and S2 normal Resp: No respiratory distress, Lungs CTA in all lobes bilaterally, no wheezes, rales, or rhonchi Abdomen: Soft, symmetric, nontender; No masses or hepatosplenomegaly; Bowel sounds normoactive MSK: No deformities; pulses palpable and equal; trace pitting edema BLE. Neuro: Awake, alert; Sensation intact bilaterally; CN grossly intact Psych: Appropriate mood and affect; good judgement and insight. Results & Data Results & Data Vital Signs (Past 12 Hours) Vital Signs Temp Pulse Pulse Resp BP BP Pulse Ox 06/14/24 23:55 79 15 99 06/14/24 23:45 36.5 C 75 15 137/94 99 06/14/24 23:45 06/14/24 23:45 36.5 C 75 15 137/94 99 06/14/24 23:41 85 O2 Del Method 06/14/24 23:55 Room Air 06/14/24 23:45 Room Air 06/14/24 23:45 Room Air 06/14/24 23:45 Room Air 06/14/24 23:41 Laboratory Results 06/14/24 23:52 WBC 14.46 H RBC 3.89 L Hgb 11.7 L Hct 35.9 L MCV 92.3 MCH 30.1 MCHC 32.6 RDW Std Deviation 48.1 H RDW Coeff of Valerie 14.1 Plt Count 237 MPV 11.4 Immature Gran % (Auto) 0.3 Neut % (Auto) 69.2 Lymph % (Auto) 21.3 [place] % (Auto) 5.9 Eos % (Auto) 2.6 Baso % (Auto) 0.7 Neut # (Auto) 10.00 H Lymph # (Auto) 3.08 [place] # (Auto) 0.86 H Eos # (Auto) 0.38 Baso # (Auto) 0.10 Immature Gran # (Auto) 0.04 Sodium 138 Potassium 4.0 Chloride 105 Carbon Dioxide 25 Anion Gap 8 BUN 19 Creatinine 1.53 H Est Cr Clr Drug Dosing 28.0 eGFR 33.77 BUN/Creatinine Ratio 12.4 Glucose 189 H Calcium 8.5 L Total Bilirubin 0.5 AST 24 ALT 12 Alkaline Phosphatase 55 Troponin I High Sens 9.8 Total Protein 6.4 Albumin 3.7 Globulin 2.7 Albumin/Globulin Ratio 1.4 Lipase 75 Diagnostic Findings Chest X-Ray 06/14/24 23:55 EXAM: XR chest 1V portable CLINICAL HISTORY: Chest pain, nonspecific TECHNIQUE: An X-ray image of the chest is obtained in AP projection. COMPARISON: 10/19/2023 CR Chest FINDINGS: Pulmonary Parenchyma: Chest leads are seen Atelectatic band seen in left lung lower zone No evidence of consolidation, or focal opacities. No pulmonary nodules are identified. Mild blunting of right costophrenic angle seen No evidence of pleural effusion or pleural thickening on left side Heart and Mediastinum: Heart size is enlarged. Both jonathan appear prominent likely due to vascular congestion. Implantable loop recorder seen. Apparent density seen along the right paravertebral region Bony Thorax: Bony thorax appears intact without fractures or deformities. Soft Tissues: Soft tissues overlying the chest wall are unremarkable. IMPRESSION: 1. Redemonstration of cardiomegaly with bilateral hilar vascular congestion, showing apparent mild interval progression 2. Mild blunting of right costophrenic angle, which is evident in present examination, could be due to pleural thickening/effusion. If clinically required ultrasound may be obtained 3. Redemonstration of apparent density along the right paravertebral region, showing no significant change since last examination. This may be nonspecific, If clinically required CT scan may be obtained Electronically signed by Triston Arias 06-15-2024 01:40 AM Medications Administered 1L NSS Famotidine 20mg IV Code Status & VTE Plan Code Status DNR/DNI Supervising Physician Co-Signing Physician Notes Patient seen and examined, chart reviewed, case discussed with SAMANTA Funes and I agree with the assessment and plan as above PG Care Time/CCT Total # of Minutes Spent Total Time Spent with Patient: Total time spent is greater than 50% in coordination of care (as documented) at patient's floor/unit and/or counseling patient: Coding Level of Care Code 13899 INT INP/OBS CARE 3/75MIN Diagnoses Chest pain R07.9 Hypocalcemia E83.51 Chronic renal failure, stage 3b N18.32 Type 2 diabetes mellitus E11.9
[2024-06-15] MEDS ORDERED: ONDANSETRON INJ 2 MG/ML 2 ML VIAL IV PRN (04:05)
[2024-06-15] MEDS ORDERED: POLYETHYLENE (MIRALAX) 17 GM PACK PO PRN (04:05)
[2024-06-15] MEDS ORDERED: ALUMINUM/MAGNESIUM SUSP 30 ML UDC PO PRN (04:05)
[2024-06-15] MEDS ORDERED: ONDANSETRON 4 MG OD TAB PO PRN (04:29)
[2024-06-15] MEDS: CALCIUM CARBONATE 500 MG CHEWABLE TAB PO STA (04:39)
[2024-06-15 07:00] LABS: Troponin I High Sensitivity 8.4 pg/ml (0-14)
[2024-06-15 07:34] LABS: Calcium 8.2 mg/dl (8.6-10.3)
[2024-06-15] MEDS: metFORMIN HCL 500 MG TAB PO SCH (07:59)
[2024-06-15 08:02] VITALS: RESP 20
--- NOTE | 2024-06-15 08:20 | Electrocardiogram Report ---
Test Reason : Blood Pressure : */* mmHG Vent. Rate : 71 BPM Atrial Rate : 90 BPM P-R Int : * ms QRS Dur : 82 ms QT Int : 392 ms P-R-T Axes : * 19 77 degrees QTcB Int : 425 ms Sinus rhythm with 2nd degree A-V block (Mobitz I) Abnormal ECG When compared with ECG of 19-Oct-2023 19:51, Premature ventricular complexes are no longer Present Sinus rhythm is now with 2nd degree A-V block (Mobitz I) Confirmed by Jamey Trejo ([id number]) on 06/15/2024 8:20:19 AM Referred By: REFERRED SELF Confirmed By: Jamey Trejo
[2024-06-15] MEDS: DULoxetine HCL 30 MG CAP PO SCH (09:00)
[2024-06-15] MEDS: ASPIRIN 81 MG ECTAB PO SCH (09:00)
[2024-06-15] MEDS: APIXABAN 2.5 MG TAB PO SCH (09:00)
[2024-06-15] MEDS: carvediloL 6.25 MG TAB PO SCH (09:00)
[2024-06-15] MEDS: PANTOprazole 40 MG TAB PO SCH (09:00)
[2024-06-15] MEDS: allopurinoL 100 MG TAB PO SCH (09:00)
[2024-06-15] MEDS: ISOSORBIDE MONO EXTENDED REL 30 MG TABCR PO SCH (09:00)
--- NOTE | 2024-06-15 09:17 | Cardiology Consultation ---
Date of Consultation June 15, 2024 Assessment & Plan (1) Dizziness: (2) CAD (coronary artery disease): (3) Chest pain: (4) A-fib: Plan 1. Dizziness: This was her primary concern. She has had episodes of dizziness over time. These of all been paroxysmal. In the past she had a functioning loop recorder and no specific arrhythmia was identified that explained to her syncope or dizziness. She was felt to have episodes of high vagal tone which were similar to what she experienced yesterday. Currently resolved. 2. Chest pain: This appears to be a minor complaint from the patient. Her symptoms are not consistent with an acute coronary syndrome. Her chest pain was very focal in nature. Despite symptoms which last for a while she did not have any elevation in her biomarkers. I do not think we need to pursue this further. 3. Coronary disease: History of percutaneous intervention to the circumflex. Symptoms currently not consistent with an acute coronary syndrome. No other exertional symptoms recently. She will continue secondary prevention with apixaban, aspirin and high-dose atorvastatin. 4. Atrial fibrillation: On prior outpatient monitoring she was noted to have episodes consistent with atrial fibrillation. No overt symptoms. Episodes were brief and relatively infrequent. On systemic anticoagulation which is appropriately dosed based on her age and renal function. 5. Conduction abnormality: Occasionally she has what appears to be Mobitz 1 conduction. However, this is more consistent with some AV devonte disease and atrial ectopy. She also has an element of sinus node dysfunction. Although this has been documented previously on her loop recorder. In the past there is been no correlation between her symptoms of dizziness and arrhythmia. History of Present Illness Reason for Consultation: Dizziness, chest pain Requesting Physician: Jesús Attending Physician: Aamir Espinosa MD History of Present Illness The patient is an 83-year-old woman with an extensive cardiac history to include coronary artery disease status post percutaneous intervention a history of syncope and a variety of atrial arrhythmias including atrial fibrillation. Recently she has been doing well. She states he maintains an active lifestyle and is able to ambulate and perform housework with little limitation. She specifically denied any exertional chest discomfort or limiting dyspnea. She occasionally will have some episodes of dizziness and lightheadedness and these appear to be paroxysmal. She has not had syncope recently. No falls. She did suffer a left wrist fracture as a window fell on her wrist. Yesterday while sitting in watching her granddaughter she had the acute onset of dizziness, nausea and feeling hot and flushed. She reports vomiting several times. She also began to have some discomfort in the precordial area that was fairly focal in nature. She was not aware of overt palpitations. She did not actually lose consciousness. Based on the nature of her symptoms she presented to the emergency room and is advised to undergo observation overnight. Her symptoms appear to have resolved. She cannot recall any specific intervention which improved her symptoms. She reports being ambulatory around her room today without dizziness or lightheadedness. No current chest pain. No breathing difficulty. No palpitations overnight. Allergies Allergy/AdvReac Type Severity Reaction Status Date / Time oxycodone [From Percocet] AdvReac Intermediate Upset Verified 06/15/24 01:14 Stomach Home Medications Medication Instructions Recorded Confirmed Type atorvastatin 40 mg tablet 40 mg PO DAILY #30 tabs 09/01/21 06/15/24 Rx aspirin 81 mg tablet,delayed 81 mg PO QAM #90 tabs 01/02/22 06/15/24 Rx release isosorbide mononitrate 30 mg 30 mg PO QAM #30 tabs 08/18/22 06/15/24 Rx tablet,extended release 24 hr allopurinol 100 mg tablet 100 mg PO DAILY 12/04/22 06/15/24 History prednisone 20 mg tablet 20 mg PO DIRECTED PRN GOUT 12/04/22 06/15/24 History FLARE UPS metformin 1,000 mg tablet 1,000 mg PO DAILY 07/07/23 06/15/24 History carvedilol 6.25 mg tablet 6.25 mg PO BID #180 tabs 10/23/23 06/15/24 Rx apixaban 2.5 mg tablet (Eliquis) 2.5 mg PO BID #180 tabs 11/20/23 06/15/24 Rx duloxetine 30 mg capsule,delayed 30 mg PO DAILY 12/01/23 06/15/24 History release (Cymbalta) ondansetron HCl 4 mg tablet 4 mg PO Q8H PRN Nausea & Vomiting 12/01/23 06/15/24 History pantoprazole 40 mg tablet,delayed 40 mg PO BID #180 tabs 02/05/24 06/15/24 Rx release (Protonix) cyanocobalamin (vitamin B-12) 1,000 mcg IM MONTHLY 06/15/24 06/15/24 History 1,000 mcg/mL injection solution Patient History Medical History PONV (postoperative nausea and vomiting) History of kidney stones History of uterine cancer >40 years ago - surgery only HTN (hypertension) Hx of seizure disorder Only has had one seizure in 09/2022 - [facility] A-fib "Occasionally goes into A-fib. Most recently in October 2023" as per patients daughter - Eliquis [facility] History of multiple strokes Multiple "Mini" strokes as per daughter GERD (gastroesophageal reflux disease) Dysphagia Type 2 diabetes mellitus Diabetic peripheral neuropathy [place] (hard of hearing) Bilateral hearing aids. CAD (coronary artery disease) Chronic renal failure (CRF), stage 3b BRENNAN (acute kidney injury) Status post placement of implantable loop recorder [facility] - Neil Near syncope "Has come close to from low heart rate - has not actually passed out from it" as per daughter Right leg DVT 03/2019 - treated 3 months with eliquis (provoked by arthroscopic knee surgery) Surgical History Hx of lithotripsy Hx of cardiac cath multiple - with stents (5 total) [facility] Hx of cholecystectomy Hx of appendectomy History of coronary artery stent placement x5 [facility] Neil Hx of hysterectomy Hx of arthroscopy of right knee Family History Daughter , age 57 Coronary heart disease Congestive heart failure Father , age 71 Heart disease Mother , age 77 Heart disease Diabetes Coronary heart disease s/p CABG Kidney disease ESRD was on dialysis Social History Smoking Status: Never smoker Second Hand Exposure: No; Do You Dip or Chew Tobacco: No; Hx Alcohol Use: No Hx Substance Use: No Preferred Language: Cypriot Communication Ability: Effective 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 Mood affect appear normal. She answered all questions appropriately. HEENT: Sclerae are anicteric. Pupils are equal and reactive to light and accommodation. Extraocular movements were intact. Neuro: Cranial nerves intact Lungs: Lungs are clear to auscultation bilaterally. There are no rales wheezes or rhonchi. She has normal respiratory effort without use of accessory muscles. There is normal pulmonary excursion. Cardiac: The rhythm was regula with occasional ectopy. S1 and S2 were normal. There are no murmurs on examination. The PMI was not markedly displaced on palpation. Extremities: Patient has bilateral radial pulses that are equal in intensity. There is no evidence cyanosis or clubbing. There was no evidence of significant peripheral edema bilaterally. Skin: There are no rashes noted on examination today. Results & Data Vital Signs (Past 12 Hours) Vital Signs Temp Pulse Pulse Resp BP BP Pulse Ox 06/15/24 08:00 36.8 C 60 20 141/61 H 96 06/15/24 06:42 85 06/15/24 04:39 60 18 140/86 97 06/15/24 04:10 36.8 C 60 18 172/65 H 95 06/15/24 03:53 60 06/15/24 03:00 77 18 131/90 96 06/15/24 01:18 85 17 135/90 95 06/14/24 23:55 79 15 99 06/14/24 23:45 36.5 C 75 15 137/94 99 06/14/24 23:45 06/14/24 23:45 36.5 C 75 15 137/94 99 06/14/24 23:41 85 O2 Del Method 06/15/24 08:00 Room Air 06/15/24 06:42 06/15/24 04:39 Room Air 06/15/24 04:10 Room Air 06/15/24 03:53 06/15/24 03:00 Room Air 06/15/24 01:18 Room Air 06/14/24 23:55 Room Air 06/14/24 23:45 Room Air 06/14/24 23:45 Room Air 06/14/24 23:45 Room Air 06/14/24 23:41 Laboratory Results Abnormal Lab Results 06/14/24 06/15/24 23:52 06:10 WBC 14.46 H RBC 3.89 L Hgb 11.7 L Hct 35.9 L MCV 92.3 MCH 30.1 MCHC 32.6 RDW Std Deviation 48.1 H RDW Coeff of Valerie 14.1 Plt Count 237 MPV 11.4 Immature Gran % (Auto) 0.3 Neut % (Auto) 69.2 Lymph % (Auto) 21.3 [place] % (Auto) 5.9 Eos % (Auto) 2.6 Baso % (Auto) 0.7 Neut # (Auto) 10.00 H Lymph # (Auto) 3.08 [place] # (Auto) 0.86 H Eos # (Auto) 0.38 Baso # (Auto) 0.10 Immature Gran # (Auto) 0.04 Sodium 138 Potassium 4.0 Chloride 105 Carbon Dioxide 25 Anion Gap 8 BUN 19 Creatinine 1.53 H Est Cr Clr Drug Dosing 28.0 eGFR 33.77 BUN/Creatinine Ratio 12.4 Glucose 189 H Calcium 8.5 L 8.2 L Total Bilirubin 0.5 AST 24 ALT 12 Alkaline Phosphatase 55 Troponin I High Sens 9.8 8.4 Total Protein 6.4 Albumin 3.7 Globulin 2.7 Albumin/Globulin Ratio 1.4 Lipase 75 Procalcitonin 0.12 Diagnostic Findings Echocardiogram obtained 07/09/2020: Normal LV systolic function with ejection fraction of 60 65 percent. Severe biatrial dilation. Mild mitral regurgitation. Cardiac catheterization 10/2017: Patent stent in OM and diagonal. Nonobstructive RCA disease. 95 percent mid LAD stenosis. PCI of mid LAD maxim nosis. Cardiac catheterization 01/02/2022: Patent stents in the LAD, om 1 and om 2. mild InStent restenoses of the LAD estimated 40-50%. 70% stenosis of the circumflex between OM1 and OM2. I have added % lesion in the midportion of the distal PDA ( Small caliber vessel). PG Care Time/CCT Total # of Minutes Spent Total Time Spent with Patient: Total time spent is greater than 50% in coordination of care (as documented) at patient's floor/unit and/or counseling patient: Coding Level of Care Code 22089 INT INP/OBS CARE 3/75MIN Diagnoses Dizziness R42 Coronary artery disease involving [place] coronary artery of [place] heart without angina pectoris I25.10 Coronary Disease-Associated Artery/Lesion type: [place] artery [place] vs. transplanted heart: [place] heart Associated angina: without angina Chest pain R07.9 A-fib I48.91 (2) CAD (coronary artery disease) Coronary Disease-Associated Artery/Lesion type: [place] artery [place] vs. transplanted heart: [place] heart Associated angina: without angina Qualified Code(s): I25.10 - Atherosclerotic heart disease of [place] coronary artery without angina pectoris
[2024-06-15 10:43] VITALS: BP 127/72; PULSE 53; TEMP 97.7; O2SAT 95
--- NOTE | 2024-06-15 10:43 | XCELERA ---
[id number]
--- NOTE | 2024-06-15 11:36 | Discharge Summary ---
Discharge Summary Date of Service June 15, 2024 Principal Dx & Hospital Course #1 = Principal Diagnosis (1) Chest pain: (2) Hypocalcemia: (3) Chronic renal failure, stage 3b: (4) Type 2 diabetes mellitus: Plan 83-year-old female PMHx CAD s/p multiple PCI's, multiple CVAs, frequent ventricular ectopy, A-fib, HLD, HTN, GERD, chronic renal failure stage IIIb, and T2DM presenting via EMS for onset of chest pain starting at 1930 the day prior to arrival. ED evaluation reveals leukocytosis 14.46, H&H 11.7/35.9; CMP creatinine 1.53, glucose 189, calcium 8.5; troponin 9.8; lipase 75; CXR with redemonstration of cardiomegaly and bilateral hilar vascular congestion showing apparent mild interval progression, blunting of R costophrenic angle could be due to pleural thickening/effusion, and redemonstration of apparent density along right paravertebral region with no significant changes since last exam; EKG sinus rhythm with secondary AV block (Mobitz 1) at 71 bpm.; Provided with famotidine 20 mg IV and 1L NSS in ED. #Chest pain/CAD/HTN/HLD/Afib Significant cardiac history, s/p PCI of circumflex most recently; follows with cardiology, workup for syncope which had unclear etiology but episodes were consistent with high vagal tone possibly related to pontine infarcts or polyneuropathy, all preceded by significant GI symptoms as well as severe vomiting per cardiology note (01/06/2023). ASA, Eliquis, isosorbide mononitrate, carvedilol; statin d/c per patient. Low suspicion for ACS, suspect GI etiology more likely source however, given significant cardiac history, admission/cardiac r/o necessary. Does admit that "indigestion has been bothersome" recently. - CBC w/ leukocytosis 14.46 (recently on prednisone "here and there" and was for last 1-2 days per patietn), H/H 11.7/35.9 - CBC am - Troponin 9.8, pending repeat; EKG sinus with Mobitz I at 71bpm - CXR bilateral hilar vascular congestion, blunting R costophrenic angle (thickening vs effusion), redemonstration R paravertebral region density --> Procal pending given CXR findings and leukocytosis, however no F/C or coughing - Echo pending - Lipid panel from 2021 WNL, recently d/c statin (HELD AT ADMISSION DUE TO SUCH)- no repeat ordered at admission - Zofran prn N/V, Maalox prn dyspepsia, Tums x 1 - Consider cardiology consult in am - no consult at time of admission - Cardiology consult appreciated, no evidence of cardiogenic etiology - Syptoms likely 2nd to GERD #Hypocalcemia Asymptomatic currently, just under baseline. - Ca 8.5 - Calcium carbonate 1500mg po now - for mild hypocalcemia + for above (? GI etiology) - Repeat am #CKD stage IIIb H/o CKD, baseline Cr appears to be 1.4-1.7 - Cr 1.53 at admission - No LUTS --> No UA at admission - BMP am #T2DM At home regimen includes metformin; complicated by neuropathy, on Cymbalta and follows with neurology for such. - Most recent A1C 04/2022 @ 6.0% - Continue Metformin- No SSI added at admission - BSG ACHS - Adjust regimen as needed #GERD- Pantoprazole, continue #Gout- Allopurinol, prednisone prn (flares) #H/o Seizures- Per history, no medications for such and no recent seizure like activity Dispo: Admit, med/tele VTE prophylaxis: Jeanie This document was dictated utilizing Litepoint. Please excuse any grammatical errors that may be secondary to use of this software. Admission HPI Per Admitting Provider 83-year-old female PMHx CAD s/p multiple PCI's, multiple CVAs, frequent ventricular ectopy, A-fib, HLD, HTN, GERD, chronic renal failure stage IIIb, and T2DM presenting via EMS for onset of chest pain starting at 1930 the day prior to arrival. Patient states that she was at her granddaughter's house and feeling normal. She then went back to her house around 1930 and was sitting on the couch when she had a sudden onset of lightheadedness. States that she did not necessarily feel that she was going to pass out, but felt that her head was "floating" and then had a warm sensation "spread across" her chest. She states that over the past week, she has been having an "annoying" chest discomfort at her central chest without radiation and this was present at the time of this episode too. States that after the warm sensation, she had a sudden onset of nausea with vomiting x 1. States that she does have baseline BAZZI that has not worsened, and no SOB in general. Does have a baseline cough, nonproductive. Denies palpitations, abdominal pain, D/C, numbness/tingling, LUTS, URI symptoms, or F/C. No known sick contacts. Patient has been under a lot of emotional stress over the past year after losing multiple family members. EMS provided patient with 324 mg of aspirin and 1 sublingual dose of nitroglycerin. ED evaluation reveals leukocytosis 14.46, H&H 11.7/35.9; CMP creatinine 1.53, glucose 189, calcium 8.5; troponin 9.8; lipase 75; CXR with redemonstration of cardiomegaly and bilateral hilar vascular congestion showing apparent mild interval progression, blunting of R costophrenic angle could be due to pleural thickening/effusion, and redemonstration of apparent density along right paravertebral region with no significant changes since last exam; EKG sinus rhythm with secondary AV block (Mobitz 1) at 71 bpm.; Provided with famotidine 20 mg IV and 1L NSS in ED. Please see Dr. Monahan's attestation for adjustments/additions to treatment plan. Discharge Exam GENERAL APPEARANCE NAD, activity normal for age, well developed/ well nourished, no cyanosis, pallor, or diaphoresis. EYES lids/conjunctiva normal. EARS/NOSE/THROAT Mucous membranes moist, nares normal, lips/teeth normal uvula midline without oral pharyngeal erythema, exudate or swelling TMs normal bilaterally. No lymphangitis/lymphedema. HEAD/NECK normocephalic atraumatic, no facial trauma, neck is supple. RESPIRATORY respiratory effort normal, speaks in full sentences, no tripod position, no accessory muscle use. Lungs clear to auscultation without rhonchi, wheezes, rales CARDIAC Regular rate and rhythm, no edema. ABDOMINAL Soft, ND/NT. No evidence of fluid wave. No pulsatile masses on exam, rebound tenderness, Rapp sign or pain over Mcburney's point. MUSCLES/EXTREMITIES No abnormal range of motion, no swelling. SKIN Warm, pink and dry. No rashes, dermatoses, petechiae or lesions. NEUROLOGICAL Speech is clear and appropriate. Normal level of consciousness. Gait and coordination are normal. 5/5 strength in all extremities. PSYCH Normal mood and affect. Judgement/competence is appropriate Discharge Plan Discharge Items Patient Disposition: Home - Self-Care Reason For Visit: CHEST PAIN Discharge Diagnosis: atypical chest pain Activity: Resume your previous activity Non-emergency contact: Primary Care Provider Call non-emergency contact if: you have any medication questions Follow-up/Referrals: Marlin Rowe MD [Primary Care Provider] - Diet: Regular Addtl Attending Provider Instructions: Follow up with PMD in 2 weeks Pending Studies at Discharge: No Stand-Alone Forms: My [employer], Smoking Cessation Medications and DC Order Prescriptions: Continued isosorbide mononitrate 30 mg tablet extended release 24 hr 30 mg PO QAM Qty: 30 5RF Eliquis 2.5 mg tablet 2.5 mg PO BID Qty: 180 3RF prednisone 20 mg tablet 20 mg PO DIRECTED PRN (Reason: GOUT FLARE UPS) allopurinol 100 mg tablet 100 mg PO DAILY metformin 1,000 mg tablet 1,000 mg PO DAILY pantoprazole [Protonix] 40 mg tablet,delayed release (DR/EC) 40 mg PO BID Qty: 180 3RF carvedilol 6.25 mg tablet 6.25 mg PO BID Qty: 180 3RF Rx Instructions: must administer with a meal/food atorvastatin 40 mg tablet 40 mg PO DAILY Qty: 30 5RF Rx Instructions: PER PT "DON'T THINK I'M TAKING THIS MED". PER EXT MED HX--FILLED 06/03/24 FOR 90 DAYS. aspirin 81 mg Tablet,Delayed Release (Dr/Ec) 81 mg PO QAM Qty: 90 3RF ondansetron HCl 4 mg Tablet 4 mg PO Q8H PRN (Reason: Nausea & Vomiting) Rx Instructions: PER PT "OUT OF THIS MEDICATION, NEED NEW SCRIPT". duloxetine [Cymbalta] 30 mg capsule,delayed release(DR/EC) 30 mg PO DAILY cyanocobalamin (vitamin B-12) 1,000 mcg/mL Solution 1,000 mcg IM MONTHLY Rx Instructions: PER PT "OVER DUE" Discharge Orders: Discharge Order (Routine); Ordered 06/15/24 Ordered By: Aamir Espinosa Admission Data Admit Date/Time: 06/15/24 02:42 Attending Provider: Aamir Espinosa Admit Provider: Sandy Monahan Primary Care Provider: Marlin Rowe Other Providers: Sandy Monahan; Shawna Gates Hospital Stay Data Consultations 06/15/24 02:18 ED Decision to Admit Stat 06/15/24 07:36 Consult Cardiology Routine Pending Results Patient Have Any Pending Studies at Discharge: No Discharge Instructions Given to Patient (Per Discharging Provider) Follow up with PMD in 2 weeks Total Time Total Time Spent Total Time Spent (In Minutes): 50 Coding Level of Care Code 30083 INP/OBS DISCH >30 MIN Diagnoses Chest pain R07.9 Hypocalcemia E83.51 Chronic renal failure, stage 3b N18.32 Type 2 diabetes mellitus E11.9
== END 2024-06-15 13:27 | disposition home or self-care (01) ==
LOC: ED 23:29 → 2S 23:29 → SUATTDRO 06-15 02:42 → 2S 06-15 04:39

== ENCOUNTER 2024-11-16 16:20 | Observation (INO) ==
[2024-11-16 16:54] LABS: Hematocrit (blood only) 36.6 % (37.0-47.0); Hemoglobin 12.2 g/dl (12.0-16.0); Immature Granulocytes # (auto) 0.03 K/uL (0.01-0.20); Immature Granulocytes % (auto) 0.3 %; Mean Corpuscular Hemoglobin 30.5 pg (25.0-34.0); Mean Corpuscular Volume 91.5 fL (80.0-100.0); Platelet Count 279 K/uL (130-400); RDW Standard Deviation 46.8 fL (36.4-46.3); Red Blood Count 4.00 M/uL (4.20-5.40); White Blood Count 10.77 K/ul (4.8-10.8)
[2024-11-16 17:12] LABS: Alanine Aminotransferase 14.0 U/L (7-52); Albumin Globulin Ratio 1.3 (0.9-2); Alkaline Phosphatase 55.0 U/L (34-104); Anion Gap 6.0 (3-11); Bilirubin,Total 0.5 mg/dl (0.2-1.0); Blood Urea Nitrogen 13.0 mg/dl (6-23); Calcium 8.7 mg/dl (8.6-10.3); Carbon Dioxide 27.0 mmol/L (21-32); Chloride 106.0 mmol/L (98-107); Creatinine Clr Calc Pharmacy 25.7 ml/min; Globulin 2.8 gm/dl (2.5-4.0); Glucose 179.0 mg/dl (70-99(Fasting)); Lipase 38.0 U/L (11-82); Potassium 4.1 mmol/L (3.5-5.1); Sodium 139.0 mmol/L (136-145); Total Protein 6.5 gm/dl (6.0-8.3)
--- NOTE | 2024-11-16 17:50 | CT Scan Report ---
Clinical History: Headache. Technique: Axial computed tomography images were obtained of the brain from the vertex to the skull base without intravenous contrast. Findings: There is no sign of intracranial hemorrhage. There is normal motley-white matter differentiation with no sign of acute or old infarction. No midline shift or other form of herniation is identified. There is no hydrocephalus. No obvious mass lesion is seen on this noncontrast examination. The visualized portions of the orbits and paranasal sinuses appear unremarkable. The mastoid air cells appear clear Impression: Unremarkable noncontrast CT of the brain Electronically signed by Nehemias Ríso 11-16-2024 5:50 PM
--- NOTE | 2024-11-16 17:55 | CT Scan Report ---
Technique: Axial computed tomography images were obtained of the abdomen and pelvis without intravenous contrast. Findings: There is possible mild cirrhosis. No definite liver mass lesion is seen on this noncontrast study. The gallbladder has been removed. No bile duct dilatation is noted. The spleen is of normal size. No focal splenic lesion is evident. The pancreas appears normal with no sign of acute or chronic pancreatitis and no mass lesion noted. The pancreatic duct is of normal caliber. The adrenal glands appear unremarkable. No renal or proximal ureteral calculi are seen. There is no hydronephrosis or perinephric stranding. No definite renal mass lesion is identified. There is a 1.1 cm left renal cyst The aorta is of normal caliber. No abdominal adenopathy is seen. There is a small hiatal hernia. There is no sign of small bowel obstruction. The colon appears unremarkable. There is no definite sign of appendicitis. No free intraperitoneal fluid or air is identified. No distal ureteral or bladder calculi are seen. The bladder is decompressed. The iliac arteries are of normal caliber. No pelvic adenopathy is noted. The uterus has been removed There is mild subsegmental atelectasis in both lower lobes. Lumbar degenerative disc disease is seen. No fracture is identified. No focal osseous lesion is seen Impression: 1. Suspected mild cirrhosis 2. Small hiatal hernia 3. Small left renal cyst Electronically signed by Nehemias Ríos 11-16-2024 5:55 PM
[2024-11-16 18:15] LABS: INR 1.0 (0.9-1.1); Partial Thromboplastin Time 25 Seconds (21-31); Prothrombin Time 11.1 Seconds (9.0-12.0)
--- NOTE | 2024-11-16 18:22 | XRay Report ---
EXAM: Portable AP chest radiograph TECHNIQUE: AP portable radiograph of the chest was obtained. INDICATION: Shortness of breath Comparison: Chest radiograph June 14, 2024. FINDINGS: LINES and TUBES: Left chest wall loop recorder. CARDIOVASCULAR: Cardiac silhouette is stably enlarged in size. LUNGS/PLEURA: Mild interstitial pulmonary edema has worsened from previous. No focal consolidation identified. There appear to be small pleural fluids, increased from previous. No discernible pneumothorax. OSSEOUS/OTHER: No displaced acute osseous process identified. IMPRESSION: Interval worsening of the congestive changes of the cardiovascular system as above. Electronically signed by Elieser Thurston 11-16-2024 6:21 PM
--- NOTE | 2024-11-16 18:54 | History & Physical Report ---
Date of Service November 16, 2024 Assessment & Plan (1) Chest pain: (2) GERD (gastroesophageal reflux disease): (3) Vasovagal episode: (4) Shortness of breath on exertion: (5) Acute heart failure with preserved ejection fraction (HFpEF): Plan 84 year old female presents to the ER with presyncope and chest burning Chest burning and presyncope / Hx a. fib / CAD Appears similar to episode in May and suspected to be vasovagal at that time related to GI issues Possibly the same this time but plan on observation overnight Recommend routine pantoprazole rather than PRN as have recurrent symptoms and possibly leading to vasovagal events No prior arrhythmia noted on loop recorder with these episodes (she reports this is no longer working) although Mobitz 1 HB noted on EKG, monitor on telemetry for arrhythmia Could consider stopping/reducing carvedilol if having repeated vasovagal episodes as this is likely making them more likely as decreasing compensatory mechanism Continue Eliquis for a. fib/CAD, carvedilol, ISMN and atorvastatin for CAD Shortness of breath on exertion / acute heart failure with preserved ejection fraction Concerning similar symptoms to when she benefitted from stents previously Plan for stress echo tomorrow as long as troponins stable overnight Alternatively she has some pulmonary edema on chest XR possibly consistent with CHF and will give Lasix 20 mg IV and monitor response Consult cardiology tomorrow as requested by her daughter T2DM HbA1C with AM labs Continue metformin, no need for routine BSGs VTE Prophylaxis - Eliquis Disposition - observation to med/tele Admission and Anticipated Discharge Date Admission Date: November 16, 2024 History of Present Illness Chief Complaint: Presyncope Primary Care Provider: Marlin Rowe MD Arlene Vicente is an 84 year old female with known coronary artery disease with previous stents who presents to the ER with a presyncopal episode. Episode occurred around 2pm while sitting on the couch. Sudden onset dizziness and lightheadedness with feeling sick to stomach and chest burning sensation but no chest pain. No preceding eating or vasovagal precipitating events. She currently feels back to her baseline. She reports chronic intermittent throat burning sensation worse when she eats spicy foods. She does not take the pantoprazole regularly but rather as needed. No recent prednisone use for gout. She is confused whether she is taking duloxetine and atorvastatin. She reports taking the former not the latter but her medication pick ups suggest the opposite Her daughter also notes she has been more short of breath on exertion over the last month. No leg swelling, orthopnea or PND but she has noticed a dry cough while lying down. Allergies Allergy/AdvReac Type Severity Reaction Status Date / Time oxycodone [From Percocet] AdvReac Intermediate Upset Verified 10/25/24 10:59 Stomach Home Medications Medication Instructions Recorded Confirmed Type atorvastatin 40 mg tablet 40 mg PO DAILY #30 tabs 09/01/21 11/16/24 Rx aspirin 81 mg tablet,delayed 81 mg PO QAM #90 tabs 01/02/22 11/16/24 Rx release isosorbide mononitrate 30 mg 30 mg PO QAM #30 tabs 08/18/22 11/16/24 Rx tablet,extended release 24 hr allopurinol 100 mg tablet 100 mg PO DAILY 12/04/22 11/16/24 History metformin 1,000 mg tablet 1,000 mg PO QAM 07/07/23 11/16/24 History apixaban 2.5 mg tablet (Eliquis) 2.5 mg PO BID #180 tabs 11/20/23 11/16/24 Rx pantoprazole 40 mg tablet,delayed 40 mg PO BID #180 tabs 02/05/24 11/16/24 Rx release (Protonix) cyanocobalamin (vitamin B-12) 1,000 mcg IM MONTHLY 06/15/24 11/16/24 History 1,000 mcg/mL injection solution ondansetron 4 mg disintegrating 4 mg PO Q8H PRN nausea and 06/15/24 11/16/24 Rx tablet vomiting #30 tabs carvedilol 6.25 mg tablet 6.25 mg PO BID #180 tabs 10/10/24 11/16/24 Rx duloxetine 30 mg capsule,delayed 30 mg PO QAM 11/16/24 11/16/24 History release nitroglycerin 0.4 mg sublingual 0.4 mg sublingual UD PRN Chest Pain 11/16/24 11/16/24 History tablet Past Med/Surg History Problem List Acute heart failure with preserved ejection fraction (HFpEF) Shortness of breath on exertion Fracture of fifth metacarpal bone of left hand Chest pain (Acute) Dysphagia GERD (gastroesophageal reflux disease) Poor short term memory Decreased hearing of both ears Post-concussion vertigo Status post fall B12 deficiency History of multiple strokes Diabetic peripheral neuropathy Vasovagal episode Stroke Essential hypertension Multiple thyroid nodules Syncope (Acute) Pre-syncope BRENNAN (acute kidney injury) Arrhythmia Hypomagnesemia Ventricular bigeminy (Acute) S/P appendectomy H/O: hysterectomy S/P laparoscopic cholecystectomy H/O arthroscopy of right knee DM w/o complication type II History of coronary artery stent placement 5 stents Medical History Hypocalcemia Dizziness Vomiting Chronic renal failure, stage 3b CAD (coronary artery disease) PONV (postoperative nausea and vomiting) History of kidney stones History of uterine cancer >40 years ago - surgery only HTN (hypertension) Hx of seizure disorder Only has had one seizure in 09/2022 - Transported to [facility] from PCP office A-fib "Occasionally goes into A-fib. Most recently in October 2023" as per patients daughter - Eliquis [facility] History of multiple strokes Multiple "Mini" strokes as per daughter GERD (gastroesophageal reflux disease) Dysphagia Type 2 diabetes mellitus Diabetic peripheral neuropathy [place] (hard of hearing) Bilateral hearing aids. CAD (coronary artery disease) Chronic renal failure (CRF), stage 3b BRENNAN (acute kidney injury) Status post placement of implantable loop recorder [facility] - Neil Near syncope "Has come close to from low heart rate - has not actually passed out from it" as per daughter Right leg DVT 03/2019 - treated 3 months with eliquis (provoked by arthroscopic knee surgery) Surgical History Hx of lithotripsy Hx of cardiac cath multiple - with stents (5 total) [facility] Hx of cholecystectomy Hx of appendectomy History of coronary artery stent placement x5 [facility] Neil Hx of hysterectomy Hx of arthroscopy of right knee Family History Daughter , age 57 Coronary heart disease Congestive heart failure Father , age 71 Heart disease Mother , age 77 Heart disease Diabetes Coronary heart disease s/p CABG Kidney disease ESRD was on dialysis Social History Smoking Status: Never smoker Second Hand Exposure: No; Do You Dip or Chew Tobacco: No; Hx Alcohol Use: No Hx Substance Use: No Preferred Language: Afghan Communication Ability: Effective Dance Hall Host/Hostess Required: No Beliefs That Will Affect Care: None marital status: Current Living Situation: Alone Current Living Situation Comment: Lives at home w/ spouse current occupational status: retired current occupation: worked in [place] nearly 40 years Other Information That Helps Us Care for You: No other: 3 children; 1 daughter is Feels Safe at Home: Yes Safety Concerns: Feels Safe At This Time Assistive Devices: Denture - Upper, Denture - Lower, Hearing Aid - Bilateral, Hearing Aid - Left and Hearing Aid - Right Review of Systems Review of Systems: All systems reviewed & are unremarkable except as noted in HPI & below Physical Exam Constitutional: WD/WN, vitals as above Respiratory: normal respiratory effort, lungs clear to auscultation Cardiovascular: RRR, no murmur, no edema Gastrointestinal (Abdomen): normal bowel sounds, soft, nontender, no hepatosplenomegaly Psychiatric: A+Ox3, euthymic affect Results & Data Results & Data Vital Signs (Past 12 Hours) Vital Signs Temp Pulse Resp BP Pulse Ox O2 Del Method O2 Flow Rate 11/16/24 17:31 73 11/16/24 16:37 94 Room Air 11/16/24 16:25 Room Air 94 11/16/24 16:25 36.4 C L 57 L 20 163/112 H 94 Room Air Laboratory Results Abnormal lab results 11/16/24 11/16/24 Range/Units 16:33 16:37 RBC 4.00 L (4.20-5.40) M/uL Hct 36.6 L (37.0-47.0) % RDW Std Deviation 46.8 H (36.4-46.3) fL Neut # (Auto) 7.24 H (1.40-6.50) K/uL POC Anion Gap 15.0 L (16-25) mmol/L Creatinine 1.57 H (0.6-1.2) mg/dl POC Creatinine 1.7 H (0.6-1.3) mg/dl BUN/Creatinine Ratio 8.3 L (10-20) Glucose 179 H (70-99(Fasting)) mg/dl POC Glucose (other) 175 H (70-99) mg/dl Diagnostic Findings CT Head Clinical History: Headache. Technique: Axial computed tomography images were obtained of the brain from the vertex to the skull base without intravenous contrast. Findings: There is no sign of intracranial hemorrhage. There is normal motley-white matter differentiation with no sign of acute or old infarction. No midline shift or other form of herniation is identified. There is no hydrocephalus. No obvious mass lesion is seen on this noncontrast examination. The visualized portions of the orbits and paranasal sinuses appear unremarkable. The mastoid air cells appear clear Impression: Unremarkable noncontrast CT of the brain CXR EXAM: Portable AP chest radiograph TECHNIQUE: AP portable radiograph of the chest was obtained. INDICATION: Shortness of breath Comparison: Chest radiograph June 14, 2024. FINDINGS: LINES and TUBES: Left chest wall loop recorder. CARDIOVASCULAR: Cardiac silhouette is stably enlarged in size. LUNGS/PLEURA: Mild interstitial pulmonary edema has worsened from previous. No focal consolidation identified. There appear to be small pleural fluids, increased from previous. No discernible pneumothorax. OSSEOUS/OTHER: No displaced acute osseous process identified. IMPRESSION: Interval worsening of the congestive changes of the cardiovascular system as above. CT Abdo/Pelvis Technique: Axial computed tomography images were obtained of the abdomen and pelvis without intravenous contrast. Findings: There is possible mild cirrhosis. No definite liver mass lesion is seen on this noncontrast study. The gallbladder has been removed. No bile duct dilatation is noted. The spleen is of normal size. No focal splenic lesion is evident. The pancreas appears normal with no sign of acute or chronic pancreatitis and no mass lesion noted. The pancreatic duct is of normal caliber. The adrenal glands appear unre markable. No renal or proximal ureteral calculi are seen. There is no hydronephrosis or perinephric stranding. No definite renal mass lesion is identified. There is a 1.1 cm left renal cyst The aorta is of normal caliber. No abdominal adenopathy is seen. There is a small hiatal hernia. There is no sign of small bowel obstruction. The colon appears unremarkable. There is no definite sign of appendicitis. No free intraperitoneal fluid or air is identified. No distal ureteral or bladder calculi are seen. The bladder is decompressed. The iliac arteries are of normal caliber. No pelvic adenopathy is noted. The uterus has been removed There is mild subsegmental atelectasis in both lower lobes. Lumbar degenerative disc disease is seen. No fracture is identified. No focal osseous lesion is seen Impression: 1. Suspected mild cirrhosis 2. Small hiatal hernia 3. Small left renal cyst Medications Administered ER Medications Given: None ECG Rate (beats per minute): 71 Rhythm: normal sinus Findings: + mobitz I block Comparison ECG Date: from (June 15, 2024) Change: the following changes noted (PVCs no longer present) Code Status & VTE Plan Code Status DNR/DNI VTE Prophylaxis Plan VTE Prophylaxis will be ordered: Yes PG Care Time/CCT Total # of Minutes Spent Total Time Spent with Patient: Total time spent is greater than 50% in coordination of care (as documented) at patient's floor/unit and/or counseling patient: Coding Level of Care Code 48801 INT INP/OBS CARE 3/75MIN Diagnoses Chest pain R07.9 GERD (gastroesophageal reflux disease) K21.9 Vasovagal episode R55 Shortness of breath on exertion R06.02 Acute heart failure with preserved ejection fraction (HFpEF) I50.31
--- NOTE | 2024-11-16 19:08 | Emergency Department Note ---
History of Present Illness General Chief Complaint: Cardiac Assessment Stated Complaint: CHEST PAIN, NAUSA, DIZZY Time Seen by Provider: 11/16/24 16:22 History of Present Illness Provider Complaint: chest pain Time: 14:00 Duration: now resolved Onset: other (Occurred after taking a shower) Pain Location: substernal Pain Radiation: none Severity: severe Current Pain Intensity: 0 Quality: + heaviness (Pressure) Relieved By: + nitroglycerin Exacerbated By: + nothing Context: no recent illness, no recent surgery, no recent immobilization, no recent travel, no trauma/injury or no new medications Associated symptoms: + nausea, + vomiting and + other (Dizziness); no dyspnea, no syncope, no palpitations, no fever or no cough Home Medications Medication Instructions Recorded Confirmed Type atorvastatin 40 mg tablet 40 mg PO DAILY #30 tabs 09/01/21 11/16/24 Rx aspirin 81 mg tablet,delayed 81 mg PO QAM #90 tabs 01/02/22 11/16/24 Rx release isosorbide mononitrate 30 mg 30 mg PO QAM #30 tabs 08/18/22 11/16/24 Rx tablet,extended release 24 hr allopurinol 100 mg tablet 100 mg PO DAILY 12/04/22 11/16/24 History metformin 1,000 mg tablet 1,000 mg PO QAM 07/07/23 11/16/24 History apixaban 2.5 mg tablet (Eliquis) 2.5 mg PO BID #180 tabs 11/20/23 11/16/24 Rx pantoprazole 40 mg tablet,delayed 40 mg PO BID #180 tabs 02/05/24 11/16/24 Rx release (Protonix) cyanocobalamin (vitamin B-12) 1,000 mcg IM MONTHLY 06/15/24 11/16/24 History 1,000 mcg/mL injection solution ondansetron 4 mg disintegrating 4 mg PO Q8H PRN nausea and 06/15/24 11/16/24 Rx tablet vomiting #30 tabs carvedilol 6.25 mg tablet 6.25 mg PO BID #180 tabs 10/10/24 11/16/24 Rx duloxetine 30 mg capsule,delayed 30 mg PO QAM 11/16/24 11/16/24 History release nitroglycerin 0.4 mg sublingual 0.4 mg sublingual UD PRN Chest Pain 11/16/24 11/16/24 History tablet Allergies Allergy/AdvReac Type Severity Reaction Status Date / Time oxycodone [From Percocet] AdvReac Intermediate Upset Verified 10/25/24 10:59 Stomach Past Med/Surg History Problem List Fracture of fifth metacarpal bone of left hand Chest pain (Acute) Dysphagia GERD (gastroesophageal reflux disease) Poor short term memory Decreased hearing of both ears Post-concussion vertigo Status post fall B12 deficiency History of multiple strokes Diabetic peripheral neuropathy Vasovagal episode Stroke Essential hypertension Multiple thyroid nodules Syncope (Acute) Pre-syncope BREN[place] (acute kidney injury) Arrhythmia Hypomagnesemia Ventricular bigeminy (Acute) S/P appendectomy H/O: hysterectomy S/P laparoscopic cholecystectomy H/O arthroscopy of right knee DM w/o complication type II History of coronary artery stent placement 5 stents Medical History Hypocalcemia Dizziness Vomiting Chronic renal failure, stage 3b CAD (coronary artery disease) PONV (postoperative nausea and vomiting) History of kidney stones History of uterine cancer >40 years ago - surgery only HTN (hypertension) Hx of seizure disorder Only has had one seizure in 09/2022 - Transported to Replaced by [facility] from PCP office A-fib "Occasionally goes into A-fib. Most recently in October 2023" as per patients daughter - Eliquis [facility] History of multiple strokes Multiple "Mini" strokes as per daughter GERD (gastroesophageal reflux disease) Dysphagia Type 2 diabetes mellitus Diabetic peripheral neuropathy [place] (hard of hearing) Bilateral hearing aids. CAD (coronary artery disease) Chronic renal failure (CRF), stage 3b BRENNAN (acute kidney injury) Status post placement of implantable loop recorder [facility] - Neil Near syncope "Has come close to from low heart rate - has not actually passed out from it" as per daughter Right leg DVT 03/2019 - treated 3 months with eliquis (provoked by arthroscopic knee surgery) Surgical History Hx of lithotripsy Hx of cardiac cath multiple - with stents (5 total) Replaced by [facility] Hx of cholecystectomy Hx of appendectomy History of coronary artery stent placement x5 [facility] Neil Hx of hysterectomy Hx of arthroscopy of right knee Family History Daughter , age 57 Coronary heart disease Congestive heart failure Father , age 71 Heart disease Mother , age 77 Heart disease Diabetes Coronary heart disease s/p CABG Kidney disease ESRD was on dialysis Social History Smoking Status: Never smoker Second Hand Exposure: No; Do You Dip or Chew Tobacco: No; Hx Alcohol Use: No Hx Substance Use: No Preferred Language: Belarusian Communication Ability: Effective Hardware Developer Required: No Beliefs That Will Affect Care: None marital status: Current Living Situation: Alone Current Living Situation Comment: Lives at home w/ spouse current occupational status: retired current occupation: worked in [employer] nearly 40 years other: 3 children; 1 daughter is Feels Safe at Home: Yes Assistive Devices: Denture - Upper, Denture - Lower, Glasses and Hearing Aid - Bilateral Physical Exam Vital Signs Vital Signs - 24 hr 11/16/24 16:25 11/16/24 16:25 11/16/24 16:37 Temperature 36.4 C L Temperature Source Oral Pulse Rate 57 L Respiratory Rate 20 Respiratory Effort / Characteristics Non-Labored Spontaneous Respiratory Depth Normal Respiratory Pattern Regular Blood Pressure 163/112 H Blood Pressure Mean 129 Pulse Oximetry 94 94 Oxygen Delivery Method Room Air Room Air Room Air Oxygen Flow Rate 94 Sepsis Recent Fever Within 48 Hours No Sepsis New/Unexplained Change in Mental Status N/A Sepsis Action Taken by Nursing No Action Required 11/16/24 17:30 11/16/24 17:31 11/16/24 18:30 Temperature Temperature Source Pulse Rate 62 73 62 Respiratory Rate 20 22 Respiratory Effort / Characteristics Respiratory Depth Respiratory Pattern Blood Pressure 153/82 H 119/68 Blood Pressure Mean 113 98 Pulse Oximetry 98 97 Oxygen Delivery Method Room Air Room Air Oxygen Flow Rate Sepsis Recent Fever Within 48 Hours Sepsis New/Unexplained Change in Mental Status Sepsis Action Taken by Nursing Physical Exam GENERAL: oriented to person, place, and time. appears well-developed and well- nourished. HENT: Exam performed. - Head: Normocephalic and atraumatic. EYES: Conjunctivae and EOM are normal. Right eye exhibits no discharge. Left eye exhibits no discharge. No scleral icterus. NECK: Normal range of motion. Neck supple. No JVD present. CV: Normal rate, regular rhythm, normal heart sounds and intact distal pulses. There is no peripheral edema. Palpable radial pulses bue. PULM/CHEST: Effort normal and breath sounds normal. No respiratory distress. No stridor. no wheezes. no rales. ABD: The abdomen is soft. There is no tenderness. NEURO: Motor and sensation grossly intact. SKIN: Skin is warm and dry. He is not diaphoretic. PSYCH: normal mood and affect. Behavior is normal. Judgment and thought content normal. Course Course 1621: The patient was evaluated in room B11A. A complete history and physical exam was performed Cardiac monitoring: An order was placed for continuous cardiac monitoring. The monitor shows a rate of 70 with sinus rhythm interpreted by me 181: Vital signs stable. Labs and imaging are unremarkable. Patient continues to report no chest pain status post sublingual nitroglycerin administration at home. Patient will be admitted for chest pain rule out ACS. Medical Decision Making Laboratory Data Attestation: I reviewed the patient's lab results. 11/16/24 16:33 11/16/24 16:33 Labs: Lab Results 11/16/24 11/16/24 11/16/24 Range/Units 16:33 16:37 17:39 WBC 10.77 (4.8-10.8) K/ul RBC 4.00 L (4.20-5.40) M/uL Hgb 12.2 (12.0-16.0) g/dl POC Hgb 12.9 (12.0-16.0) g/dl Hct 36.6 L (37.0-47.0) % POC Hct 38 (37-47) % MCV 91.5 (80.0-100.0) fL MCH 30.5 (25.0-34.0) pg MCHC 33.3 (32.0-36.0) g/dL RDW Std Deviation 46.8 H (36.4-46.3) fL RDW Coeff of Valerie 13.8 (11.5-14.5) % Plt Count 279 (130-400) K/uL MPV 11.8 (9.4-12.4) fL Immature Gran % (Auto) 0.3 % Neut % (Auto) 67.2 % Lymph % (Auto) 25.3 % [place] % (Auto) 5.0 % Eos % (Auto) 1.4 % Baso % (Auto) 0.8 % Neut # (Auto) 7.24 H (1.40-6.50) K/uL Lymph # (Auto) 2.72 (1.20-3.40) K/uL [place] # (Auto) 0.54 (0.11-0.59) K/uL Eos # (Auto) 0.15 (0.00-0.50) K/uL Baso # (Auto) 0.09 (0.00-0.20) K/uL Immature Gran # (Auto) 0.03 (0.01-0.20) K/uL PT Cancelled 11.1 INR Cancelled 1.0 APTT Cancelled 25 PTT Ratio Cancelled 0.9 POC Sodium 140 (135-144) mmol/L Sodium 139 (136-145) mmol/L POC Potassium 4.1 (3.3-5.0) mmol/L Potassium 4.1 (3.5-5.1) mmol/L POC Chloride 105 (101-112) mmol/L Chloride 106 (98-107) mmol/L Carbon Dioxide 27 (21-32) mmol/L POC Total CO2 25 (24-31) mmol/L Anion Gap 6 (3-11) POC Anion Gap 15.0 L (16-25) mmol/L POC BUN 13 (7-18) mg/dl BUN 13 (6-23) mg/dl Creatinine 1.57 H (0.6-1.2) mg/dl POC Creatinine 1.7 H (0.6-1.3) mg/dl Est Cr Clr Drug Dosing 25.7 ml/min eGFR 32.53 BUN/Creatinine Ratio 8.3 L (10-20) Glucose 179 H (70-99(Fasting)) mg/dl POC Glucose (other) 175 H (70-99) mg/dl Calcium 8.7 (8.6-10.3) mg/dl POC Ioniz Calcium Reinaldo 1.13 (1.12-1.32) mmol/l Total Bilirubin 0.5 (0.2-1.0) mg/dl AST 25 (13-39) U/L ALT 14 (7-52) U/L Alkaline Phosphatase 55 (34-104) U/L Troponin I High Sens 9.1 (0-14) pg/ml Total Protein 6.5 (6.0-8.3) gm/dl Albumin 3.7 (3.4-5.0) gm/dl Globulin 2.8 (2.5-4.0) gm/dl Albumin/Globulin Ratio 1.3 (0.9-2) Lipase 38 (11-82) U/L Imaging Data Chest x-ray: Attestation: I personally reviewed and interpreted this imaging study as follows: My impression: Chest x-ray: Cardiomegaly with mild cephalization Radiologist's impression: EXAM: Portable AP chest radiograph TECHNIQUE: AP portable radiograph of the chest was obtained. INDICATION: Shortness of breath Comparison: Chest radiograph June 14, 2024. FINDINGS: LINES and TUBES: Left chest wall loop recorder. CARDIOVASCULAR: Cardiac silhouette is stably enlarged in size. LUNGS/PLEURA: Mild interstitial pulmonary edema has worsened from previous. No focal consolidation identified. There appear to be small pleural fluids, increased from previous. No discernible pneumothorax. OSSEOUS/OTHER: No displaced acute osseous process identified. IMPRESSION: Interval worsening of the congestive changes of the cardiovascular system as above. Electronically signed by Elieser Thurston 11-16-2024 6:[address] scan - head: Radiologist's impression: Clinical History: Headache. Technique: Axial computed tomography images were obtained of the brain from the vertex to the skull base without intravenous contrast. Findings: There is no sign of intracranial hemorrhage. There is normal motley-white matter differentiation with no sign of acute or old infarction. No midline shift or other form of herniation is identified. There is no hydrocephalus. No obvious mass lesion is seen on this noncontrast examination. The visualized portions of the orbits and paranasal sinuses appear unremarkable. The mastoid air cells appear clear Impression: Unremarkable noncontrast CT of the brain Electronically signed by Nehemias Ríos 11-16-2024 5:50 PM Dictated: 11/16/24 1716 Transcribed: CT scan - abdomen: Radiologist's impression: pelvis without intravenous contrast. Findings: There is possible mild cirrhosis. No definite liver mass lesion is seen on this noncontrast study. The gallbladder has been removed. No bile duct dilatation is noted. The spleen is of normal size. No focal splenic lesion is evident. The pancreas appears normal with no sign of acute or chronic pancreatitis and no mass lesion noted. The pancreatic duct is of normal caliber. The adrenal glands appear unremarkable. No renal or proximal ureteral calculi are seen. There is no hydronephrosis or perinephric stranding. No definite renal mass lesion is identified. There is a 1.1 cm left renal cyst The aorta is of normal caliber. No abdominal adenopathy is seen. There is a small hiatal hernia. There is no sign of small bowel obstruction. The colon appears unremarkable. There is no definite sign of appendicitis. No free intraperitoneal fluid or air is identified. No distal ureteral or bladder calculi are seen. The bladder is decompressed. The iliac arteries are of normal caliber. No pelvic adenopathy is noted. The uterus has been removed There is mild subsegmental atelectasis in both lower lobes. Lumbar degenerative disc disease is seen. No fracture is identified. No focal osseous lesion is seen Impression: 1. Suspected mild cirrhosis 2. Small hiatal hernia 3. Small left renal cyst Electronically signed by Nehemias Ríos 11-16-2024 5:55 PM Dictated: 11/16/24 [id number] Transcribed: ECG Data Attestation: I personally reviewed and interpreted this ECG as follows: Rate (beats per minute): 67 Rhythm: normal sinus Findings: + 1st degree AV block; no ST depression, no ST elevation or no prolonged QT MDM Narrative 1622: The patient was evaluated in room B11A. A complete history and physical exam was performed Cardiac monitoring: An order was placed for continuous cardiac monitoring. The monitor shows a rate of 70 with sinus rhythm interpreted by me 1810: Vital signs stable. Labs and imaging are unremarkable. Patient continues to report no chest pain status post sublingual nitroglycerin administration at home. Patient will be admitted for chest pain rule out ACS. Impression & Plan Chest pain Discharge Plan Visit Data Chief Complaint: Cardiac Assessment Stated Complaint: CHEST PAIN, NAUSA, DIZZY ED Provider: Emil Conklin Discharge Problem: Chest pain Patient Disposition: Being Evaluated by Hospitalist Condition: Fair Forms Stand Alone Forms: My [facility] Prescriptions Prescriptions: No Action isosorbide mononitrate 30 mg tablet extended release 24 hr 30 mg PO QAM Qty: 30 5RF Eliquis 2.5 mg tablet 2.5 mg PO BID Qty: 180 3RF carvedilol 6.25 mg tablet 6.25 mg PO BID Qty: 180 3RF Rx Instructions: must administer with a meal/food allopurinol 100 mg tablet 100 mg PO DAILY metformin 1,000 mg tablet 1,000 mg PO QAM pantoprazole [Protonix] 40 mg tablet,delayed release (DR/EC) 40 mg PO BID Qty: 180 3RF atorvastatin 40 mg tablet 40 mg PO DAILY Qty: 30 5RF aspirin 81 mg Tablet,Delayed Release (Dr/Ec) 81 mg PO QAM Qty: 90 3RF nitroglycerin 0.4 mg tablet, sublingual 0.4 mg sublingual UD PRN (Reason: Chest Pain) duloxetine 30 mg capsule,delayed release(DR/EC) 30 mg PO QAM cyanocobalamin (vitamin B-12) 1,000 mcg/mL Solution 1,000 mcg IM MONTHLY ondansetron 4 mg tablet,disintegrating 4 mg PO Q8H PRN (Reason: nausea and vomiting) Qty: 30 0RF Referrals Referrals: Marlin Rowe MD [Primary Care Provider] -
[2024-11-16] MEDS: FUROSEMIDE INJ 20 MG/2 ML VIAL IV STA (20:03)
[2024-11-16] MEDS ORDERED: ONDANSETRON 4 MG OD TAB PO PRN (21:23)
[2024-11-16] MEDS: APIXABAN 2.5 MG TAB PO SCH (21:42)
[2024-11-16 23:38] LABS: Total Protein Urine Random < 4.0 mg/dl (0-11.9)
[2024-11-17 07:26] LABS: Hematocrit (blood only) 34.7 % (37.0-47.0); Hemoglobin 11.4 g/dl (12.0-16.0); Immature Granulocytes # (auto) 0.03 K/uL (0.01-0.20); Immature Granulocytes % (auto) 0.3 %; Mean Corpuscular Hemoglobin 30.1 pg (25.0-34.0); Mean Corpuscular Volume 91.6 fL (80.0-100.0); Platelet Count 246 K/uL (130-400); RDW Standard Deviation 47.6 fL (36.4-46.3); Red Blood Count 3.79 M/uL (4.20-5.40); White Blood Count 9.79 K/ul (4.8-10.8)
[2024-11-17 07:45] LABS: Anion Gap 6.0 (3-11); Blood Urea Nitrogen 15.0 mg/dl (6-23); Calcium 8.3 mg/dl (8.6-10.3); Carbon Dioxide 31.0 mmol/L (21-32); Chloride 102.0 mmol/L (98-107); Cholesterol 184.0 mg/dl (0-200); Creatinine Clr Calc Pharmacy 26.1 ml/min; Glucose 129.0 mg/dl (70-99(Fasting)); HDL Cholesterol 38.0 mg/dl; Potassium 4.5 mmol/L (3.5-5.1); Sodium 139.0 mmol/L (136-145); Triglycerides 143.0 mg/dl (0-150)
[2024-11-17 07:54] LABS: Magnesium 1.5 mg/dl (1.7-2.4)
[2024-11-17 08:52] LABS: Hemoglobin A1C 8.4 % (4.5-5.6)
[2024-11-17] MEDS ORDERED: ALUMINUM/MAGNESIUM/SIMETH (MAALOX MAX) 30 ML UDC PO PRN (09:00)
--- NOTE | 2024-11-17 09:25 | Cardiology Consultation ---
Date of Consultation November 17, 2024 Assessment & Plan (1) Chest pain: (2) Pre-syncope: (3) CAD (coronary artery disease): Plan 1. Chest discomfort: Her description of chest discomfort is atypical but she tells me it preceded her diagnosis of coronary disease, however it does not mean that it was related to the coronary artery disease. I suspect it is not due to coronary disease. 2. Presyncope: She has a long history of presyncope and syncope, she presents with presyncope associate with nausea and vomiting which has been her pattern. She had a loop recorder in place (which is no longer functional) and an arrhythmia was not identified with these symptoms. I do not think they are arrhythmic. 3. Coronary disease: She has documented coronary artery disease, that was identified at catheterization when she presented with symptoms similar to what she is having now, but I am not convinced that she was symptomatic at the time. Coronary disease was identified and treated but may not be related to her symptoms. History of Present Illness Reason for Consultation: Lightheadedness, chest discomfort Attending Physician: Vladimir Park MD History of Present Illness This is an 84-year-old woman who has a long history of lightheadedness associated with GI symptoms, as well as episodes of syncope. She has had a loop recorder implanted although during the symptoms I believe has never had a arrhythmia identified and this is felt not to be cardiac. On January 02, 2022 she had coronary angiography where she had stenosis of mid twos marginal branch and underwent PCI at that time. Apparently she felt better subsequently although she tells me that she had the same type of symptoms before that was done. She also describes a warm bandlike sensation across her chest, this occurs from time to time and is often associated with the lightheadedness. On this admission on November 16, 2024 she describes getting out of the shower and then afterwards having lightheadedness and presyncope requiring her to sit down, she had nausea and vomiting and also had this warm band across her chest. She cannot give me a precise time but it was definitely not 1/2-hour in duration, probably minutes. It did not radiate. She feels it is similar to her symptoms prior to identification of coronary artery disease. Evaluation here included an electrocardiogram which shows sinus rhythm at 67 bpm and a possible inferior infarct but no acute changes. Her last echocardiogram was June 15, 2024 where she had normal left ventricular systolic function but she is having an echo done now. High-sensitivity troponin measurements x 3 were normal without a trend. Her creatinine is somewhat elevated but otherwise laboratory studies are generally unremarkable. Since admission she has not had recurrent chest discomfort and she has no significant palpitations. She has not had exertional chest discomfort. Allergies Allergy/AdvReac Type Severity Reaction Status Date / Time oxycodone [From Percocet] AdvReac Intermediate Upset Verified 10/25/24 10:59 Stomach Home Medications Medication Instructions Recorded Confirmed Type atorvastatin 40 mg tablet 40 mg PO DAILY #30 tabs 09/01/21 11/16/24 Rx aspirin 81 mg tablet,delayed 81 mg PO QAM #90 tabs 01/02/22 11/16/24 Rx release isosorbide mononitrate 30 mg 30 mg PO QAM #30 tabs 08/18/22 11/16/24 Rx tablet,extended release 24 hr allopurinol 100 mg tablet 100 mg PO DAILY 12/04/22 11/16/24 History metformin 1,000 mg tablet 1,000 mg PO QAM 07/07/23 11/16/24 History pantoprazole 40 mg tablet,delayed 40 mg PO BID #180 tabs 02/05/24 11/16/24 Rx release (Protonix) cyanocobalamin (vitamin B-12) 1,000 mcg IM MONTHLY 06/15/24 11/16/24 History 1,000 mcg/mL injection solution ondansetron 4 mg disintegrating 4 mg PO Q8H PRN nausea and 06/15/24 11/16/24 Rx tablet vomiting #30 tabs nitroglycerin 0.4 mg sublingual 0.4 mg sublingual UD PRN Chest Pain 11/16/24 11/16/24 History tablet apixaban 2.5 mg tablet (Eliquis) 2.5 mg PO BID #180 tabs 11/17/24 Rx carvedilol 3.125 mg tablet 3.125 mg PO BID #60 tabs 11/17/24 Rx duloxetine 30 mg capsule,delayed 30 mg PO QAM 30 days #30 caps 11/18/24 Rx release Patient History Medical History Hypocalcemia Dizziness Vomiting Chronic renal failure, stage 3b CAD (coronary artery disease) PONV (postoperative nausea and vomiting) History of kidney stones History of uterine cancer >40 years ago - surgery only HTN (hypertension) Hx of seizure disorder Only has had one seizure in 09/2022 - Transported to [facility] from PCP office A-fib "Occasionally goes into A-fib. Most recently in October 2023" as per patients daughter - Eliquis [facility] History of multiple strokes Multiple "Mini" strokes as per daughter GERD (gastroesophageal reflux disease) Dysphagia Type 2 diabetes mellitus Diabetic peripheral neuropathy GAMBELL (hard of hearing) Bilateral hearing aids. CAD (coronary artery disease) Chronic renal failure (CRF), stage 3b BRENNAN (acute kidney injury) Status post placement of implantable loop recorder [facility] - Neil Near syncope "Has come close to from low heart rate - has not actually passed out from it" as per daughter Right leg DVT 03/2019 - treated 3 months with eliquis (provoked by arthroscopic knee surgery) Surgical History Hx of lithotripsy Hx of cardiac cath multiple - with stents (5 total) [facility] Hx of cholecystectomy Hx of appendectomy History of coronary artery stent placement x5 [facility] Neil Hx of hysterectomy Hx of arthroscopy of right knee Family History Daughter , age 57 Coronary heart disease Congestive heart failure Father , age 71 Heart disease Mother , age 77 Heart disease Diabetes Coronary heart disease s/p CABG Kidney disease ESRD was on dialysis Social History Smoking Status: Never smoker Second Hand Exposure: No; Do You Dip or Chew Tobacco: No; Hx Alcohol Use: No Hx Substance Use: No Preferred Language: Occitan Communication Ability: Effective 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 HEENT: Unremarkable Neck: No jugular venous distention, carotid pulses are normal and equal bilaterally without bruits. Pulmonary: Clear to auscultation bilaterally. Cardiac: Regular rhythm with no murmur, gallop or rub. Abdomen: Soft, nontender with normal bowel sounds. Extremities: No edema. Distal pulses intact. Neurologic: No focal findings. Gait is steady. Skin: No rash, ecchymoses or petechiae. Results & Data Vital Signs (Past 12 Hours) Vital Signs Temp Pulse Pulse Resp BP Pulse Ox O2 Del Method 11/17/24 07:34 36.5 C 96 H 10 L 140/62 97 Room Air 11/17/24 02:47 36.6 C 51 L 18 102/59 L 96 Room Air 11/16/24 23:33 64 11/16/24 22:27 62 11/16/24 22:11 36.7 C 60 18 193/73 H 96 Room Air Laboratory Results Cardiac Enzymes 11/16/24 11/16/24 11/16/24 Range/Units 16:33 19:58 21:42 AST 25 (13-39) U/L Troponin I High Sens 9.1 11.1 (0-14) pg/ml B-Natriuretic Peptide 191 H (0-100) pg/ml 11/17/24 Range/Units 07:00 AST (13-39) U/L Troponin I High Sens 11.7 (0-14) pg/ml B-Natriuretic Peptide (0-100) pg/ml Coagulation 11/16/24 11/16/24 11/16/24 Range/Units 16:33 17:39 21:42 PT Cancelled 11.1 APTT Cancelled 25 B-Natriuretic Peptide 191 H (0-100) pg/ml Lipids 11/17/24 Range/Units 07:00 Triglycerides 143 (0-150) mg/dl Cholesterol 184 (0-200) mg/dl HDL Cholesterol 38 mg/dl Cholesterol/HDL Ratio 4.8 (0-5) CBC 11/16/24 11/17/24 Range/Units 16:33 07:00 WBC 10.77 9.79 (4.8-10.8) K/ul RBC 4.00 L 3.79 L (4.20-5.40) M/uL Hgb 12.2 11.4 L (12.0-16.0) g/dl Hct 36.6 L 34.7 L (37.0-47.0) % Plt Count 279 246 (130-400) K/uL Neut # (Auto) 7.24 H 5.47 (1.40-6.50) K/uL Lymph # (Auto) 2.72 3.40 (1.20-3.40) K/uL [place] # (Auto) 0.54 0.60 H (0.11-0.59) K/uL Eos # (Auto) 0.15 0.20 (0.00-0.50) K/uL Baso # (Auto) 0.09 0.09 (0.00-0.20) K/uL Comprehensive Metabolic Panel 11/16/24 11/17/24 Range/Units 16:33 07:00 Sodium 139 139 (136-145) mmol/L Potassium 4.1 4.5 (3.5-5.1) mmol/L Chloride 106 102 (98-107) mmol/L Carbon Dioxide 27 31 (21-32) mmol/L BUN 13 15 (6-23) mg/dl Creatinine 1.57 H 1.53 H (0.6-1.2) mg/dl Glucose 179 H 129 H (70-99(Fasting)) mg/dl Calcium 8.7 8.3 L (8.6-10.3) mg/dl AST 25 (13-39) U/L ALT 14 (7-52) U/L Alkaline Phosphatase 55 (34-104) U/L Total Protein 6.5 (6.0-8.3) gm/dl Albumin 3.7 (3.4-5.0) gm/dl Intake and Output 11/16/24 11/17/24 11/17/24 22:59 06:59 14:59 Intake Total 240 / 360 120 / 360 Output Total 400 / 400 Balance 240 / -40 -280 / -40 Intake: Oral 240 / 360 120 / 360 Output: Urine 400 / 400 Other: Weight 75 kg 73.1 kg Weight Measurement Method Standing Scale Standing Scale PG Care Time/CCT Total # of Minutes Spent Total Time Spent with Patient: Total time spent is greater than 50% in coordination of care (as documented) at patient's floor/unit and/or counseling patient: Coding Level of Care Code 61591 INT INP/OBS CARE MIN Diagnoses Chest pain R07.9 Pre-syncope R55 Coronary artery disease involving cherokee coronary artery of cherokee heart without angina pectoris I25.10 Associated angina: without angina Coronary Disease-Associated Artery/Lesion type: cherokee artery [place] vs. transplanted heart: cherokee heart (3) CAD (coronary artery disease) Associated angina: without angina Coronary Disease-Associated Artery/Lesion type: cherokee artery [place] vs. transplanted heart: cherokee heart Qualified Code (s): I25.10 - Atherosclerotic heart disease of cherokee coronary artery without angina pectoris
[2024-11-17] MEDS: MAGNESIUM SULFATE / D5W 1 GM/100 ML BAG IV SCH (11:05)
[2024-11-17] MEDS: ASPIRIN 81 MG ECTAB PO SCH (11:10)
[2024-11-17] MEDS: ATORVASTATIN 40 MG TAB PO SCH (11:11)
[2024-11-17] MEDS: ISOSORBIDE MONO EXTENDED REL 30 MG TABCR PO SCH (11:12)
[2024-11-17 15:27] VITALS: BP 123/70; RESP 14; TEMP 97.9; O2SAT 95
--- NOTE | 2024-11-17 16:35 | Electrocardiogram Report ---
Test Reason : Blood Pressure : */* mmHG Vent. Rate : 59 BPM Atrial Rate : 59 BPM P-R Int : 204 ms QRS Dur : 86 ms QT Int : 474 ms P-R-T Axes : -7 7 66 degrees QTcB Int : 469 ms Sinus bradycardia with Premature atrial complexes Otherwise normal ECG When compared with ECG of 16-Nov-2024 16:29, (unconfirmed) Premature atrial complexes are now Present Criteria for Inferior infarct are no longer Present T wave inversion no longer evident in Inferior leads Confirmed by Mitchell Westbrook ([id number]) on 11/17/2024 4:35:25 PM Referred By: REFERRED SELF Confirmed By: Mitchell Westbrook
--- NOTE | 2024-11-17 18:22 | XCELERA ---
[id number]
--- NOTE | 2024-11-17 18:41 | Discharge Summary ---
Discharge Summary Date of Service November 17, 2024 Principal Dx & Hospital Course #1 = Principal Diagnosis (1) Chest pain: (2) GERD (gastroesophageal reflux disease): (3) Vasovagal episode: (4) Shortness of breath on exertion: (5) Acute heart failure with preserved ejection fraction (HFpEF): Plan Arlene Vicente is an 84 year old female observed at [facility] from November 16 - 2024 due to dizziness, chest pain and nausea. She has had multiple similar episodes in the past which do not appear related to coronary artery disease. Suspect this was more vasovagal due to gastrointestinal reflux. Recommend she takes pantoprazole regularly rather than as needed to see if this reduces her episodes and helps with her cough. She has remained symptom free since admission. Stress echocardiogram was performed mainly due to shortness of breath on exertion and was unremarkable. Though some concern of pulmonary edema on CXR; lung POCUS was clear and no leg edema to suggest heart failure as the cause but recommend she follows up with cardiology if this shortness of breath is ongoing. HbA1C was 8.4. We discussed increasing her diabetes medications but she also notes a worse diet over the summer and wishes to follow up with her primary care physician regarding this. On discussion with her stage electrician recommended trial of lowering carvedilol dose as prescribed to see if this reduces your vasovagal episodes. Notes For Next Care Provider PCP follow up for diabetes management Follow up cardiology for shortness of breath Medication Changes From Visit Reduced carvedilol dose to see if this reduces number of presyncopal events Admission HPI Per Admitting Provider Arlene Vicente is an 84 year old female with known coronary artery disease with previous stents who presents to the ER with a presyncopal episode. Episode o ccurred around 2pm while sitting on the couch. Sudden onset dizziness and lightheadedness with feeling sick to stomach and chest burning sensation but no chest pain. No preceding eating or vasovagal precipitating events. She currently feels back to her baseline. She reports chronic intermittent throat burning sensation worse when she eats spicy foods. She does not take the pantoprazole regularly but rather as needed. No recent prednisone use for gout. She is confused whether she is taking duloxetine and atorvastatin. She reports taking the former not the latter but her medication pick ups suggest the opposite Her daughter also notes she has been more short of breath on exertion over the last month. No leg swelling, orthopnea or PND but she has noticed a dry cough while lying down. Discharge Exam Constitutional WD/WN, vitals as above Respiratory normal respiratory effort, lungs clear to auscultation Cardiovascular RRR, no murmur, no edema Gastrointestinal (Abdomen) normal bowel sounds, soft, nontender, no hepatosplenomegaly Psychiatric A+Ox3, euthymic affect Discharge Plan Discharge Items Patient Disposition: Home - Self-Care Reason For Visit: CHEST PAIN RULE OUT CT Discharge Diagnosis: Presyncope Condition on Discharge: Fair Activity: Resume your previous activity Non-emergency contact: Primary Care Provider Call non-emergency contact if: you have any medication questions and your symptoms worsen Follow-up/Referrals: Marlin Rowe MD [Primary Care Provider] - Diet: Carb Consistent or DM2 and Heart Healthy Addtl Attending Provider Instructions: You were observed at [facility] from November 16 - 2024 due to dizziness, chest pain and nausea. Suspect this was more vasovagal due to gastrointestinal reflux. Recommend you take your pantoprazole regularly rather than as needed to see if this reduces your episodes and helps with your cough. Stress echocardiogram was normal and even though some concern of fluid on lung from the chest XR your lungs were clear on ultrasound therefore less suspicion this is causing your shortness of breath on exertion. Recommend continuing to follow up with your stage electrician regarding this. We took your HbA1C which was 8.4. The goal for your diabetes is under 7 therefore recommend following up with your primary care physician for optimization of this. On discussion with your stage electrician recommend trial of lower carvedilol dose as prescribed to see if this reduces your vasovagal episodes. Pending Studies at Discharge: No Stand-Alone Forms: My [facility], Smoking Cessation Medications and DC Order Prescriptions: New carvedilol 3.125 mg tablet 3.125 mg PO BID Qty: 60 0RF Rx Instructions: must administer with a meal/food Continued isosorbide mononitrate 30 mg tablet extended release 24 hr 30 mg PO QAM Qty: 30 5RF Eliquis 2.5 mg tablet 2.5 mg PO BID Qty: 180 3RF allopurinol 100 mg tablet 100 mg PO DAILY metformin 1,000 mg tablet 1,000 mg PO QAM pantoprazole [Protonix] 40 mg tablet,delayed release (DR/EC) 40 mg PO BID Qty: 180 3RF atorvastatin 40 mg tablet 40 mg PO DAILY Qty: 30 5RF aspirin 81 mg Tablet,Delayed Release (Dr/Ec) 81 mg PO QAM Qty: 90 3RF nitroglycerin 0.4 mg tablet, sublingual 0.4 mg sublingual UD PRN (Reason: Chest Pain) cyanocobalamin (vitamin B-12) 1,000 mcg/mL Solution 1,000 mcg IM MONTHLY ondansetron 4 mg tablet,disintegrating 4 mg PO Q8H PRN (Reason: nausea and vomiting) Qty: 30 0RF Discontinued carvedilol 6.25 mg tablet 6.25 mg PO BID Qty: 180 3RF Rx Instructions: must administer with a meal/food No Action duloxetine 30 mg capsule,delayed release(DR/EC) 30 mg PO QAM 30 Days Qty: 30 2RF Discharge Orders: Discharge Order (Routine); Ordered 11/17/24 Ordered By: Vladimir Bautista/Other Patient Handouts: Managing Type 2 Diabetes Admission Data Admit Date/Time: 11/16/24 19:25 Attending Provider: Vladimir Park Admit Provider: Vladimir Park Primary Care Provider: Marlin Rowe Other Providers: Shawna Gates Other Interventions: Discharge Summary Assessment (RN) Last Done: 11/17/24 19:11 Hospital Stay Data Consultations 11/16/24 18:07 ED Decision to Admit Stat 11/17/24 07:25 Consult Cardiology Routine Diagnostic Imagining Performed 11/16/24 16:37 CT head/brain wo con Stat 11/16/24 16:59 CT abd pelvis wo con Stat Pending Results Patient Have Any Pending Studies at Discharge: No Discharge Instructions Given to Patient (Per Discharging Provider) You were observed at [facility] from November 16 - 2024 due to dizziness, chest pain and nausea. Suspect this was more vasovagal due to gastrointestinal reflux. Recommend you take your pantoprazole regularly rather than as needed to see if this reduces your episodes and helps with your cough. Stress echocardiogram was normal and even though some concern of fluid on lung from the chest XR your lungs were clear on ultrasound therefore less suspicion this is causing your shortness of breath on exertion. Recommend continuing to follow up with your stage electrician regarding this. We took your HbA1C which was 8.4. The goal for your diabetes is under 7 therefore recommend following up with your primary care physician for optimization of this. On discussion with your stage electrician recommend trial of lower carvedilol dose as prescribed to see if this reduces your vasovagal episodes. Total Time Total Time Spent Total Time Spent (In Minutes): 40 Coding Level of Care Code 24025 INP/OBS DISCH >30 MIN Diagnoses Chest pain R07.9 GERD (gastroesophageal reflux disease) K21.9 Vasovagal episode R55 Shortness of breath on exertion R06.02 Acute heart failure with preserved ejection fraction (HFpEF) I50.31
[2024-11-17 19:14] VITALS: PULSE 60
--- NOTE | 2024-11-19 07:29 | Electrocardiogram Report ---
Test Reason : Blood Pressure : */* mmHG Vent. Rate : 67 BPM Atrial Rate : 67 BPM P-R Int : 202 ms QRS Dur : 88 ms QT Int : 456 ms P-R-T Axes : 65 -13 -27 degrees QTcB Int : 481 ms Normal sinus rhythm with sinus arrhythmia Inferior infarct , age undetermined Abnormal ECG When compared with ECG of 14-Jun-2024 23:36, Inverted T waves have replaced nonspecific T wave abnormality in Inferior leads Confirmed by Mitchell Westbrook ([id number]) on 11/19/2024 7:29:25 AM Referred By: REFERRED SELF Confirmed By: Mitchell Westbrook
== END 2024-11-17 19:42 | disposition home or self-care (01) ==
LOC: SUATTDRO → ED 16:20 → 2N 16:20